=== PATIENT | female | born 1950 | race Caucasian/White ===

== ENCOUNTER 2017-02-20 22:14 | Inpatient (IN) | payer MEDICARE, BC ==
--- NOTE | 2017-02-21 00:02 | XR ---
EXAM: XR Right Knee, 3 views. CLINICAL HISTORY: Reason: Pain TECHNIQUE: Three views of the right knee. COMPARISON: No relevant prior studies available. FINDINGS: Bones/joints: Advanced osteoarthritis involves the knee joint with moderately severe involvement of the patellofemoral joint. Small bony density projecting along the superior-lateral aspect of patella may represent loose body. No evidence of acute fracture, dislocation or bony erosion. No significant knee joint effusion identified. Soft tissues: Mild soft tissue edematous changes anterior to the patellar tendon. IMPRESSION: Advanced osteoporotic about the knee and patellofemoral joint. Possible small loose body in the suprapatellar region. No evidence of acute fracture or dislocation.
[2017-02-21 00:26] LABS: Basophils # (A) 0.1 k/uL (0-0.2); Basophils % (A) 1 %; CH 28.5; CHCM 30.5; Eosinophils # (A) 1.3 k/uL (0-0.7); Eosinophils % (A) 14 %; HCT 28.9 % (34.0-46.0); HDW 2.83; HGB 9.2 gm/dL (11.4-16.0); Hypochromasia Moderate; Luc # (Auto) 0.25; Luc % (Auto) 3; Lymphocytes # (A) 3.5 k/uL (1.0-4.8); Lymphocytes % (A) 38 %; MCH 29.8 pg (25.0-35.0); MCHC 31.7 g/dL (31.0-37.0); MCV 93.9 fL (80.0-100.0); Mean Platelet Volume 8.1; Monocytes # (A) 0.4 k/uL (0-1.0); Monocytes % (A) 5 %; Neutrophils # (A) 3.7 k/uL (1.3-7.7); Neutrophils % (A) 41 %; RBC 3.07 m/uL (3.80-5.40); RDW 15.9 % (11.5-15.5); WBC 9.2 k/uL (3.8-10.6); WBC (Perox) 9.23
[2017-02-21 00:31] LABS: INR 1.2 (<1.1); Prothrombin Time 12.3 sec (9.0-12.0)
[2017-02-21 00:39] LABS: ALT 21 U/L (9-52); AST 17 U/L (14-36); Alkaline Phosphatase 123 U/L (38-126); Anion Gap 11 mmol/L; Blood Urea Nitrogen 13 mg/dL (7-17); Calcium 8.7 mg/dL (8.4-10.2); Carbon Dioxide 26 mmol/L (22-30); Chloride 105 mmol/L (98-107); Glucose 109 mg/dL (74-99); Non-African American GFR(MDRD) >60 (>60 ml/min/1.73 sqM); Potassium 3.8 mmol/L (3.5-5.1); Sodium 142 mmol/L (137-145); Total Bilirubin 0.3 mg/dL (0.2-1.3); Total Protein 6.8 g/dL (6.3-8.2)
[2017-02-21] MEDS ORDERED: NALOXONE 0.4 MG/ML 1 ML VIAL IV PRN (00:48)
--- NOTE | 2017-02-21 00:48 | ED ---
General Adult HPI - General Chief complaint: Extremity Injury, Lower Stated complaint: knee pain Time Seen by Provider: 02/20/17 23:02 Source: patient, family, RN notes reviewed, old records reviewed Mode of arrival: EMS Limitations: no limitations - History of Present Illness Initial comments: Chief complaint history of present illness a 26-year-old female who was in emergency room yesterday she fell on her knees. X-ray of the left knee was negative. She is on Xarelto since last night she developed significant amount of swelling with ecchymosis. Increased pain associated with increased effusion. Also some small hydrostatic blisters over the knee. Patient states her right knee became swollen and tender today. X-ray pending - Related Data Home Medications Medication Instructions Recorded Confirmed Dapsone 100 mg PO DAILY 06/20/14 02/26/16 Diazepam 4 mg PO QAM 06/20/14 02/26/16 Metoprolol Tartrate [Lopressor] 100 mg PO BID 06/20/14 02/26/16 sulfaSALAzine [Azulfidine] 500 mg PO Q6H 06/21/14 02/26/16 Acetaminophen Tab [Tylenol] 500 mg PO BID 02/26/16 02/26/16 Diazepam [Valium] 2 mg PO HS 02/26/16 02/26/16 Metaxalone [Skelaxin] 800 mg PO TID 02/26/16 02/26/16 Rivaroxaban [Xarelto] 20 mg PO DAILY 02/26/16 02/26/16 Previous Rx's Medication Instructions Recorded Aspirin EC [Ecotrin] 81 mg PO DAILY #30 tablet. 02/28/16 Atorvastatin [Lipitor] 20 mg PO HS #30 tab 02/28/16 Allergies Allergy/AdvReac Type Severity Reaction Status Date / Time codeine Allergy Nausea & Verified 02/20/17 22:28 Vomiting honey Allergy Swelling Verified 02/20/17 22:28 Iodinated Contrast Media - Allergy Swelling Verified 02/20/17 22:28 Oral and [Iodinated Contrast Media - IV Dye] iodine Allergy AVOIDS Verified 02/20/17 22:28 SHELL FISH ALLERGY morphine Allergy Nausea & Verified 02/20/17 22:28 Vomiting piroxicam [From Feldene] Allergy Swelling Verified 02/20/17 22:28 shellfish derived Allergy Swelling Verified 02/20/17 22:28 venom-honey bee Allergy Anaphylaxis Verified 02/20/17 22:28 [bee venom (honey bee)] Review of Systems ROS Statement: Those systems with pertinent positive or pertinent negative responses have been documented in the HPI. Review of systems no complaint of a headache or chest pain or shortness of breath no abdominal pain no nausea no vomiting. She has pain to both knees, left significantly swollen. All systems are reviewed. 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 Also hypertension, rheumatoid arthritis since a child. And fibromyalgia. The patient's past medical problems include A. fib which was treated with cardiac ablation. She is taking Xarelto for the previous stroke. She also had an appendectomy, cholecystectomy, bilateral knee arthroscopies. And bilateral tubal ligation. Family history not to drive. The patient has ALLERGIES to codeine, honey, iodine contrast material both oral and IV. Morphine, piroxicam, shellfish derived. ROS Other: All systems not noted in ROS Statement are negative. Past Medical History Past Medical History: CVA/TIA, Hypertension, Rheumatoid Arthritis (RA) Additional Past Medical History / Comment(s): fibromyalgia History of Any Multi-Drug Resistant Organisms: None Reported Past Surgical History: Appendectomy, Cardiac Ablation, Cholecystectomy, Orthopedic Surgery, Tubal Ligation Past Anesthesia/Blood Transfusion Reactions: No Reported Reaction Past Psychological History: Anxiety Smoking Status: Never smoker Past Alcohol Use History: None Reported Past Drug Use History: None Reported - Past Family History Mother Family Medical History: Congestive Heart Failure (CHF), CVA/TIA, Diabetes Mellitus, Hypertension Father Family Medical History: Myocardial Infarction ([place]) Sister(s) Family Medical History: Dementia Additional Family Medical History / Comment(s): schizophrenia Brother(s) Family Medical History: AFIB, Coronary Artery Disease (CAD), Dementia Additional Family Medical History / Comment(s): alcoholism, x3 stents General Exam - General Exam Comments Initial Comments: General: The patient is awake and alert, with swelling and pain to her left knee. Vital signs show temperature 97.9 pulse 80 history rate 18 pulse ox 97% room air blood pressure 177/85. Eye: Pupils are equal, round and reactive to light, extra-ocular movements are intact ; there is normal conjunctiva bilaterally. No signs of icterus. Ears, nose, mouth and throat: There are moist mucous membranes and no oral lesions. Poor dentition. Neck: The neck is supple, there is no tenderness . Cardiovascular: There is a regular rate and rhythm. Very faint murmur heard over the aortic valve. Respiratory: Lungs are clear to auscultation, respirations are non-labored, breath sounds are equal. No wheezes, stridor, rales, or rhonchi. Gastrointestinal: Soft, non-distended, non-tender abdomen without masses or organomegaly noted. There is no rebound or guarding present. No CVA tenderness. Bowel sounds are unremarkable. Back: There is no tenderness to palpation in the midline. There is no obvious deformity. No rashes noted. Musculoskeletal: Mild swelling tenderness to the right knee. X-ray is reviewed no acute fracture. Examination of left knee shows significant amount swelling with ecchymosis and small hydrostatic blisters from swelling. None are open. Sterile bandage be applied ice packs on top of that. Neurological: CN II-XII intact, There are no obvious motor or sensory deficits. Coordination appears grossly intact. Speech is normal. History of stroke that she states effect of the right side but no dysfunction appreciated this time. Skin: Skin is warm and dry and no rashes or lesions are noted. Limitations: no limitations Course Vital Signs 02/20/17 02/20/17 02/21/17 22:23 23:01 00:13 Temperature 97.9 F Pulse Rate 80 Respiratory 18 18 16 Rate Blood Pressure 177/85 O2 Sat by Pulse 97 97 Oximetry Medical Decision Making - Medical Decision Making Medical decision making; the patient's white count is 9.2 hemoglobin 9.2 hematocrit 28.9. X-ray of the right knee was done and reviewed by radiologist his final impression is advanced osteoporotic about the knee and patella femoral joint. Possible small loose body in the suprapatellar region. No evidence of acute fracture dislocation. As read by Dr. John The patient will be admitted with the leg elevated ice packs to help decrease swelling of the left knee. Still dressing to protect from infection from the small blisters associated with hydrostatic pressure secondary to swelling. The patient is on Xarelto which is increased the amount of knee effusion. The patient be admitted to Dr. Lara, on-call hospitalist. Case discussed with nurse practitioner to Zaheer Grigsby. - Lab Data Result diagrams: 02/21/17 00:05 Lab Results 02/21/17 Range/Units 00:05 WBC 9.2 (3.8-10.6) k/uL RBC 3.07 L (3.80-5.40) m/uL Hgb 9.2 L (11.4-16.0) gm/dL Hct 28.9 L (34.0-46.0) % MCV 93.9 (80.0-100.0) fL MCH 29.8 (25.0-35.0) pg MCHC 31.7 (31.0-37.0) g/dL RDW 15.9 H (11.5-15.5) % Plt Count 260 (150-450) k/uL Neutrophils % 41 % Lymphocytes % 38 % Monocytes % 5 % Eosinophils % 14 % Basophils % 1 % Neutrophils # 3.7 (1.3-7.7) k/uL Lymphocytes # 3.5 (1.0-4.8) k/uL Monocytes # 0.4 (0-1.0) k/uL Eosinophils # 1.3 H (0-0.7) k/uL Basophils # 0.1 (0-0.2) k/uL Hypochromasia Moderate Disposition Clinical Impression: Effusion of left knee Disposition: ADMITTED IP TO THIS HOSP
[2017-02-21 01:57] VITALS: BMI 42.5
[2017-02-21] MEDS: oxyCODONE-APAP 5-325MG 1 EACH TAB PO PRN ×3 (03:48→17:15)
[2017-02-21] MEDS: SODIUM CHLORIDE 0.9% 1,000 ML IV SCH ×2 (03:51→17:17)
[2017-02-21] MEDS: METOPROLOL TARTRATE 50 MG TAB PO SCH ×2 (08:11→20:50)
[2017-02-21] MEDS: DIAZEPAM 2 MG TAB PO SCH ×2 (08:11→20:14)
[2017-02-21] MEDS: CYCLOBENZAPRINE 10 MG TAB PO SCH ×3 (08:11→20:50)
--- NOTE | 2017-02-21 08:52 | P.CNOR ---
History of Present Illness - [facility] Consult date: 02/21/17 Consult reason: joint pain (Left knee) History of present illness: This is a 66-year-old female who fell in her home on 02/19/2017 sustaining injury to her left knee. She is on Xarelto for history of stroke and TIA. She came to the emergency department in the evening on 02/19/2017. X-rays were negative. She was discharged to home with pain medication. She returned to the emergency department last evening with increased swelling and bruising to the knee. She is also form some blisters to the area. She is admitted to internal medicine and we're consulted for orthopedic evaluation. Past Medical History Past Medical History: CVA/TIA, Hypertension, Rheumatoid Arthritis (RA) Additional Past Medical History / Comment(s): fibromyalgia History of Any Multi-Drug Resistant Organisms: None Reported Past Surgical History: Appendectomy, Cardiac Ablation, Cholecystectomy, Orthopedic Surgery, Tubal Ligation Past Anesthesia/Blood Transfusion Reactions: No Reported Reaction Past Psychological History: Anxiety Smoking Status: Never smoker Past Alcohol Use History: None Reported Past Drug Use History: None Reported - Past Family History Mother Family Medical History: Congestive Heart Failure (CHF), CVA/TIA, Diabetes Mellitus, Hypertension Father Family Medical History: Myocardial Infarction ([place]) Sister(s) Family Medical History: Dementia Additional Family Medical History / Comment(s): schizophrenia Brother(s) Family Medical History: AFIB, Coronary Artery Disease (CAD), Dementia Additional Family Medical History / Comment(s): alcoholism, x3 stents Medications and Allergies Home Medications Medication Instructions Recorded Confirmed Type Dapsone 100 mg PO DAILY 06/20/14 02/21/17 History Metoprolol Tartrate [Lopressor] 100 mg PO BID 06/20/14 02/21/17 History sulfaSALAzine [Azulfidine] 500 mg PO Q6H 06/21/14 02/21/17 History Acetaminophen Tab [Tylenol] 1,000 mg PO BID 02/26/16 02/21/17 History Diazepam [Valium] 10 mg PO DAILY PRN 02/26/16 02/21/17 History Rivaroxaban [Xarelto] 20 mg PO DAILY 02/26/16 02/21/17 History Albuterol Inhaler [Ventolin Hfa 1 - 2 puff INHALATION RT-Q6H PRN 02/21/17 History Inhaler] Amitriptyline HCl [Elavil] 10 mg PO DAILY 02/21/17 02/21/17 History Chlorzoxazone [Parafon Forte Dsc] 500 mg PO TID 02/21/17 02/21/17 History Allergies Allergy/AdvReac Type Severity Reaction Status Date / Time banana Allergy Itching Verified 02/21/17 08:24 codeine Allergy Nausea & Verified 02/21/17 07:58 Vomiting honey Allergy Swelling Verified 02/21/17 07:58 Iodinated Contrast Media - Allergy Swelling Verified 02/21/17 07:58 Oral and [Iodinated Contrast Media - IV Dye] iodine Allergy AVOIDS Verified 02/21/17 07:58 SHELL FISH ALLERGY morphine Allergy Nausea & Verified 02/21/17 07:58 Vomiting piroxicam [From Feldene] Allergy Swelling Verified 02/21/17 07:58 shellfish derived Allergy Swelling Verified 02/21/17 07:58 venom-honey bee Allergy Anaphylaxis Verified 02/21/17 07:58 [bee venom (honey bee)] Physical Examination This is a 66-year-old female in no acute distress. She is alert and oriented 3. Exam of the lower extremities reveals significant swelling and ecchymosis to the left knee. The skin is taut and tender with palpation. There are multiple blisters in various sizes about the anterior aspect of the knee. She is unable to actively flex the knee. She has full foot and ankle motion without difficulty or pain. Pedal pulses +2/4. Neurovascular status of lower extremity is intact. The remainder of her musculoskeletal l exam is unremarkable. Results X-rays of the left knee show moderate degenerative changes. No obvious fractures noted. - Labs Result Diagrams: 02/21/17 00:05 02/21/17 00:05 Assessment and Plan (1) Hematoma of left lower extremity Status: Acute (2) Hemarthrosis, left knee Status: Acute Plan: The clinical and x-ray findings are discussed with the patient. The blisters are dressed with Adaptic and gauze. A compressive Josef wrap is applied to the left lower extremity. I will review the case with Dr. Dumont she may potentially need a debridement in the operating room. She had breakfast today and is still on her Xarelto. The nurse is advised to hold the Xarelto. I will report back with further recommendations.
[2017-02-21] MEDS ORDERED: DIAZEPAM 5 MG TAB PO STA (11:04)
[2017-02-21] MEDS: ceFAZolin 2 GM in SODIUM CHLORIDE 0.9% 100 ML IVPB SCH ×2 (12:01→20:53)
--- NOTE | 2017-02-21 13:18 | P.GSCN ---
History of Present Illness History of present illness: 66-year-old white female, patient came to the emergency room dated 02/19/2017 with a history of fall at home on her left knee she developed swelling and hematoma formation noted of the left lower extremity involving the knee area patient had x-ray of the knee there was no broken bones noted Patient has been on Zaroxolyn for history of TIA and stroke in the past medical history history of hypertension, history of CVA in the past, history of rheumatoid arthritis, Personal history nonsmoker no known ALLERGIES On examination neck is supple no bruit appreciated Chest clear to auscultation first and second sound is normal Abdomen soft nontender Vascular examination femorals are 1+ dorsal pedis is palpable there is bruising noted on the anterior aspect of the left knee with some blister formation There is no evidence of vascular compromise most likely she has a hematoma and she she is also on his arousal patient scheduled to have a MRI of the knee we' ll follow with you thank very much Past Medical History Past Medical History: CVA/TIA, Hypertension, Rheumatoid Arthritis (RA) Additional Past Medical History / Comment(s): fibromyalgia History of Any Multi-Drug Resistant Organisms: None Reported Past Surgical History: Appendectomy, Cardiac Ablation, Cholecystectomy, Orthopedic Surgery, Tubal Ligation Past Anesthesia/Blood Transfusion Reactions: No Reported Reaction Past Psychological History: Anxiety Smoking Status: Never smoker Past Alcohol Use History: None Reported Past Drug Use History: None Reported - Past Family History Mother Family Medical History: Congestive Heart Failure (CHF), CVA/TIA, Diabetes Mellitus, Hypertension Father Family Medical History: Myocardial Infarction ([place]) Sister(s) Family Medical History: Dementia Additional Family Medical History / Comment(s): schizophrenia Brother(s) Family Medical History: AFIB, Coronary Artery Disease (CAD), Dementia Additional Family Medical History / Comment(s): alcoholism, x3 stents Medications and Allergies Home Medications Medication Instructions Recorded Confirmed Type Dapsone 100 mg PO DAILY 06/20/14 02/21/17 History Metoprolol Tartrate [Lopressor] 100 mg PO BID 06/20/14 02/21/17 History sulfaSALAzine [Azulfidine] 500 mg PO Q6H 06/21/14 02/21/17 History Acetaminophen Tab [Tylenol] 1,000 mg PO BID 02/26/16 02/21/17 History Diazepam [Valium] 10 mg PO DAILY PRN 02/26/16 02/21/17 History Rivaroxaban [Xarelto] 20 mg PO DAILY 02/26/16 02/21/17 History Albuterol Inhaler [Ventolin Hfa 1 - 2 puff INHALATION RT-Q6H PRN 02/21/17 History Inhaler] Amitriptyline HCl [Elavil] 10 mg PO DAILY 02/21/17 02/21/17 History Chlorzoxazone [Parafon Forte Dsc] 500 mg PO TID 02/21/17 02/21/17 History Allergies Allergy/AdvReac Type Severity Reaction Status Date / Time banana Allergy Itching Verified 02/21/17 08:24 codeine Allergy Nausea & Verified 02/21/17 07:58 Vomiting honey Allergy Swelling Verified 02/21/17 07:58 Iodinated Contrast Media - Allergy Swelling Verified 02/21/17 07:58 Oral and [Iodinated Contrast Media - IV Dye] iodine Allergy AVOIDS Verified 02/21/17 07:58 SHELL FISH ALLERGY morphine Allergy Nausea & Verified 02/21/17 07:58 Vomiting piroxicam [From Feldene] Allergy Swelling Verified 02/21/17 07:58 shellfish derived Allergy Swelling Verified 02/21/17 07:58 venom-honey bee Allergy Anaphylaxis Verified 02/21/17 07:58 [bee venom (honey bee)] Surgical - Exam Vital Signs Temp Pulse Resp BP Pulse Ox 97.9 F 80 18 177/85 97 02/20/17 22:23 02/20/17 22:23 02/20/17 22:23 02/20/17 22:23 02/20/17 22:23 Results - Labs 02/21/17 00:05 02/21/17 00:05
[2017-02-21] MEDS ORDERED: ALBUTEROL NEBULIZED 2.5 MG/3 ML INHALATION PRN ×2 (15:39→15:53)
[2017-02-21] MEDS ORDERED: CHLORZOXAZONE 500 MG PO SCH (16:00)
[2017-02-21] MEDS: sulfaSALAzine 500 MG TAB PO SCH ×2 (17:15→20:50)
[2017-02-21] MEDS: NYSTATIN 100,000 UNIT/GM POWD 15 GM TOPICAL SCH ×2 (17:16→20:51)
[2017-02-21] MEDS: ATORVASTATIN 20 MG TAB PO SCH (20:50)
--- NOTE | 2017-02-21 21:26 | MR ---
EXAMINATION TYPE: MR knee LT wo con DATE OF EXAM: 02/21/2017 8:05 PM COMPARISON: Left knee x-ray from 2 days earlier. HISTORY: Fall, Lt knee pain, swelling TECHNIQUE: Multiplanar, multisequence images of the knee is performed without IV contrast. FINDINGS: Exam is suboptimal secondary to patient's large body habitus. MEDIAL MENISCUS: Increased signal anterior posterior horn of medial meniscus is not distinctly extend to articular surface, findings are consistent with intrasubstance tear. LATERAL MENISCUS: Anterior and posterior horns are intact without tear. CRUCIATE LIGAMENTS: The anterior and posterior cruciate ligaments are intact and unremarkable. COLLATERAL LIGAMENTS: The medial collateral ligament and lateral collateral ligament complex are inta ct. Surrounding edema at level of medial collateral ligament is noted. EXTENSOR MECHANISM: Visualized quadriceps and patellar tendons are intact. EFFUSION: There is moderate to large suprapatellar joint effusion. POPLITEAL CYST: No popliteal/slaughter cyst. TRICOMPARTMENT SPACES: There is moderate to severe joint space loss with mild to moderate spurring pa tellofemoral compartment. There is mild to moderate spurring and joint space loss medial and lateral tibiofemoral compartments. CARTILAGE: Full-thickness chondromalacia patella along posterior patellar pole is present. There is m arked thinning of articular cartilage medial tibiofemoral compartment. BONE MARROW SIGNAL: Small bowel heterogeneity is seen. No occult fracture is noted. Some T2 hyperinte nse signal posterior patellar pole is noted at sites of full-thickness cartilaginous loss. OTHER: There is abundance of surrounding adipose tissue with mild to moderate diffuse subcutaneous ed charity is present. IMPRESSION: 1. No full-thickness meniscal or ligamentous tear is seen. Intrasubstance tear involving the medial m eniscus is present at anterior and posterior horns. 2. Mild to moderate MCL sprain injury. 3. Moderate to advanced tricompartment degenerative changes with significant chondromalacia patella a s detailed above. 4. Moderate to large suprapatellar joint effusion. 5. Mild to moderate diffuse subcutaneous edema.
--- NOTE | 2017-02-21 21:28 | HP ---
DATE OF ADMISSION: 02/21/2017 CHIEF COMPLAINT: Pain and swelling of the left knee. HISTORY OF PRESENT ILLNESS: This 66-year-old woman with a past medical history of multiple medical problems such as CVA, TIA, hypertension, history of rheumatoid arthritis, history of proximal cardiac arrhythmia, history of cardiac ablation, history of fibromyalgia, history of cholecystectomy, history of DJD, anxiety, being followed by Dr. Adames in the outpatient setting, was apparently taking Xarelto for some time. The patient came from the bathroom, fell on her knees. The left knee developed a significant amount of swelling and ecchymosis by nighttime, and the patient came to [facility] and was admitted for further evaluation and treatment. The patient was thought to have significant hematoma of the left knee. Patient also had some bruising, and some blisters to the area were also noted. Orthopedics is evaluating the patient and recommending possible debridement in the operating room. The patient is being closely monitored. There is no history of any fever, rigor, or chills. No history of any headache, loss of consciousness, seizures. PAST MEDICAL HISTORY: 1. History of CVA, TIA. 2. Hypertension. 3. Cardiac arrhythmia. 4. Rheumatoid arthritis. 5. Fibromyalgia. 6. Appendectomy. 7. Cardiac ablation. 8. Anxiety. HOME MEDICATIONS: 1. Albuterol 1 to 2 puffs q.6 p.r.n. 2. Azulfidine 500 mg q.6. 3. Xarelto 20 mg daily. 4. Lopressor 100 mg b.i.d. 5. Valium 10 mg p.o. daily p.r.n. 6. Dapsone 100 mg p.o. daily. 7. Parafon 500 mg p.o. t.i.d. 8. Ecotrin 81 mg p.o. daily. 9. Elavil 10 mg p.o. daily. 10. Tylenol 1000 mg p.o. b.i.d. ALLERGIES: 1. BANANA. 2. CODEINE. 3. HONEY. 4. IODINATED CONTRAST DYE. 5. MORPHINE. 6. PIROXICAM. 7. SHELLFISH. 8. HONEYBEE VENOM. FAMILY HISTORY: History of CHF, CVA, TIA, diabetes, hypertension, schizophrenia in the family. SOCIAL HISTORY: No history of smoking. No history of alcohol intake. REVIEW OF SYSTEMS: ENT: No diminishing hearing. No diminished vision. CARDIOVASCULAR SYSTEM: No angina, palpitations. RESPIRATORY SYSTEM: No cough, hemoptysis. GI: No nausea, vomiting. : No dysuria, retention. NERVOUS SYSTEM: As mentioned earlier. ALLERGY/IMMUNOLOGY: No asthma, hayfever. MUSCULOSKELETAL: As mentioned earlier. HEMATOLOGY/ONCOLOGY: As mentioned earlier. ENDOCRINE: No history of diabetes or hypothyroidism. CONSTITUTIONAL: As mentioned earlier. DERMATOLOGY: Negative. RHEUMATOLOGY: Negative. PSYCHIATRY: As mentioned earlier. PHYSICAL EXAMINATION: Patient is alert and oriented x3. Pulse 78, blood pressure 156/82, respiration 16, temperature 99.1, pulse ox 92% on room air. HEENT: Conjunctivae normal. Oral mucosa moist. NECK: No jugular venous distention. No carotid bruit. No lymph node enlargement. CARDIOVASCULAR SYSTEM: S1, S2 muffled. No S3. No S4. RESPIRATORY SYSTEM: Breath sounds diminished at the bases. A few scattered rhonchi. No crackles. ABDOMEN: Soft, nontender. No mass palpable. LEGS: Left knee swelling; painful. Pulses felt normally. NERVOUS SYSTEM: Higher functions as mentioned earlier. Moves all 4 limbs. No focal motor or sensory deficit. LYMPHATICS: No lymph node palpable in neck, axillae or groin. SKIN: No ulcer, rash, bleeding. LABS: WBC 9.2, hemoglobin 9.2. INR is 1.2. Glucose 109. ASSESSMENT: 1. Status post fall and left knee hematoma. 2. Anemia, normocytic; anemia of chronic disease possibly. 3. On Xarelto. 4. Possible hemarthrosis of the left knee. 5. History of transient ischemic attack of the left hemisphere previously. 6. Hyperlipidemia. 7. Hypertriglyceridemia. 8. Hypertension. 9. History of rheumatoid arthritis. 10. History of fibromyalgia. 11. History of appendectomy. 12. History of cardiac ablation. 13. History of cholecystectomy. 14. History of degenerative joint disease. 15. History of anxiety. RECOMMENDATIONS AND DISCUSSION: In this 66-year-old woman who presented with multiple complex medical issues, we will monitor the patient closely, continue the current medication, continue with symptomatic treatment. I recommend holding the Xarelto at this time. I would recommend an orthopedic evaluation. Repeat labs hemoglobin. Cardiology has also been consulted. Further recommendations to follow. A copy of this dictation is being forwarded to Dr. Adames, who is the primary physician. Vascular Surgery has also been consulted for evaluation of the lower leg. LARISSA
[2017-02-22] MEDS: oxyCODONE-APAP 5-325MG 1 EACH TAB PO PRN ×3 (02:28→16:51)
[2017-02-22] MEDS: sulfaSALAzine 500 MG TAB PO SCH ×4 (03:45→22:14)
[2017-02-22] MEDS ORDERED: diphenhydrAMINE 50 MG/ML 1 ML VIAL IVP ONE (07:38)
[2017-02-22] MEDS ORDERED: methylPREDNISolone SOD SUCCI 125 MG/2 ML VIAL IV ONE (07:38)
[2017-02-22] MEDS ORDERED: FAMOTIDINE 20 MG/2 ML VIAL IV ONE (07:38)
[2017-02-22] MEDS ORDERED: RX INFO: IV CONTRAST WAS GIVEN 1 EACH MISC MISCELLANE PRN (07:38)
[2017-02-22 08:17] LABS: Anisocytosis Slight; Basophils # (A) 0.1 k/uL (0-0.2); Basophils % (A) 1 %; CH 28.7; CHCM 30.3; Eosinophils # (A) 1.1 k/uL (0-0.7); Eosinophils % (A) 9 %; HCT 28.1 % (34.0-46.0); HDW 2.62; HGB 8.6 gm/dL (11.4-16.0); Hypochromasia Moderate; Luc # (Auto) 0.35; Luc % (Auto) 3; Lymphocytes # (A) 4.2 k/uL (1.0-4.8); Lymphocytes % (A) 35 %; MCH 29.2 pg (25.0-35.0); MCHC 30.6 g/dL (31.0-37.0); MCV 95.4 fL (80.0-100.0); Mean Platelet Volume 7.5; Monocytes # (A) 0.8 k/uL (0-1.0); Monocytes % (A) 7 %; Neutrophils # (A) 5.3 k/uL (1.3-7.7); Neutrophils % (A) 45 %; RBC 2.94 m/uL (3.80-5.40); RDW 16.3 % (11.5-15.5); WBC 11.9 k/uL (3.8-10.6); WBC (Perox) 11.69
[2017-02-22 08:22] LABS: Anion Gap 11 mmol/L; Blood Urea Nitrogen 13 mg/dL (7-17); Calcium 8.6 mg/dL (8.4-10.2); Carbon Dioxide 24 mmol/L (22-30); Chloride 103 mmol/L (98-107); Glucose 111 mg/dL (74-99); Non-African American GFR(MDRD) >60 (>60 ml/min/1.73 sqM); Potassium 4.4 mmol/L (3.5-5.1); Sodium 138 mmol/L (137-145)
[2017-02-22] MEDS: DAPSONE 25 MG TAB PO SCH (10:06)
[2017-02-22] MEDS: CYCLOBENZAPRINE 10 MG TAB PO SCH ×3 (10:06→22:14)
[2017-02-22] MEDS: METOPROLOL TARTRATE 50 MG TAB PO SCH ×2 (10:06→22:14)
[2017-02-22] MEDS: AMITRIPTYLINE HCL 10 MG TAB PO SCH (10:07)
[2017-02-22] MEDS: ceFAZolin 2 GM in SODIUM CHLORIDE 0.9% 100 ML IVPB SCH ×2 (10:12→22:13)
--- NOTE | 2017-02-22 10:36 | CT ---
EXAMINATION TYPE: CT angio lower extremity LT DATE OF EXAM: 02/22/2017 10:22 AM COMPARISON: NONE HISTORY: Lt lower extremity occlusion CT DLP: 1055.9 mGycm Automated exposure control for dose reduction was used. TECHNIQUE: Performed with IV Contrast, patient injected with 100 mL of Omnipaque 350. 3-D reconstruction imaging of the lower extremities was performed at a separate workstation.. FINDINGS: Imaged portions of the common iliac arteries are patent bilaterally. Mild plaque is seen at the right -sided bifurcation. The internal and external iliac arteries as well as the common femoral arteries, profundofemoral and superficial femoral arteries are all patent. Minimal scattered calcified plaque d isease is seen. Popliteal arteries are also patent bilaterally with mild calcific plaque at the right popliteal artery resulting in a 30% stenosis. Tibial peroneal trunks are patent bilaterally as are t he anterior and posterior tibial arteries and peroneal arteries. Runoff to both feet is limited. There is a soft tissue edema overlying the left knee. Moderate joint effusion. Suspect a small subcut aneous hematoma. No obvious displaced fracture at this time. IMPRESSION: 1. VERY MILD SCATTERED CALCIFIC PLAQUE DISEASE WITHOUT VASCULAR OCCLUSION. 2. POSTTRAUMATIC CHANGES TO THE LEFT KNEE WITH SUBCUTANEOUS HEMATOMA MEASURING 4.5 X 0.2 CM. JOINT EF FUSION ALSO NOTED.
--- NOTE | 2017-02-22 12:38 | P.PN ---
Subjective Principal diagnosis: Left knee edema/effusion Patient is seen at bedside this am. She continues to have pain at the left knee as expected. She has no new complaints. She denies new numbness or tingling. She denies calf pain, fever, chills, chest pain, or SOB. Objective - Vital Signs Vital signs: Vital Signs Temp 98.6 F 02/22/17 07:00 Pulse 110 H 02/22/17 07:00 Resp 16 02/22/17 07:00 BP 102/77 02/22/17 07:00 Pulse Ox 94 L 02/22/17 07:00 Intake & Output 02/21/17 02/22/17 02/22/17 18:59 06:59 18:59 Intake Total 740 100 Balance 740 100 Intake: IV 260 Sodium Chloride 0.9% 1, 160 000 ml @ 20 mls/hr IV . Q24H BING Rx#:[id number] ceFAZolin 2 gm In Sodium 100 Chloride 0.9% 100 ml @ 100 mls/hr IVPB Q12HR BING Rx#:[id number] Oral 480 100 Other: Voiding Method Diaper # Voids 2 1 - Exam Global echymosis and edema of the left knee. It is no put through range of motion. Blisters intact. There is no erythema and the joint is not hot to touch. Calf is soft. Motor intact at the ankle and foot. Sensation to light touch intact throughout left lower extremity. Good perfusion distally. The foot and toes are warm to touch. - Constitutional General appearance: Present: no acute distress, obese - Psychiatric Psychiatric: Present: A&O x's 3, appropriate affect, intact judgment & insight - Labs CBC & Chem 7: 02/22/17 07:25 02/22/17 07:25 Labs: Abnormal Lab Results - Last 24 Hours (Table) 02/22/17 02/22/17 Range/Units 07:25 07:25 WBC 11.9 H (3.8-10.6) k/uL RBC 2.94 L (3.80-5.40) m/uL Hgb 8.6 L (11.4-16.0) gm/dL Hct 28.1 L (34.0-46.0) % MCHC 30.6 L (31.0-37.0) g/dL RDW 16.3 H (11.5-15.5) % Eosinophils # 1.1 H (0-0.7) k/uL Glucose 111 H (74-99) mg/dL - Imaging and Cardiology MRI of the left knee showed effusion in the suprapatellar compartment. There is mild meniscus tear and MCL sprain. Assessment and Plan (1) Hematoma of left lower extremity Narrative/Plan: Will continue to monitor the knee. Continue pain management and elevation of left lower extremity. Surgical intervention not planned for now. Vascular and internal medicine are following as well. Further recommendations forthcoming Status: Acute Time with Patient: Less than 30
[2017-02-22] MEDS: DIAZEPAM 2 MG TAB PO SCH ×2 (13:13→22:14)
--- NOTE | 2017-02-22 16:16 | CONS ---
DATE OF CONSULTATION: 02/22/2017 REASON FOR CONSULTATION: Left knee pre-patellar hematoma. HISTORY OF PRESENT ILLNESS: Ciarra is a very pleasant 66-year-old female whom I visited at the bedside today. Her history is that she fell in her home on the evening of 02/19/2017, sustaining injury to her left knee. She is on Xarelto for history of stroke and TIA. She initially came to the emergency department in the evening of 02/19/2017. X-rays were negative. She was then discharged home with pain medication. She then returned to the emergency department the evening of 02/20/2017 with increased swelling and bruising to the knee. She also noted some form of clear blisters in the area. She was admitted to Internal Medicine and we were consulted for orthopedic evaluation. MEDICAL HISTORY: 1. CVA. 2. TIA. 3. Hypertension. 4. Rheumatoid arthritis. 5. Fibromyalgia. SURGICAL HISTORY: 1. Appendectomy. 2. Cardiac ablation. 3. Cholecystectomy. 4. Tubal ligation. She denies nicotine and alcohol use. She does live at home. Medications include: 1. Dapsone. 2. Metoprolol. 3. Sulfasalazine. 4. Acetaminophen. 5. Diazepam. 6. Rivaroxaban. 7. Albuterol inhaler. 8. Amitriptyline. 9. Chlorzoxazone. ALLERGIES: 1. BANANA. 2. CODEINE. 3. HONEY. 4. IODINE CONTRAST MEDIA. 5. IODINE. 6. MORPHINE. PHYSICAL EXAMINATION: On examination she is resting very comfortably. She is feeling a little bit better today. She is alert and oriented x3. She did have an Josef wrap around the knee. I did remove this. She does have multiple serous blistering around the knee. There is significant ecchymosis and bruising noted as well. The skin is taut and tender to palpation. She has very minimal to no swelling distally in the calf. She has intact flexion-extension, inversion-eversion of the ankle. She has intact flexion-extension of all of her toes. She has intact lateral, medial, plantar and first dorsal web space sensation. She has a 2+ posterior tibial pulse. X-rays of the knee show moderate degenerative arthritic changes. There are no obvious fractures noted. There is no evidence of osseous lesions. She did have an MRI noted about the knee. This is a ( ) report; I have not been able to review the images, but the report notes a mild medial collateral ligament sprain as well as a potential degenerative meniscus tear, but no other intra-articular process noted. There is a large subcutaneous hematoma noted about the knee. LABORATORY EVALUATION OF 02/21: Hemoglobin was 9.2, platelets 260, white count 9.2. ASSESSMENT: Subcutaneous hematoma of the left knee. RECOMMENDATIONS: She does have a fairly significant subcutaneous hematoma of the left knee. She was on Xarelto. Draining her hematoma right now would put her at increased bleeding risk. We did have Vascular Surgery see her as well. I do believe that they ordered a CT angiogram to evaluate the arterial system around the knee as well. I did talk to Dr. Monsalve, the vascular surgeon, about this earlier today. His recommendation was to hold off on any surgical evacuation of the hematoma at this time, waiting for the Xarelto effect to dissipate. My worry of decompressing her hematoma is skin breakdown. I do believe she would be at risk of wound dehiscence if an open decompression were done. After consulting with Dr. Monsalve, at this point in time we are going to recommend watching the hematoma, continue with wraps and elevation, and allow it to resolve on its own as much as possible. I did relay this to Hannah Mercer. She is in agreement with the plan going forward. All of her questions were answered to her satisfaction.
[2017-02-22] MEDS: NYSTATIN 100,000 UNIT/GM POWD 15 GM TOPICAL SCH ×2 (18:40→22:14)
[2017-02-22] MEDS: ATORVASTATIN 20 MG TAB PO SCH (22:14)
[2017-02-23] MEDS: SODIUM CHLORIDE 0.9% 1,000 ML IV SCH (02:49)
[2017-02-23] MEDS: sulfaSALAzine 500 MG TAB PO SCH ×4 (04:19→21:10)
--- NOTE | 2017-02-23 07:56 | PN ---
DATE OF SERVICE: 02/22/2017 This 66-year-old woman who was admitted after fall and left hematoma is being closely monitored at this time. Left lower extremity CTA was done today which showed very mild scattered calcific plaque without any vascular occlusion and posttraumatic changes of the left knee with subcutaneous hematoma, measuring 4.5 x 0.2 cm. Joint effusion also noted. The orthopedic service is following the patient closely with conservative line of management with pain management and elevation of the lower extremity. Surgery interventions is not planned. On exam, alert and oriented x3, pulse 110, blood pressure 102/77, respiratory rate 16, temperature 98.6, pulse ox 94% on room air. HEENT: Conjunctivae normal. NECK: No jugular venous distention. CARDIOVASCULAR: S1 and S2, muffled. RESPIRATORY: Breath sounds diminished at the bases. No rhonchi, no crackles. ABDOMEN: Soft, nontender. LEGS: Status post left knee hematoma, extensive hematoma of thigh area also present. NERVOUS SYSTEM: No focal deficits. LABS: WBC 11.9, hemoglobin 8.6. Otherwise, glucose 111. ASSESSMENT: 1. Status post fall and left knee hematoma. 2. Anemia, normocytic anemia of chronic disease possibly. 3. On Xarelto. 4. Possible hemarthrosis of the left knee. 5. History of transient ischemic attack of the left hemisphere previously. 6. Hyperlipidemia. 7. Hypertriglyceridemia. 8. Hypertension, essential. 9. History of rheumatoid arthritis. 10. History of fibromyalgia. 11. History of appendectomy. 12. History of cardiac ablation. 13. History of cholecystectomy. 14. History of degenerative joint disease. 15. History of anxiety. 16. FULL CODE. RECOMMENDATIONS AND DISCUSSION: In this 66-year-old woman who presented with multiple complex medical issues, we will monitor the patient closely. Continue the current medications. Continue symptomatic treatment. Otherwise, at this time, I would recommend to repeat labs. Monitor hemoglobin closely. Otherwise, closely follow with orthopedic surgery. Further recommendations to follow.
[2017-02-23 08:03] LABS: Anisocytosis Slight; Basophils # (A) 0.1 k/uL (0-0.2); Basophils % (A) 0 %; CH 27.9; CHCM 29.7; Eosinophils % (A) 0 %; HCT 25.8 % (34.0-46.0); HDW 2.81; Hypochromasia Marked; Luc # (Auto) 0.44; Luc % (Auto) 4; Lymphocytes # (A) 3.5 k/uL (1.0-4.8); Lymphocytes % (A) 31 %; MCH 29.3 pg (25.0-35.0); MCHC 30.9 g/dL (31.0-37.0); MCV 94.6 fL (80.0-100.0); Mean Platelet Volume 7.4; Monocytes % (A) 9 %; Neutrophils # (A) 6.4 k/uL (1.3-7.7); Neutrophils % (A) 56 %; RBC 2.73 m/uL (3.80-5.40); RDW 16.4 % (11.5-15.5); WBC 11.5 k/uL (3.8-10.6)
[2017-02-23 08:53] LABS: Anion Gap 10 mmol/L; Blood Urea Nitrogen 24 mg/dL (7-17); Calcium 8.6 mg/dL (8.4-10.2); Carbon Dioxide 23 mmol/L (22-30); Chloride 107 mmol/L (98-107); Glucose 106 mg/dL (74-99); Non-African American GFR(MDRD) >60 (>60 ml/min/1.73 sqM); Potassium 4.4 mmol/L (3.5-5.1); Sodium 140 mmol/L (137-145)
[2017-02-23] MEDS: CYCLOBENZAPRINE 10 MG TAB PO SCH ×3 (09:05→21:10)
[2017-02-23] MEDS: AMITRIPTYLINE HCL 10 MG TAB PO SCH (09:05)
[2017-02-23] MEDS: DAPSONE 25 MG TAB PO SCH (09:06)
[2017-02-23] MEDS: METOPROLOL TARTRATE 50 MG TAB PO SCH ×2 (09:06→20:54)
[2017-02-23] MEDS: ceFAZolin 2 GM in SODIUM CHLORIDE 0.9% 100 ML IVPB SCH ×2 (09:11→20:54)
[2017-02-23] MEDS: oxyCODONE-APAP 5-325MG 1 EACH TAB PO PRN ×3 (09:11→23:33)
[2017-02-23] MEDS: DIAZEPAM 2 MG TAB PO SCH ×2 (09:12→20:54)
--- NOTE | 2017-02-23 10:24 | P.PN ---
Subjective Principal diagnosis: Left knee hematoma/effusion Patient is seen at bedside this am. She continues to have pain at the left knee as expected. She doesn't feel it is worse. She has right knee pain as well which she states has bothered her since her fall. Xrays of the right knee taken on day of admission through ED shows advanced DJD/OA particularly of the patellofemoral compartment. No acute appearing fractures or dislocations. She has no new complaints. She denies new numbness or tingling. She denies calf pain , fever, chills, chest pain, or SOB. Objective - Vital Signs Vital signs: Vital Signs Temp 98.4 F 02/23/17 02:00 Pulse 107 H 02/23/17 02:00 Resp 16 02/23/17 02:00 BP 127/77 02/23/17 02:00 Pulse Ox 90 L 02/23/17 02:00 Intake & Output 02/22/17 02/23/17 02/23/17 18:59 06:59 18:59 Intake Total 240 Balance 240 Intake: IV 240 Sodium Chloride 0.9% 1, 140 000 ml @ 20 mls/hr IV . Q24H BING Rx#:[id number] ceFAZolin 2 gm In Sodium 100 Chloride 0.9% 100 ml @ 100 mls/hr IVPB Q12HR BING Rx#:[id number] Other: Voiding Method Diaper # Voids 1 2 - Exam Global echymosis and edema of the left knee. It is no put through range of motion as minimal movement ellicits knee pain. Blisters are benign and noninfectious appearing. There is no erythema and the joint is not hot to touch. Calf is soft. Motor intact at the ankle and foot. Sensation to light touch intact throughout left lower extremity. Good perfusion distally. The foot and toes are warm to touch. Right knee is benign with mild effusion present. No erythema or echymosis. Tender at the lateral joint line. Minimal flexion reproduces knee pain. Full extension present. Calf is soft and nontender. Dorsalis pedis pulses 2+ and less than 2 sec cap refill present. Motor intact at the ankle and foot. Sensation to light touch intact throughout left lower extremity. - Constitutional General appearance: Present: no acute distress - Psychiatric Psychiatric: Present: A&O x's 3, appropriate affect, intact judgment & insight - Labs CBC & Chem 7: 02/23/17 07:28 02/23/17 07:28 Labs: Abnormal Lab Results - Last 24 Hours (Table) 02/23/17 02/23/17 Range/Units 07:28 07:28 WBC 11.5 H (3.8-10.6) k/uL RBC 2.73 L (3.80-5.40) m/uL Hgb 8.0 L (11.4-16.0) gm/dL Hct 25.8 L (34.0-46.0) % MCHC 30.9 L (31.0-37.0) g/dL RDW 16.4 H (11.5-15.5) % BUN 24 H (7-17) mg/dL Glucose 106 H (74-99) mg/dL Assessment and Plan (1) Hematoma of left lower extremity Narrative/Plan: Will continue to monitor the knee. Continue pain management and elevation of left lower extremity. Surgical intervention not planned for now. Vascular and internal medicine are following as well. Will plan to order knee immobilizer for the left knee. Should the hematoma continue to improve she may be discharged from an orthopedic standpoint tomorrow. Will continue to follow. Status: Acute Time with Patient: Less than 30
--- NOTE | 2017-02-23 12:40 | CONS ---
DATE OF CONSULTATION: Mrs. Mercer is a 66-year-old female who is seen for cardiac evaluation. This patient's medical records reviewed. This patient had a history of fall and subsequently admitted with a hematoma of the left knee. There is no definite evidence of any fracture. This patient has a past history of stroke and TIA and she has been on Xarelto. She has a history of atrial fibrillation. Patient continues to have pain in the left knee but the hematoma is not getting worse and it is stable. Patient's home medications included Diazepam, Lopressor, Tylenol, Skelaxin, Xarelto, and baby aspirin. Past medical history includes a past history of stroke and a past history of a TIA, history of atrial fibrillation. The patient has a prior history of ablation, cholecystectomy, appendectomy, bilateral knee arthroscopy and tubal ligation. Physical examination at present reveals a 66-year-old obesely built female who does not appear to be in any acute distress. The patient's heart rate is 100 to 114, it appears irregular. Blood pressure is 127/77 mmHg. HEENT examination is negative. Neck is supple. There is no increase in jugular venous pressure. Both the carotid pulses are felt. There is no bruit. Chest is symmetrical. HEART: The PMI is not felt. First and second heart sounds are normal. Lungs are clinically clear to auscultation and percussion. Abdomen is soft. Liver and spleen are not enlarged. EXTREMITIES: Peripheral pulsations are not felt. Patient's electrolytes are normal. Creatinine is 0.72. GFR is 0.7. Patient's hemoglobin is stable between 8 and 8.6. FINAL IMPRESSION: This patient is admitted with fall and hematoma of the left knee. There is no effusion in the knee joint. This patient has a past history of stroke and transient ischemic attack and atrial fibrillation. Patient is a high risk for recurrent stroke. In view that, if the patient's hematoma remains stable, I will recommend to resume the patient's Xarelto 20 mg daily. We will recommend to discontinue the aspirin. EKG will be done and echo and Doppler study will be done.
[2017-02-23] MEDS: NYSTATIN 100,000 UNIT/GM POWD 15 GM TOPICAL SCH ×3 (13:24→21:03)
[2017-02-23] MEDS ORDERED: RIVAROXABAN 10 MG TAB PO SCH (17:30)
[2017-02-23] MEDS: ATORVASTATIN 20 MG TAB PO SCH (20:54)
[2017-02-24] MEDS: SODIUM CHLORIDE 0.9% 1,000 ML IV SCH (00:34)
[2017-02-24] MEDS: sulfaSALAzine 500 MG TAB PO SCH ×4 (05:04→21:44)
[2017-02-24] MEDS ORDERED: KETOROLAC 30 MG/ML 1 ML VIAL IM PRN (05:23)
[2017-02-24] MEDS ORDERED: diphenhydrAMINE 50 MG/ML 1 ML VIAL IVP PRN (05:24)
[2017-02-24] MEDS: METOPROLOL TARTRATE 50 MG TAB PO SCH ×2 (07:30→21:44)
[2017-02-24] MEDS: ceFAZolin 2 GM in SODIUM CHLORIDE 0.9% 100 ML IVPB SCH ×2 (07:30→17:16)
[2017-02-24] MEDS: oxyCODONE-APAP 5-325MG 1 EACH TAB PO PRN ×2 (07:34→21:44)
[2017-02-24 07:43] LABS: Anion Gap 10 mmol/L; Blood Urea Nitrogen 27 mg/dL (7-17); Calcium 8.4 mg/dL (8.4-10.2); Carbon Dioxide 26 mmol/L (22-30); Chloride 104 mmol/L (98-107); Glucose 89 mg/dL (74-99); Non-African American GFR(MDRD) >60 (>60 ml/min/1.73 sqM); Potassium 4.1 mmol/L (3.5-5.1); Sodium 140 mmol/L (137-145)
[2017-02-24 07:54] LABS: Anisocytosis Slight; Basophils # (A) 0.1 k/uL (0-0.2); Basophils % (A) 1 %; CH 28.7; CHCM 29.9; Eosinophils # (A) 0.4 k/uL (0-0.7); Eosinophils % (A) 4 %; HCT 27.5 % (34.0-46.0); HDW 2.77; HGB 8.3 gm/dL (11.4-16.0); Hypochromasia Moderate; Luc # (Auto) 0.25; Luc % (Auto) 2; Lymphocytes # (A) 3.9 k/uL (1.0-4.8); Lymphocytes % (A) 36 %; MCH 29.1 pg (25.0-35.0); MCHC 30.1 g/dL (31.0-37.0); MCV 96.6 fL (80.0-100.0); Macrocytosis Slight; Mean Platelet Volume 7.5; Monocytes # (A) 0.6 k/uL (0-1.0); Monocytes % (A) 6 %; Neutrophils # (A) 5.6 k/uL (1.3-7.7); Neutrophils % (A) 52 %; RBC 2.85 m/uL (3.80-5.40); RDW 16.8 % (11.5-15.5); WBC 10.8 k/uL (3.8-10.6); WBC (Perox) 11.26
[2017-02-24] MEDS ORDERED: METOPROLOL TARTRATE 25 MG TAB PO STA (09:46)
--- NOTE | 2017-02-24 10:22 | ECHOF ---
Referral Reason:ATRIAL FIBRILLATION MEASUREMENTS -------- HEIGHT: 160.0 cm WEIGHT: 108.9 kg BP: 122/77 RVIDd: 2.7 cm (< 3.3) IVSd: 1.3 cm (0.6 - 1.1) LVIDd: 3.4 cm (3.9 - 5.3) LVPWd: 1.3 cm (0.6 - 1.1) IVSs: 1.8 cm LVIDs: 2.6 cm LVPWs: 1.8 cm LA Diam: 2.8 cm (2.7 - 3.8) Ao Diam: 2.4 cm (2.0 - 3.7) AV Cusp: 1.7 cm (1.5 - 2.6) LA Diam: 2.9 cm (2.7 - 3.8) MV EXCURSION: 15.618 mm (> 18.000) MV EF SLOPE: 90 mm/s (70 - 150) EPSS: 0.3 cm RAP: 5.00 mmHg RVSP: 23.73 mmHg FINDINGS -------- Atrial fibrillation. This was a technically difficult study with suboptimal views. There is mild concentric left ventricular hypertrophy. Overall left ventricular systolic function is low-normal with, an EF between 50 - 55 %. The right ventricle is normal in size. The left atrial size is normal. The right atrium is normal in size. 1.5mg of Definity was utilized for enhancement of images Trace to mild aortic regurgitation. Mild mitral annular calcification present. There is trace mitral regurgitation. Mild tricuspid regurgitation present. The right ventricular systolic pressure, as measured by Doppler, is 23.73mmHg. The pulmonic valve was not well visualized. The aortic root size is normal. Normal inferior vena cava with normal inspiratory collapse consistent with estimated right atrial pressure of 5 mmHg. Echo free space may represent effusion or a pericardial fat pad. CONCLUSIONS -------- 1. Atrial fibrillation. 2. Mild mitral annular calcification present. 3. There is trace mitral regurgitation. 4. Mild tricuspid regurgitation present. 5. The right ventricular systolic pressure, as measured by Doppler, is 23.73mmHg. 6. The pulmonic valve was not well visualized. 7. The aortic root size is normal. 8. Normal inferior vena cava with normal inspiratory collapse consistent with estimated right atrial pressure of 5 mmHg. 9. Echo free space may represent effusion or a pericardial fat pad. 10. This was a technically difficult study with suboptimal views. 11. There is mild concentric left ventricular hypertrophy. 12. Overall left ventricular systolic function is low-normal with, an EF between 50 - 55 %. 13. The right ventricle is normal in size. 14. The left atrial size is normal. 15. The right atrium is normal in size. 16. 1.5mg of Definity was utilized for enhancement of images 17. Trace to mild aortic regurgitation. WET FINISHER: Dexter Guy RDCS
--- NOTE | 2017-02-24 12:37 | PN ---
This patient came with a hematoma over the left knee. The patient is undergoing incision and drainage. Patient's heart rate now is 100 to 120. She is asymptomatic otherwise. First and second heart sounds are normal. Lungs are clear to auscultation and percussion. Patient was taking Lopressor ( ) mg b.i.d. at home. We will increase the dose of Lopressor. Continue otherwise current medications.
[2017-02-24] MEDS: AMITRIPTYLINE HCL 10 MG TAB PO SCH (15:23)
[2017-02-24] MEDS: NYSTATIN 100,000 UNIT/GM POWD 15 GM TOPICAL SCH ×3 (15:23→21:46)
[2017-02-24] MEDS: CYCLOBENZAPRINE 10 MG TAB PO SCH ×3 (15:23→21:44)
[2017-02-24] MEDS: DIAZEPAM 2 MG TAB PO SCH (15:23)
[2017-02-24] MEDS: DAPSONE 25 MG TAB PO SCH (15:23)
--- NOTE | 2017-02-24 17:52 | P.PN ---
Subjective Principal diagnosis: Left knee hematoma/effusion Patient is seen at bedside this am. She continues to have pain at the left knee as expected. She doesn't feel it is worse. She has right knee pain as well which she states has bothered her since her fall. Xrays of the right knee taken on day of admission through ED shows advanced DJD/OA particularly of the patellofemoral compartment. No acute appearing fractures or dislocations. She has no new complaints. She denies new numbness or tingling. She denies calf pain , fever, chills, chest pain, or SOB. Objective - Vital Signs Vital signs: Vital Signs Temp 98.3 F 02/24/17 14:41 Pulse 99 02/24/17 16:00 Resp 17 02/24/17 14:41 BP 115/75 02/24/17 14:41 Pulse Ox 92 L 02/24/17 14:41 Intake & Output 02/23/17 02/24/17 02/24/17 18:59 06:59 18:59 Intake Total 1220 480 260 Balance 1220 480 260 Intake: IV 240 240 260 Sodium Chloride 0.9% 1, 140 240 160 000 ml @ 20 mls/hr IV . Q24H BING Rx#:[id number] ceFAZolin 2 gm In Sodium 100 100 Chloride 0.9% 100 ml @ 100 mls/hr IVPB Q12HR BING Rx#:[id number] Oral 980 240 Other: Voiding Method Diaper Incontinent # Voids 2 1 - Exam Global echymosis and edema of the left knee. It is not put through range of motion as minimal movement ellicits knee pain. Blisters are benign and noninfectious appearing. There is no erythema and the joint is not hot to touch. Calf is soft. Motor intact at the ankle and foot. Sensation to light touch intact throughout left lower extremity. Good perfusion distally. The foot and toes are warm to touch. Right knee is benign with mild effusion present. No erythema or echymosis. Tender at the lateral joint line. Minimal flexion reproduces knee pain. Full extension present. Calf is soft and nontender. Dorsalis pedis pulses 2+ and less than 2 sec cap refill present. Motor intact at the ankle and foot. Sensation to light touch intact throughout left lower extremity. - Constitutional General appearance: Present: no acute distress - Psychiatric Psychiatric: Present: A&O x's 3, appropriate affect, intact judgment & insight - Labs CBC & Chem 7: 02/24/17 06:52 02/24/17 06:52 Labs: Abnormal Lab Results - Last 24 Hours (Table) 02/24/17 02/24/17 Range/Units 06:52 06:52 WBC 10.8 H (3.8-10.6) k/uL RBC 2.85 L (3.80-5.40) m/uL Hgb 8.3 L (11.4-16.0) gm/dL Hct 27.5 L (34.0-46.0) % MCHC 30.1 L (31.0-37.0) g/dL RDW 16.8 H (11.5-15.5) % BUN 27 H (7-17) mg/dL Assessment and Plan (1) Hematoma of left lower extremity Narrative/Plan: After discussion with Dr. Dumont and Dr. Monsalve, it has been decided to take her to surgery today for an I and D/hematoma evacuation. She requires anticoagualtion therapy due to an arrythmia and needs to resume ESTHELA. Vascular and internal medicine are following. She will utilize a knee immobilizer and walker for ambulation post op. Status: Acute Time with Patient: Less than 30
--- NOTE | 2017-02-24 17:58 | P.PN ---
Subjective Date of service 02/23/2017. Progress note being dictated for Dr. Means. Interval history: This a 66-year-old female admitted status post fall with left knee hematoma, joint effusion and multiple other medical issues. Evaluated by pulmonary, with conservative management at this time. Complains of left knee pain. Echo suboptimal study, reporting atrial fibrillation, EF 50-55%. Denies chest pain, palpitations or increasing shortness of breath. Hemoglobin 8, afebrile. Objective - Vital Signs Vital signs: Vital Signs Temp 98.0 F 02/23/17 20:44 Pulse 93 02/23/17 20:44 Resp 20 02/23/17 20:44 BP 118/75 02/23/17 20:51 Pulse Ox 94 L 02/23/17 20:44 Intake & Output 02/23/17 02/23/17 02/24/17 06:59 18:59 06:59 Intake Total 1220 240 Balance 1220 240 Intake: IV 240 Sodium Chloride 0.9% 1, 140 000 ml @ 20 mls/hr IV . Q24H BING Rx#:[id number] ceFAZolin 2 gm In Sodium 100 Chloride 0.9% 100 ml @ 100 mls/hr IVPB Q12HR BING Rx#:[id number] Oral 980 240 Other: Voiding Method Diaper Diaper # Voids 2 2 - Exam PHYSICAL EXAM: VITAL SIGNS: As above GENERAL: [Sitting up in bed, no acute distress] HEENT: [Pupils equal conjunctiva normal.] NECK: [Supple, no JVD] RESPIRATORY EFFORT:[Normal] LUNGS: [Bases diminished, no wheezes rhonchi or crackles] CARDIOVASCULAR[irregular, mild tachycardia, no murmurs rubs or gallops, positive edema] GI: [Abdomen soft, nontender, positive bowel sounds.] PSYCH: [Alert and oriented -3, mood and affect normal.] SKIN: [Left lower extremity with Josef wrap been dry and intact, positive PT and DT pulses] NEURO: No focal deficits - Labs CBC & Chem 7: 02/24/17 06:52 02/24/17 06:52 Labs: Abnormal Lab Results - Last 24 Hours (Table) 02/23/17 02/23/17 Range/Units 07:28 07:28 WBC 11.5 H (3.8-10.6) k/uL RBC 2.73 L (3.80-5.40) m/uL Hgb 8.0 L (11.4-16.0) gm/dL Hct 25.8 L (34.0-46.0) % MCHC 30.9 L (31.0-37.0) g/dL RDW 16.4 H (11.5-15.5) % BUN 24 H (7-17) mg/dL Glucose 106 H (74-99) mg/dL Assessment and Plan Plan: 1. [Status post fall, left knee hematoma,Possible hemarthrosis of the left knee] .]. 2. [Anemia, normocytic of chronic disease possibly]. 3. Anticoagulated on Xarelto, in a patient with history of CVA, TIA, chronic A. fib, ablation]. 4. Proximal intermittent A. fib 5. [Hyperlipidemia]. 6. [Hypertriglyceridemia]. 7. [Essential hypertension]. 8. Rheumatoid arthritis 9. Fibromyalgia 10. Degenerative joint disease Plan continue on current medication regime ,monitoring and symptomatic treatment. Maintain elevation of the affected extremity. Xarelto to be resumed and aspirin discontinued as per cardiology.
[2017-02-24] MEDS ORDERED: IV FLUID CONTINUATION 800 ML IV ONE ×2 (18:08)
--- NOTE | 2017-02-24 18:13 | P.PN ---
Subjective Date of service 02/24/2017. Progress note being dictated for Dr. Means. Interval history: This a 66-year-old female admitted status post fall with left knee hematoma, joint effusion and multiple other medical issues. Persistent left knee pain. Orthopedics discussing I&D for today , Plavix was held last night . Tachycardic, asymptomatic beta blake dose increased as per cardiology. and Denies chest pain, palpitations or increasing shortness of breath. Hemoglobin 8, afebrile. Objective - Vital Signs Vital signs: Vital Signs Temp 98.3 F 02/24/17 14:41 Pulse 99 02/24/17 16:00 Resp 17 02/24/17 14:41 BP 115/75 02/24/17 14:41 Pulse Ox 92 L 02/24/17 14:41 Intake & Output 02/23/17 02/24/17 02/24/17 18:59 06:59 18:59 Intake Total 1220 480 260 Balance 1220 480 260 Intake: IV 240 240 260 Sodium Chloride 0.9% 1, 140 240 160 000 ml @ 20 mls/hr IV . Q24H BING Rx#:[id number] ceFAZolin 2 gm In Sodium 100 100 Chloride 0.9% 100 ml @ 100 mls/hr IVPB Q12HR BING Rx#:[id number] Oral 980 240 Other: Voiding Method Diaper Incontinent # Voids 2 1 - Exam PHYSICAL EXAM: VITAL SIGNS: As above GENERAL: [Sitting up in bed, no acute distress,] HEENT: [Pupils equal conjunctiva normal.] NECK: [Supple, no JVD] RESPIRATORY EFFORT:[Normal] LUNGS: [Bases diminished, no wheezes rhonchi or crackles] CARDIOVASCULAR[irregular, mild tachycardia, no murmurs rubs or gallops, positive edema] GI: [Abdomen soft, nontender, positive bowel sounds.] PSYCH: [Alert and oriented -3, mood and affect normal.] SKIN: [Left lower extremity elevated with Josef wrap dry and intact, positive PT and DT pulses] NEURO: No focal deficits - Labs CBC & Chem 7: 02/24/17 06:52 02/24/17 06:52 Labs: Abnormal Lab Results - Last 24 Hours (Table) 02/24/17 02/24/17 Range/Units 06:52 06:52 WBC 10.8 H (3.8-10.6) k/uL RBC 2.85 L (3.80-5.40) m/uL Hgb 8.3 L (11.4-16.0) gm/dL Hct 27.5 L (34.0-46.0) % MCHC 30.1 L (31.0-37.0) g/dL RDW 16.8 H (11.5-15.5) % BUN 27 H (7-17) mg/dL Assessment and Plan Plan: 1. [Status post fall, left knee hematoma,Possible hemarthrosis of the left knee] .]. 2. [Anemia, normocytic of chronic disease possibly]. 3. Anticoagulated on Xarelto, in a patient with history of CVA, TIA, chronic A. fib, ablation]. 4. Proximal intermittent A. fib 5. [Hyperlipidemia]. 6. [Hypertriglyceridemia]. 7. [Essential hypertension]. 8. Rheumatoid arthritis 9. Fibromyalgia 10. Degenerative joint disease Plan continue on current medication regime ,monitoring and symptomatic treatment. Maintain elevation of the affected extremity. Potential I&D pending as mentioned above per orthopedics. Close monitoring of CBC with repeat labs ordered for a.m. Further recommendations to follow. The impression and plan of care has been dictated as directed. : I performed a H&P examination of this patient and discussed the same with the dictator. I agree with the dictator's note. Any additional findings/opinions/ etc. will be noted.
[2017-02-24] MEDS: ATORVASTATIN 20 MG TAB PO SCH (21:44)
[2017-02-25] MEDS: DIAZEPAM 2 MG TAB PO SCH ×3 (05:12→20:08)
[2017-02-25] MEDS: SODIUM CHLORIDE 0.9% 1,000 ML IV SCH ×2 (05:12→21:12)
[2017-02-25] MEDS: sulfaSALAzine 500 MG TAB PO SCH ×4 (05:29→21:10)
[2017-02-25] MEDS: ceFAZolin 2 GM in SODIUM CHLORIDE 0.9% 100 ML IVPB SCH ×4 (05:50→21:11)
[2017-02-25 07:24] LABS: Anisocytosis Slight; Basophils # (A) 0.1 k/uL (0-0.2); Basophils % (A) 1 %; CH 28.9; CHCM 30.7; Eosinophils # (A) 0.2 k/uL (0-0.7); Eosinophils % (A) 2 %; HCT 26.5 % (34.0-46.0); HDW 2.83; HGB 8.3 gm/dL (11.4-16.0); Hypochromasia Slight; Luc % (Auto) 3; Lymphocytes # (A) 2.5 k/uL (1.0-4.8); Lymphocytes % (A) 27 %; MCH 29.6 pg (25.0-35.0); MCHC 31.1 g/dL (31.0-37.0); MCV 94.9 fL (80.0-100.0); Mean Platelet Volume 6.9; Monocytes # (A) 0.8 k/uL (0-1.0); Monocytes % (A) 8 %; Neutrophils # (A) 5.6 k/uL (1.3-7.7); Neutrophils % (A) 60 %; RBC 2.79 m/uL (3.80-5.40); RDW 16.4 % (11.5-15.5); WBC 9.4 k/uL (3.8-10.6); WBC (Perox) 10.26
[2017-02-25 07:36] LABS: Anion Gap 8 mmol/L; Blood Urea Nitrogen 17 mg/dL (7-17); Calcium 8.3 mg/dL (8.4-10.2); Carbon Dioxide 25 mmol/L (22-30); Chloride 105 mmol/L (98-107); Glucose 102 mg/dL (74-99); Non-African American GFR(MDRD) >60 (>60 ml/min/1.73 sqM); Potassium 4.4 mmol/L (3.5-5.1); Sodium 138 mmol/L (137-145)
[2017-02-25] MEDS: oxyCODONE-APAP 5-325MG 1 EACH TAB PO PRN (08:19)
[2017-02-25] MEDS: METOPROLOL TARTRATE 50 MG TAB PO SCH ×2 (08:20→20:08)
[2017-02-25] MEDS: DAPSONE 25 MG TAB PO SCH (08:20)
[2017-02-25] MEDS: NYSTATIN 100,000 UNIT/GM POWD 15 GM TOPICAL SCH ×3 (08:20→21:11)
[2017-02-25] MEDS: CYCLOBENZAPRINE 10 MG TAB PO SCH ×3 (08:21→21:10)
[2017-02-25] MEDS: AMITRIPTYLINE HCL 10 MG TAB PO SCH (08:21)
--- NOTE | 2017-02-25 11:21 | P.PN ---
Subjective Principal diagnosis: Left knee hematoma/effusion Patient is seen at bedside this am. She is postop day #1 from hematoma evacuation at the left knee. She feels the pain in her left leg and knee is improved versus preop. She has no new complaints. She continues to have right knee pain as previously discussed and addressed. She'll follow-up as an outpatient for further evaluation and treatment regarding her right knee. She denies new numbness or tingling. She denies calf pain, fever, chills, chest pain , or SOB. Objective - Vital Signs Vital signs: Vital Signs Temp 97.7 F 02/25/17 08:00 Pulse 75 02/25/17 08:00 Resp 16 02/25/17 08:00 BP 128/60 02/25/17 08:00 Pulse Ox 89 L 02/25/17 08:00 Intake & Output 02/24/17 02/25/17 02/25/17 18:59 06:59 18:59 Intake Total 310 340 Output Total 25 670 Balance 285 -330 Intake: IV 310 240 Sodium Chloride 0.9% 1, 160 240 000 ml @ 20 mls/hr IV . Q24H BING Rx#:[id number] ceFAZolin 2 gm In Sodium 100 Chloride 0.9% 100 ml @ 100 mls/hr IVPB Q12HR BING Rx#:[id number] Oral 100 Output: Drainage 20 Left Knee 20 Urine 650 Uretheral (Winn) 650 Estimated Blood Loss 25 Other: Voiding Method Incontinent Indwelling Catheter Indwelling Catheter - Exam Inspection reveals benign surgical wound with nylon sutures in place. There is a Hemovac drain in place as well. There has been minimal output. There is no active bleeding, drainage or dehiscence. There is resolving ecchymoses about the left knee. Calf is soft and nontender. Sensation light touch is intact throughout the left lower extremity. Active motor at the left ankle, foot and toes. 1+ dorsalis pedis pulse and less than 2 second cap refill present. - Constitutional General appearance: Present: no acute distress - Psychiatric Psychiatric: Present: A&O x's 3, appropriate affect, intact judgment & insight - Labs CBC & Chem 7: 02/25/17 06:52 02/25/17 06:47 Labs: Abnormal Lab Results - Last 24 Hours (Table) 02/25/17 02/25/17 Range/Units 06:47 06:52 RBC 2.79 L (3.80-5.40) m/uL Hgb 8.3 L (11.4-16.0) gm/dL Hct 26.5 L (34.0-46.0) % RDW 16.4 H (11.5-15.5) % Glucose 102 H (74-99) mg/dL Calcium 8.3 L (8.4-10.2) mg/dL Assessment and Plan (1) Hematoma of left lower extremity Narrative/Plan: She is postop day #1 from hematoma evacuation. She's doing well. Her pain is improved. She'll continue with wound care and pain management. Drain has been discontinued without complication. She is to maintain bandage and knee immobilizer while ambulating with walker for assistance. She'll resume her anticoagulation therapy per cardiology. She'll follow-up as an outpatient for further evaluation and management. She can be discharged to rehab from an orthopedic standpoint and when okay with her medical team. Status: Acute Time with Patient: Less than 30
--- NOTE | 2017-02-25 12:19 | PN ---
This patient underwent I&D of the hematoma over the left knee. She is doing well. Vital signs remain stable. Patient has evidence of paroxysmal atrial fibrillation and she has now converted to the normal sinus rhythm at the time of conversant about 2.8 to 3 seconds pause was noted without associated with any symptoms. Discuss with the PA of Dr. Dumont and we will start the patient on Xarelto 20 mg daily. Continue Lopressor 100 mg b.i.d. and the patient will follow up with Dr. Stokes as an outpatient.
--- NOTE | 2017-02-25 13:59 | OP ---
DATE OF SERVICE: 02/24/2017 SURGEON: BRITTANY SHELTON MD CARBIDER: ARISTIDES PRIEST PREOPERATIVE DIAGNOSIS: Left knee prepatellar hematoma. POSTOPERATIVE DIAGNOSIS: Left knee prepatellar hematoma. PROCEDURE: Left knee prepatellar hematoma evacuation. ANESTHESIA: General Endotracheal. ESTIMATED BLOOD LOSS: 25 mL. TOURNIQUET: None. DRAINS: One deep drain was placed. SPECIMENS REMOVED: COMPLICATIONS: None apparent. DISPOSITION: Post-anesthesia care unit. OPERATIVE FINDINGS: INDICATIONS: Ciarra is a very pleasant 66-year-old female who fell injuring her left knee last weekend. She has been on Xarelto for irregular heartbeat and as well as TIA. We have been monitoring her as she has come off the Xarelto. She did develop some serous clear blisters over the anterior aspect of the knee. She has been also worked up by Vascular Surgery as well. This is a subcutaneous hematoma in the prepatellar aspect of her knee. Everything has seemed to stabilize; however, she still has quite a large hematoma in this area. A decision was made after conferring with Vascular Surgery to go forward with an evacuation of the hematoma through a limited small incision as possible. The risks of the procedure were discussed with her in detail. These risks include, but are not limited to risk of infection, nerve damage, bleeding, pain, risk of reaccumulation of a hematoma and small risk of deep vein thrombosis, which could lead to fatal pulmonary embolism. Patient understood these risks. All of her questions were answered to her satisfaction. Appropriate informed consent was obtained. DESCRIPTION OF THE PROCEDURE: Patient was identified in the preoperative holding area. The surgical site was marked by both the patient and myself. She was given 2 gm of Ancef IV for prophylactic purposes. She was then transferred to the operative suite where she was placed supine on the operating room table. General anesthetic was then administered and dosed per the Anesthesia Department without apparent complication. Patient's left lower extremity was then prepped and draped in the usual sterile fashion. Standard surgical pause was then undertaken to ensure that were operating on correct site and that appropriate preoperative antibiotics had been given. All staff in the room were in agreement and we proceeded. She had a large hematoma. Planned to make a 2.5 to 3 cm incision extending from the proximal pole of the patella proximally in line with the quadriceps tendon. This was then made with a 10 blade scalpel, ( ) carried down sharply to the subcutaneous area. Hemostasis was achieved with electrocautery. I was then able to access the prepatellar bursal area through this incision. A large amount of hematoma was evacuated. It did utilize a small curette to loosen up the hematoma and continue with the evacuation. The area was also thoroughly irrigated with sterile saline solution with antibiotic added via pulse lavage. I utilized 3 L of antibiotic-impregnated solution. I then placed a deep drain and brought it out superolateral to the incision. The incision was then closed with 2-0 nylon interrupted suture. Sterile compressive dressing was then applied. All sponge and needle counts were deemed correct prior to closure. The patient tolerated the procedure well without apparent complication. She was transferred to the recovery room in stable condition.
--- NOTE | 2017-02-25 16:09 | DS ---
PROGRESS NOTE AND DISCHARGE SUMMARY DATE OF ADMISSION: 02/21/2017 DATE OF DISCHARGE: Patient is a 66-year-old admitted after a fall and patient was found to have left knee hematoma. Patient was surgically drained. Patient was on antibiotics for suspicion of infected hematoma. Patient will be continued on 5 more days of antibiotic. Patient will be discharged today to subacute rehabilitation. REVIEW OF SYSTEMS: CARDIOVASCULAR: No chest pain, no orthopnea, no PND, no palpitations. PULMONARY: Denied any shortness of breath. No cough or hemoptysis. GASTROINTESTINAL: No diarrhea, nausea or vomiting. No abdominal pain. Normoactive bowel sounds. NEUROLOGIC: No headaches, no weakness, no numbness. Medications were reviewed. There is no evidence of significant infection post surgery, but we cannot completely rule it out. Because of that reason, patient will be discharged on 5 more days of Keflex, with which leukocytosis did improve. Patient was seen and examined on the day of discharge. Vitals are stable. GENERAL: The patient is alert and oriented x3, not in any acute distress. Well developed, well nourished. HEENT: Pupils are round and equally reacting to light. EOMI. No scleral icterus. No conjunctival pallor. Normocephalic, atraumatic. No pharyngeal erythema. No thyromegaly. CARDIOVASCULAR: S1 and S2 present. No murmurs, rubs, or gallops. PULMONARY: Chest is clear to auscultation, no wheezing or crackles. ABDOMEN: Soft, nontender, nondistended, normoactive bowel sounds. No palpable organomegaly. MUSCULOSKELETAL: No joint swelling or deformity. LEFT KNEE: Defer to Orthopedic Surgery. NEUROLOGICAL: Gross neurological examination did not reveal any focal deficits. SKIN: No rashes. FINAL DIAGNOSES: 1. Status post fall, left knee hematoma and hemarthrosis. Patient was on Xarelto. Patient is started back on Xarelto today. 2. Normocytic anemia; anemia of chronic disease. 3. Atrial fibrillation, at present rate-controlled. She was treated for atrial fibrillation with RVR. Patient is anticoagulated on Xarelto and anticoagulation is being reinitiated today. 4. Hyperlipidemia. 5. Essential hypertension. 6. Rheumatoid arthritis. 7. Fibromyalgia. 8. Degenerative joint disease. Patient will be discharged today in stable medical condition to subacute rehab. Activity as tolerated. Cardiac diet. Please refer to my depart summary for the list of discharge medications. Patient will follow with Dr. Kaia Adames once she is discharged from subacute rehab. Until then, patient will follow with Dr. Schreiber in [facility]. Spent greater than 35 minutes in total discharge process. This dictation is both progress note and discharge summary.
[2017-02-25] MEDS ORDERED: RIVAROXABAN 10 MG TAB PO SCH (17:30)
[2017-02-25 20:06] VITALS: RESP 16
[2017-02-25] MEDS: ATORVASTATIN 20 MG TAB PO SCH (20:08)
[2017-02-26 03:25] VITALS: TEMP 98.5
[2017-02-26] MEDS: sulfaSALAzine 500 MG TAB PO SCH ×2 (05:08→10:57)
[2017-02-26] MEDS: oxyCODONE-APAP 5-325MG 1 EACH TAB PO PRN (05:09)
[2017-02-26 07:05] LABS: Anisocytosis Slight; Basophils # (A) 0.1 k/uL (0-0.2); Basophils % (A) 1 %; CH 28.4; CHCM 30.3; Eosinophils # (A) 0.3 k/uL (0-0.7); Eosinophils % (A) 3 %; HCT 24.7 % (34.0-46.0); HDW 2.89; HGB 7.7 gm/dL (11.4-16.0); Hypochromasia Moderate; Luc # (Auto) 0.23; Luc % (Auto) 2; Lymphocytes # (A) 2.4 k/uL (1.0-4.8); Lymphocytes % (A) 22 %; MCH 29.4 pg (25.0-35.0); MCHC 31.1 g/dL (31.0-37.0); MCV 94.6 fL (80.0-100.0); Mean Platelet Volume 7.1; Monocytes # (A) 0.8 k/uL (0-1.0); Monocytes % (A) 7 %; Neutrophils # (A) 6.9 k/uL (1.3-7.7); Neutrophils % (A) 65 %; RBC 2.61 m/uL (3.80-5.40); RDW 16.2 % (11.5-15.5); WBC 10.6 k/uL (3.8-10.6); WBC (Perox) 11.04
[2017-02-26 07:23] LABS: Anion Gap 7 mmol/L; Blood Urea Nitrogen 15 mg/dL (7-17); Calcium 8.5 mg/dL (8.4-10.2); Carbon Dioxide 28 mmol/L (22-30); Chloride 103 mmol/L (98-107); Glucose 109 mg/dL (74-99); Non-African American GFR(MDRD) >60 (>60 ml/min/1.73 sqM); Potassium 4.2 mmol/L (3.5-5.1); Sodium 138 mmol/L (137-145)
[2017-02-26] MEDS: CYCLOBENZAPRINE 10 MG TAB PO SCH (08:49)
[2017-02-26] MEDS: ceFAZolin 2 GM in SODIUM CHLORIDE 0.9% 100 ML IVPB SCH (08:49)
[2017-02-26] MEDS: AMITRIPTYLINE HCL 10 MG TAB PO SCH (08:50)
[2017-02-26] MEDS: DAPSONE 25 MG TAB PO SCH (08:51)
[2017-02-26] MEDS: NYSTATIN 100,000 UNIT/GM POWD 15 GM TOPICAL SCH (08:51)
[2017-02-26] MEDS: METOPROLOL TARTRATE 50 MG TAB PO SCH (08:51)
[2017-02-26] MEDS: DIAZEPAM 2 MG TAB PO SCH (08:53)
[2017-02-26 09:48] VITALS: BP 110/56; PULSE 77
--- NOTE | 2017-02-26 10:24 | P.PN ---
Progress Note - Text Patient is a pleasant 66-year-old female who is seen and examined at the bedside for follow-up evaluation after undergoing incision and drainage of the left knee for left knee effusion/hematoma. Patient states she has been feeling well following the procedure. She continues to be a 2 person lift but would prefer to be discharged home that she is able to do so. Admittedly, she is not very mobile and has difficulty with mobility and ambulation. She continues to keep her knee immobilizer intact over the left knee. She is eating and voiding without significant difficulty. Pain is been well-controlled. He is no new complaints this morning. Physical Exam: Patient is awake, alert, and oriented 3 Vital signs stable Good chest excursion with deep inspiration and expiration Abdomen soft nontender No signs or symptoms of DVT; no calf pain Extensor hallucis longus, plantarflexion, and dorsiflexion positive sustained bilateral lower extremities Knee immobilizer intact left lower extremity Dressing about the left knee is clean, dry, and intact Winn catheter remains intact Assessment: Left knee hematoma/effusion status post incision and drainage Plan: 1. Patient may continue to weight-bear as tolerated on the left knee with her knee immobilizer intact; she is encouraged to ambulate with assistance of a wheeled walker; she is encouraged to continue maintaining her left knee immobilizer and keep the dressing clean, dry, and intact; may elevate the left lower extremity and apply ice for comfort as needed 2. From an orthopedic standpoint, patient is clear for discharge; patient is currently planned for discharge to [facility] rehabilitation [facility] today, 02/26/2017 3. Medicine to continue following the patient; discharge order has already been placed by medicine 4. Patient may restart into anticoagulation therapy per cardiology 5. We will also plan to discontinue her Winn catheter prior to discharge to rehabilitation facility 6. Continue pain control; prescription has been written for Percocet 5 mg/325 mg 1 tab every 4 hours as needed for pain dispense 30 7. Fine discharge, patient may follow-up with Dr. Kishore Dumont at [facility] in 1 week for further evaluation
--- NOTE | 2017-02-27 12:07 | DS ---
DATE OF ADMISSION: 02/21/2017 DATE OF DISCHARGE: 02/26/2017 Patient was discharged from my service yesterday, but patient ended up staying here, not sure why but patient will be discharged to subacute rehabilitation today. Please refer to my depart summary for further details from yesterday noted. No significant change in physical exam. Patient was seen and examined today. Vital signs are stable. Physical exam, no change compared to yesterday. Please consider my yesterday's discharge summary as progress note.
== END 2017-02-26 13:45 | DRG 502 ==
LOC: EC 22:14 → OBSVTOIN 02-21 00:48 → 3SUR 02-21 00:48
PROVIDERS: ADMIT Internal Medicine; ATTEND Internal Medicine
PROC: 0MCP0ZZ Extirpation of Matter from Left Knee Bursa and Ligament, Open Approach (ICD-10-PCS; principal; 2017-02-25)
DX: M25.062 Hemarthrosis, left knee (principal); I48.0 Paroxysmal atrial fibrillation; S80.02XA Contusion of left knee, initial encounter; I10 Essential (primary) hypertension; D63.8 Anemia in other chronic diseases classified elsewhere; E78.1 Pure hyperglyceridemia; E78.5 Hyperlipidemia, unspecified; M06.9 Rheumatoid arthritis, unspecified; M19.90 Unspecified osteoarthritis, unspecified site; M79.7 Fibromyalgia; M81.0 Age-related osteoporosis without current pathological fracture; W19.XXXA Unspecified fall, initial encounter; Z79.01 Long term (current) use of anticoagulants; Z79.899 Other long term (current) drug therapy; Z81.8 Family history of other mental and behavioral disorders; Z82.49 Family history of ischemic heart disease and other diseases of the circulatory system; Z86.73 Personal history of transient ischemic attack (TIA), and cerebral infarction without residual deficits; Z79.82 Long term (current) use of aspirin; Z91.041 Radiographic dye allergy status; Z88.5 Allergy status to narcotic agent; Z91.013 Allergy to seafood
CPT/HCPCS: 36415; 80048; 80053; 85025; 85610; 93005; 93306; 99283; 99285

== ENCOUNTER 2017-07-27 12:25 | Inpatient (IN) | payer MEDICARE, BC ==
[2017-07-27] MEDS ORDERED: SODIUM CHLORIDE 0.9% 500 ML IV STA (12:40)
[2017-07-27] MEDS ORDERED: SODIUM CHLORIDE 0.9% 1,000 ML IV STA (12:40)
--- NOTE | 2017-07-27 13:02 | ED ---
General Adult HPI - General Chief complaint: Upper Respiratory Infection Stated complaint: Difficulty Breathing Time Seen by Provider: 07/27/17 12:39 Source: patient, family, RN notes reviewed, old records reviewed Mode of arrival: wheelchair Limitations: no limitations - History of Present Illness Initial comments: This is a 66-year-old female here for evaluation. Patient requested for evaluation regarding cough congestion shortness of breath. Patient states her heart racing history of atrial fibrillation. Denies fever but states currently but that she had a fever last night which she took Tylenol for and that helps. Cough has been persistent with increased exertional shortness of breath. Patient denies chest pain. No travel history no sick contacts. No recent hospitalizations - Related Data Home Medications Medication Instructions Recorded Confirmed Dapsone 100 mg PO DAILY 06/20/14 07/27/17 Metoprolol Tartrate [Lopressor] 100 mg PO BID 06/20/14 07/27/17 sulfaSALAzine [Azulfidine] 500 mg PO Q6H 06/21/14 07/27/17 Rivaroxaban [Xarelto] 20 mg PO DAILY 02/26/16 07/27/17 Amitriptyline HCl [Elavil] 10 mg PO HS 02/21/17 07/27/17 Chlorzoxazone [Parafon Forte Dsc] 500 mg PO TID 02/21/17 07/27/17 Albuterol Nebulized [Ventolin 2.5 mg INHALATION RT-Q8H PRN 07/27/17 07/27/17 Nebulized] Diazepam [Valium] 10 mg PO DAILY 07/27/17 07/27/17 Previous Rx's Medication Instructions Recorded Aspirin EC [Ecotrin Low Dose] 81 mg PO DAILY #30 tablet. 02/28/16 Allergies Allergy/AdvReac Type Severity Reaction Status Date / Time banana Allergy Itching Verified 07/27/17 13:16 codeine Allergy Nausea & Verified 07/27/17 13:16 Vomiting honey Allergy Swelling Verified 07/27/17 13:16 Iodinated Contrast- Oral and Allergy Swelling Verified 07/27/17 13:16 IV Dye [Iodinated Contrast Media - IV Dye] iodine Allergy AVOIDS Verified 07/27/17 13:16 SHELL FISH ALLERGY morphine Allergy Nausea & Verified 07/27/17 13:16 Vomiting piroxicam [From Feldene] Allergy Swelling Verified 07/27/17 13:16 shellfish derived Allergy Swelling Verified 07/27/17 13:16 venom-honey bee Allergy Anaphylaxis Verified 07/27/17 13:16 [bee venom (honey bee)] Review of Systems ROS Statement: Those systems with pertinent positive or pertinent negative responses have been documented in the HPI. ROS Other: All systems not noted in ROS Statement are negative. Past Medical History Past Medical History: Atrial Fibrillation, CVA/TIA, Hypertension, Rheumatoid Arthritis (RA) Additional Past Medical History / Comment(s): fibromyalgia History of Any Multi-Drug Resistant Organisms: None Reported Past Surgical History: Appendectomy, Cardiac Ablation, Cholecystectomy, Orthopedic Surgery, Tubal Ligation Past Anesthesia/Blood Transfusion Reactions: No Reported Reaction Past Psychological History: Anxiety Smoking Status: Never smoker Past Alcohol Use History: None Reported Past Drug Use History: None Reported - Past Family History Mother Family Medical History: Congestive Heart Failure (CHF), CVA/TIA, Diabetes Mellitus, Hypertension Father Family Medical History: Myocardial Infarction (SD) Sister(s) Family Medical History: Dementia Additional Family Medical History / Comment(s): schizophrenia Brother(s) Family Medical History: AFIB, Coronary Artery Disease (CAD), Dementia Additional Family Medical History / Comment(s): alcoholism, x3 stents General Exam Limitations: no limitations General appearance: alert, in no apparent distress, anxious Head exam: Present: atraumatic, normocephalic, normal inspection Eye exam: Present: normal appearance, PERRL, EOMI. Absent: scleral icterus, conjunctival injection, periorbital swelling ENT exam: Present: normal exam, mucous membranes moist Neck exam: Present: normal inspection. Absent: tenderness, meningismus, lymphadenopathy Respiratory exam: Present: normal lung sounds bilaterally. Absent: respiratory distress, wheezes, rales, rhonchi, stridor Cardiovascular Exam: Present: tachycardia, irregular rhythm, normal heart sounds. Absent: systolic murmur, diastolic murmur, rubs, gallop, clicks GI/Abdominal exam: Present: soft, normal bowel sounds. Absent: distended, tenderness, guarding, rebound, rigid Extremities exam: Present: normal inspection, full ROM, normal capillary refill. Absent: tenderness, pedal edema, joint swelling, calf tenderness Back exam: Present: normal inspection Neurological exam: Present: alert, oriented X3, CN II-XII intact Psychiatric exam: Present: normal affect, normal mood Skin exam: Present: warm, dry, intact, normal color. Absent: rash Course Vital Signs 07/27/17 07/27/17 07/27/17 12:33 12:57 13:48 Temperature 98.9 F 99.3 F Pulse Rate 20 L 101 H 106 H Respiratory 125 H 18 Rate Blood Pressure 134/73 148/101 138/74 O2 Sat by Pulse 94 L 92 L 95 Oximetry 07/27/17 07/27/17 13:58 14:09 Temperature Pulse Rate 99 104 H Respiratory Rate Blood Pressure O2 Sat by Pulse Oximetry - Reevaluation(s) Reevaluation #1: 07/27/17 14:44 Patient feels much better with breathing treatment, cough suppression EKG Findings - EKG Comments: EKG Findings:: EKG shows A. fib with RVR rate 1:30, QRS 86, QTC 484 Medical Decision Making - Medical Decision Making 66. ER for evaluation, elevated heart rate A. fib with RVR, now controlled the patient is persistent or significant cough and shortness of breath. Patient be admitted for treatment of bronchitis, COPD, possible underlying pneumonia - Lab Data Result diagrams: 07/27/17 13:15 07/27/17 13:15 Lab Results 07/27/17 07/27/17 07/27/17 Range/Units 13:15 13:15 13:15 WBC 13.0 H (3.8-10.6) k/uL RBC 4.17 (3.80-5.40) m/uL Hgb 12.2 (11.4-16.0) gm/dL Hct 37.8 (34.0-46.0) % MCV 90.7 (80.0-100.0) fL MCH 29.3 (25.0-35.0) pg MCHC 32.3 (31.0-37.0) g/dL RDW 15.3 (11.5-15.5) % Plt Count 227 (150-450) k/uL Neutrophils % 71 % Lymphocytes % 18 % Monocytes % 6 % Eosinophils % 3 % Basophils % 0 % Neutrophils # 9.2 H (1.3-7.7) k/uL Lymphocytes # 2.4 (1.0-4.8) k/uL Monocytes # 0.8 (0-1.0) k/uL Eosinophils # 0.3 (0-0.7) k/uL Basophils # 0.0 (0-0.2) k/uL PT (9.0-12.0) sec INR (<1.2) APTT (22.0-30.0) sec Sodium 140 (137-145) mmol/L Potassium 4.5 (3.5-5.1) mmol/L Chloride 105 (98-107) mmol/L Carbon Dioxide 22 (22-30) mmol/L Anion Gap 13 mmol/L BUN 14 (7-17) mg/dL Creatinine 0.75 (0.52-1.04) mg/dL Est GFR (MDRD) Af Amer >60 (>60 ml/min/1.73 sqM) Est GFR (MDRD) Non-Af >60 (>60 ml/min/1.73 sqM) Glucose 111 H (74-99) mg/dL Calcium 8.9 (8.4-10.2) mg/dL Magnesium 1.9 (1.6-2.3) mg/dL Total Bilirubin 0.6 (0.2-1.3) mg/dL AST 20 (14-36) U/L ALT 25 (9-52) U/L Alkaline Phosphatase 99 (38-126) U/L Total Creatine Kinase 71 (30-135) U/L CK-MB (CK-2) 0.3 (0.0-2.4) ng/mL CK-MB (CK-2) Rel Index 0.4 Troponin I <0.012 (0.000-0.034) ng/mL NT-Pro-B Natriuret Pep pg/mL Total Protein 8.4 H (6.3-8.2) g/dL Albumin 4.3 (3.5-5.0) g/dL 07/27/17 07/27/17 Range/Units 13:15 13:15 WBC (3.8-10.6) k/uL RBC (3.80-5.40) m/uL Hgb (11.4-16.0) gm/dL Hct (34.0-46.0) % MCV (80.0-100.0) fL MCH (25.0-35.0) pg MCHC (31.0-37.0) g/dL RDW (11.5-15.5) % Plt Count (150-450) k/uL Neutrophils % % Lymphocytes % % Monocytes % % Eosinophils % % Basophils % % Neutrophils # (1.3-7.7) k/uL Lymphocytes # (1.0-4.8) k/uL Monocytes # (0-1.0) k/uL Eosinophils # (0-0.7) k/uL Basophils # (0-0.2) k/uL PT 13.5 H (9.0-12.0) sec INR 1.4 H (<1.2) APTT 35.6 H (22.0-30.0) sec Sodium (137-145) mmol/L Potassium (3.5-5.1) mmol/L Chloride (98-107) mmol/L Carbon Dioxide (22-30) mmol/L Anion Gap mmol/L BUN (7-17) mg/dL Creatinine (0.52-1.04) mg/dL Est GFR (MDRD) Af Amer (>60 ml/min/1.73 sqM) Est GFR (MDRD) Non-Af (>60 ml/min/1.73 sqM) Glucose (74-99) mg/dL Calcium (8.4-10.2) mg/dL Magnesium (1.6-2.3) mg/dL Total Bilirubin (0.2-1.3) mg/dL AST (14-36) U/L ALT (9-52) U/L Alkaline Phosphatase (38-126) U/L Total Creatine Kinase (30-135) U/L CK-MB (CK-2) (0.0-2.4) ng/mL CK-MB (CK-2) Rel Index Troponin I (0.000-0.034) ng/mL NT-Pro-B Natriuret Pep 2320 pg/mL Total Protein (6.3-8.2) g/dL Albumin (3.5-5.0) g/dL - Radiology Data Radiology results: report reviewed (Chest x-ray is negative), image reviewed Disposition Clinical Impression: Bronchitis, Upper respiratory infection, Atrial fibrillation with RVR Disposition: ADMITTED IP TO THIS [facility] Condition: Fair Referrals: Tri Adames III, MD [Primary Care Provider] - 1-2 days
[2017-07-27] MEDS ORDERED: DILTIAZEM 5 MG/ML 5 ML VIAL IVP STA (13:17)
[2017-07-27 13:25] LABS: Basophils % (A) 0 %; CH 29.3; CHCM 32.5; Eosinophils # (A) 0.3 k/uL (0-0.7); Eosinophils % (A) 3 %; HCT 37.8 % (34.0-46.0); HDW 2.73; HGB 12.2 gm/dL (11.4-16.0); Luc # (Auto) 0.25; Luc % (Auto) 2; Lymphocytes # (A) 2.4 k/uL (1.0-4.8); Lymphocytes % (A) 18 %; MCH 29.3 pg (25.0-35.0); MCHC 32.3 g/dL (31.0-37.0); MCV 90.7 fL (80.0-100.0); Mean Platelet Volume 8.1; Monocytes # (A) 0.8 k/uL (0-1.0); Monocytes % (A) 6 %; Neutrophils # (A) 9.2 k/uL (1.3-7.7); Neutrophils % (A) 71 %; RBC 4.17 m/uL (3.80-5.40); RDW 15.3 % (11.5-15.5)
[2017-07-27 13:41] LABS: INR 1.4 (<1.2); Partial Thromboplastin Time 35.6 sec (22.0-30.0); Prothrombin Time 13.5 sec (9.0-12.0)
[2017-07-27] MEDS ORDERED: IPRATROPIUM-ALBUTEROL 3 ML NEB INHALATION STA (13:46)
[2017-07-27] MEDS ORDERED: HYDROmorphone 1 MG/ML 1 ML SYRINGE IVP STA (13:46)
[2017-07-27] MEDS ORDERED: ACETAMINOPHEN IV (For NPO) 1,000 MG in EMPTY BAG 1 BAG IVPB STA (13:46)
[2017-07-27 13:51] LABS: ALT 25 U/L (9-52); AST 20 U/L (14-36); Alkaline Phosphatase 99 U/L (38-126); Anion Gap 13 mmol/L; Blood Urea Nitrogen 14 mg/dL (7-17); Calcium 8.9 mg/dL (8.4-10.2); Carbon Dioxide 22 mmol/L (22-30); Chloride 105 mmol/L (98-107); Glucose 111 mg/dL (74-99); Magnesium 1.9 mg/dL (1.6-2.3); Non-African American GFR(MDRD) >60 (>60 ml/min/1.73 sqM); Potassium 4.5 mmol/L (3.5-5.1); Sodium 140 mmol/L (137-145); Total Bilirubin 0.6 mg/dL (0.2-1.3); Total Protein 8.4 g/dL (6.3-8.2)
[2017-07-27 13:52] LABS: Creatine Kinase 71 U/L (30-135)
--- NOTE | 2017-07-27 13:58 | XR ---
EXAMINATION TYPE: XR chest 2V DATE OF EXAM: 07/27/2017 COMPARISON: Prior chest x-ray 02/26/2016 HISTORY: Weakness, cough and difficulty breathing TECHNIQUE: Frontal and lateral views of the chest are obtained. FINDINGS: Heart size may be accentuated by rotation. No airspace disease, pneumothorax, or pleural e ffusion. There are overlying cardiac leads. Pulmonary vascularity and vincent not significantly changed. IMPRESSION: No acute cardiopulmonary process.
[2017-07-27 14:05] LABS: Creatine Kinase MB 0.3 ng/mL (0.0-2.4); Troponin I <0.012 ng/mL (0.000-0.034)
[2017-07-27] MEDS ORDERED: AZITHROMYCIN 500 MG in SODIUM CHLORIDE 0.9% 250 ML IVPB STA (14:41)
[2017-07-27] MEDS ORDERED: ASPIRIN 81 MG PO STA (14:41)
[2017-07-27] MEDS ORDERED: NITROGLYCERIN SL TABS 0.4 MG TAB SUBLINGUAL PRN (14:41)
[2017-07-27] MEDS ORDERED: methylPREDNISolone SOD SUCCI 125 MG/2 ML VIAL IV STA (14:41)
--- NOTE | 2017-07-27 16:26 | P.HPIM ---
History of Present Illness 66-year-old female with a known history of asthma came in with compensative shortness of breath wheezing has been going on for last couple days. Patient never smoked patient denied any fever chills. Patient is comparing of cough unable to bring up anything patient is also found to be in atrial fibrillation patient has known atrial fibrillation history takes metoprolol 100 twice a day has normal ejection fraction the past and is on 0 alto at home which will be started back and patient will be resumed back on metoprolol patient was started on IV Solu-Medrol along with breathing treatments which will be continued and the patient does have leukocytosis with chest x-ray did show some infiltrate in the right lower lobe but no significant change from his thumb from her previous x-rays because of which ceftriaxone will be discontinued and patient will be started on oral azithromycin instead. Patient is presently on IV Cardizem as well. Patient denied any chest pain at this time Review of Systems REVIEW OF SYSTEMS: CONSTITUTIONAL: No fever, no malaise, no fatigue. HEENT: No recent visual problems or hearing problems. Denied any sore throat. CARDIOVASCULAR: No chest pain, orthopnea, PND, no palpitations, no syncope. PULMONARY: As mentioned in HPI GASTROINTESTINAL: No diarrhea, no nausea, no vomiting, no abdominal pain. Normoactive bowel sounds. NEUROLOGICAL: No headaches, no weakness, no numbness. HEMATOLOGICAL: Denies any bleeding or petechiae. GENITOURINARY: Denies any burning micturition, frequency, or urgency. MUSCULOSKELETAL/RHEUMATOLOGICAL: Denies any joint pain, swelling, or any muscle pain. ENDOCRINE: Denies any polyuria or polydipsia. The rest of the 14-point review of systems is negative. Past Medical History Past Medical History: Atrial Fibrillation, CVA/TIA, Hypertension, Rheumatoid Arthritis (RA) Additional Past Medical History / Comment(s): fibromyalgia History of Any Multi-Drug Resistant Organisms: None Reported Past Surgical History: Appendectomy, Cardiac Ablation, Cholecystectomy, Orthopedic Surgery, Tubal Ligation Past Anesthesia/Blood Transfusion Reactions: No Reported Reaction Past Psychological History: Anxiety Smoking Status: Never smoker Past Alcohol Use History: None Reported Past Drug Use History: None Reported - Past Family History Mother Family Medical History: Congestive Heart Failure (CHF), CVA/TIA, Diabetes Mellitus, Hypertension Father Family Medical History: Myocardial Infarction (NM) Sister(s) Family Medical History: Dementia Additional Family Medical History / Comment(s): schizophrenia Brother(s) Family Medical History: AFIB, Coronary Artery Disease (CAD), Dementia Additional Family Medical History / Comment(s): alcoholism, x3 stents Medications and Allergies Home Medications Medication Instructions Recorded Confirmed Type Dapsone 100 mg PO DAILY 06/20/14 07/27/17 History Metoprolol Tartrate [Lopressor] 100 mg PO BID 06/20/14 07/27/17 History sulfaSALAzine [Azulfidine] 500 mg PO Q6H 06/21/14 07/27/17 History Rivaroxaban [Xarelto] 20 mg PO DAILY 02/26/16 07/27/17 History Aspirin EC [Ecotrin Low Dose] 81 mg PO DAILY #30 tablet. 02/28/16 07/27/17 Rx Amitriptyline HCl [Elavil] 10 mg PO HS 02/21/17 07/27/17 History Chlorzoxazone [Parafon Forte Dsc] 500 mg PO TID 02/21/17 07/27/17 History Albuterol Nebulized [Ventolin 2.5 mg INHALATION RT-Q8H PRN 07/27/17 07/27/17 History Nebulized] Diazepam [Valium] 10 mg PO DAILY 07/27/17 07/27/17 History Allergies Allergy/AdvReac Type Severity Reaction Status Date / Time banana Allergy Itching Verified 07/27/17 13:16 codeine Allergy Nausea & Verified 07/27/17 13:16 Vomiting honey Allergy Swelling Verified 07/27/17 13:16 Iodinated Contrast- Oral and Allergy Swelling Verified 07/27/17 13:16 IV Dye [Iodinated Contrast Media - IV Dye] iodine Allergy AVOIDS Verified 07/27/17 13:16 SHELL FISH ALLERGY morphine Allergy Nausea & Verified 07/27/17 13:16 Vomiting piroxicam [From Feldene] Allergy Swelling Verified 07/27/17 13:16 shellfish derived Allergy Swelling Verified 07/27/17 13:16 venom-honey bee Allergy Anaphylaxis Verified 07/27/17 13:16 [bee venom (honey bee)] Physical Exam Vitals: Vital Signs Temp Pulse Resp BP Pulse Ox 07/27/17 14:09 104 H 07/27/17 13:58 99 07/27/17 13:48 99.3 F 106 H 18 138/74 95 07/27/17 12:57 101 H 148/101 92 L 07/27/17 12:33 98.9 F 20 L 125 H 134/73 94 L Intake and Output 07/27/17 07/27/17 07/27/17 06:59 14:59 22:59 Other: Weight 108.409 kg Patient Weight 07/28/17 06:59 Weight 108.409 kg PHYSICAL EXAMINATION: GENERAL: The patient is alert and oriented x3, patient isn't in respiratory distress. Well developed, well nourished. HEENT: Pupils are round and equally reacting to light. EOMI. No scleral icterus. No conjunctival pallor. Normocephalic, atraumatic. No pharyngeal erythema. No thyromegaly. CARDIOVASCULAR: S1 and S2 present. No murmurs, rubs, or gallops. PULMONARY: Limited air entry into bilateral lung vega, significant expiratory wheezing no crackles were appreciated. ABDOMEN: Soft, nontender, nondistended, normoactive bowel sounds. No palpable organomegaly. MUSCULOSKELETAL: No joint swelling or deformity. EXTREMITIES: No cyanosis, clubbing, or pedal edema. NEUROLOGICAL: Gross neurological examination did not reveal any focal deficits. SKIN: No rashes. Results CBC & Chem 7: 07/27/17 13:15 07/27/17 13:15 Labs: Abnormal Lab Results - Last 24 Hours (Table) 07/27/17 07/27/17 07/27/17 Range/Units 13:15 13:15 13:15 WBC 13.0 H (3.8-10.6) k/uL Neutrophils # 9.2 H (1.3-7.7) k/uL PT 13.5 H (9.0-12.0) sec INR 1.4 H (<1.2) APTT 35.6 H (22.0-30.0) sec Glucose 111 H (74-99) mg/dL Total Protein 8.4 H (6.3-8.2) g/dL Assessment and Plan Plan: #1 acute hypoxic respiratory failure: Most probably secondary to asthma exacerbation patient appears to have chronic intermittent asthma presently in status asthmaticus continue with Solu-Medrol and inhalational treatments. #2 probable bronchitis Bactrim bronchitis for which patient will be on azithromycin no evidence of pneumonia at this point of time. #3 leukocytosis: Reactive in nature. #4 atrial fibrillation with rapid regular rate: Patient will be continued on Cardizem we'll taper it down and the patient will be resumed on her beta blake. Her home anticoagulation with newer anticoagulants will be continued #5 hypertension #6 from her arthritis for which patient is on dapsone which will be continued. #7 CVA or TIA in the past
[2017-07-27] MEDS: SODIUM CHLORIDE 0.9% 1,000 ML IV SCH (16:49)
[2017-07-27] MEDS: sulfaSALAzine 500 MG TAB PO SCH ×2 (17:00→23:19)
[2017-07-27] MEDS: methylPREDNISolone SOD SUCCI 125 MG/2 ML VIAL IV SCH ×2 (17:00→23:19)
[2017-07-27 20:40] LABS: Glucose,Whole Blood 178 mg/dL (75-99)
[2017-07-27] MEDS: CYCLOBENZAPRINE 5 MG TAB PO SCH (20:45)
[2017-07-27] MEDS: METOPROLOL TARTRATE 50 MG TAB PO SCH (20:45)
[2017-07-27] MEDS: AMITRIPTYLINE HCL 10 MG TAB PO SCH (20:45)
[2017-07-27] MEDS: INSULIN LISPRO (humaLOG) 300 UNIT/3 ML VIAL SQ SCH ×2 (20:46→20:47)
[2017-07-27 21:08] LABS: Creatine Kinase 83 U/L (30-135)
[2017-07-27 21:13] LABS: Hemoglobin A1C 4.1 % (4.2-6.1)
[2017-07-27 21:21] LABS: Creatine Kinase MB 0.4 ng/mL (0.0-2.4); Troponin I <0.012 ng/mL (0.000-0.034)
[2017-07-28] MEDS: SODIUM CHLORIDE 0.9% 1,000 ML IV SCH ×3 (01:53→21:29)
[2017-07-28 02:09] LABS: Creatine Kinase 90 U/L (30-135)
[2017-07-28 02:20] LABS: Creatine Kinase MB 0.4 ng/mL (0.0-2.4); Troponin I <0.012 ng/mL (0.000-0.034)
[2017-07-28 05:58] LABS: CH 28.8; CHCM 31.3; HCT 36.6 % (34.0-46.0); HDW 2.82; HGB 11.4 gm/dL (11.4-16.0); MCH 28.8 pg (25.0-35.0); MCHC 31.1 g/dL (31.0-37.0); MCV 92.6 fL (80.0-100.0); Mean Platelet Volume 7.9; RBC 3.96 m/uL (3.80-5.40); WBC 12.6 k/uL (3.8-10.6)
[2017-07-28] MEDS: methylPREDNISolone SOD SUCCI 125 MG/2 ML VIAL IV SCH ×2 (06:06→11:59)
[2017-07-28] MEDS: sulfaSALAzine 500 MG TAB PO SCH ×4 (06:06→23:11)
[2017-07-28 06:14] LABS: Anion Gap 14 mmol/L; Blood Urea Nitrogen 18 mg/dL (7-17); Calcium 8.8 mg/dL (8.4-10.2); Carbon Dioxide 23 mmol/L (22-30); Chloride 106 mmol/L (98-107); Cholesterol 182 mg/dL (<200); Glucose 160 mg/dL (74-99); HDL Cholesterol 59 mg/dL (40-60); Non-African American GFR(MDRD) >60 (>60 ml/min/1.73 sqM); Potassium 4.4 mmol/L (3.5-5.1); Sodium 143 mmol/L (137-145)
[2017-07-28] MEDS: INSULIN LISPRO (humaLOG) 300 UNIT/3 ML VIAL SQ SCH ×4 (06:18→21:26)
[2017-07-28] MEDS: RIVAROXABAN 10 MG TAB PO SCH (06:52)
[2017-07-28] MEDS: IPRATROPIUM-ALBUTEROL 3 ML NEB INHALATION PRN ×2 (07:45→20:22)
[2017-07-28 07:50] LABS: Glucose,Whole Blood 155 mg/dL (75-99)
[2017-07-28] MEDS: DAPSONE 25 MG TAB PO SCH (08:29)
[2017-07-28] MEDS: CYCLOBENZAPRINE 5 MG TAB PO SCH ×3 (08:30→21:25)
[2017-07-28] MEDS: METOPROLOL TARTRATE 50 MG TAB PO SCH ×2 (08:31→21:25)
[2017-07-28] MEDS: ASPIRIN 81 MG PO SCH (08:31)
[2017-07-28] MEDS: DIAZEPAM 5 MG TAB PO SCH (08:40)
[2017-07-28] MEDS ORDERED: AZITHROMYCIN 500 MG in SODIUM CHLORIDE 0.9% 250 ML IVPB SCH (09:00)
[2017-07-28] MEDS ORDERED: ASPIRIN 325 MG TAB PO SCH (09:00)
[2017-07-28 11:53] LABS: Glucose,Whole Blood 145 mg/dL (75-99)
--- NOTE | 2017-07-28 14:49 | P.PN ---
Subjective 66-year-old female admitted for asthma exacerbation and A. fib with RVR. Patient's heart rate continues to be high but had is pretty status single failure improved patient still has expiratory wheezing with significant improvement competitors today. Patient is comparing of cough, denied any fever , chills, nausea, vomiting, abdominal pain, chest pain. Objective - Vital Signs Vital signs: Vital Signs Temp 98.4 F 07/28/17 11:41 Pulse 100 07/28/17 11:43 Resp 16 07/28/17 11:43 BP 142/88 07/28/17 11:41 Pulse Ox 95 07/28/17 11:41 Intake & Output 07/27/17 07/28/17 07/28/17 18:59 06:59 18:59 Intake Total 1100 120 Balance 1100 120 Weight 108.409 kg 108.7 kg Intake: Intake, IV Titration 1100 Amount Sodium Chloride 0.9% 1, 1100 000 ml @ 100 mls/hr IV . Q10H [facility] Rx#:[id number] Oral 120 Other: # Voids 1 - Exam PHYSICAL EXAMINATION: GENERAL: The patient is alert and oriented x3, not in any acute distress. Well developed, well nourished. HEENT: Pupils are round and equally reacting to light. EOMI. No scleral icterus. No conjunctival pallor. Normocephalic, atraumatic. No pharyngeal erythema. No thyromegaly. CARDIOVASCULAR: S1 and S2 present. No murmurs, rubs, or gallops. Patient has irregular heartbeat tachycardic PULMONARY: Chest is clear to auscultation, no crackles. Expiratory wheezing significant improved compared to yesterday with fairly good air entry into bilateral lung vega ABDOMEN: Soft, nontender, nondistended, normoactive bowel sounds. No palpable organomegaly. MUSCULOSKELETAL: No joint swelling or deformity. EXTREMITIES: No cyanosis, clubbing, or pedal edema. NEUROLOGICAL: Gross neurological examination did not reveal any focal deficits. SKIN: No rashes. - Labs CBC & Chem 7: 07/28/17 05:36 07/28/17 05:36 Labs: Abnormal Lab Results - Last 24 Hours (Table) 07/27/17 07/27/17 07/28/17 Range/Units 13:15 20:37 05:36 WBC (3.8-10.6) k/uL BUN 18 H (7-17) mg/dL Glucose 160 H (74-99) mg/dL POC Glucose (mg/dL) 178 H (75-99) mg/dL Hemoglobin A1c 4.1 L (4.2-6.1) % LDL Cholesterol, Calc 105 H (0-99) mg/dL 07/28/17 07/28/17 07/28/17 Range/Units 05:36 06:11 11:25 WBC 12.6 H (3.8-10.6) k/uL BUN (7-17) mg/dL Glucose (74-99) mg/dL POC Glucose (mg/dL) 155 H 145 H (75-99) mg/dL Hemoglobin A1c (4.2-6.1) % LDL Cholesterol, Calc (0-99) mg/dL Assessment and Plan Plan: #1 acute hypoxic respiratory failure: Most probably secondary to asthma exacerbation patient appears to have chronic intermittent asthma presently in status asthmaticus continue with Solu-Medrol and inhalational treatments. Significant improvement competitors today we'll cut down the systemic strides #2 probable bronchitis bronchitis for which patient will be on azithromycin no evidence of pneumonia at this point of time. #3 leukocytosis: Reactive in nature. #4 atrial fibrillation with rapid regular rate: We'll continue with anticoagulation consul cardiology continue with beta blake atrial fibrillation is frustrated by hypoxemia #5 hypertension #6 for her arthritis for which patient is on dapsone which will be continued. #7 CVA or TIA in the past
[2017-07-28] MEDS: HYDROmorphone 1 MG/ML 1 ML SYRINGE IVP PRN (15:56)
[2017-07-28] MEDS: AZITHROMYCIN 500 MG TAB PO SCH (16:02)
[2017-07-28 17:12] LABS: Glucose,Whole Blood 159 mg/dL (75-99)
[2017-07-28] MEDS: methylPREDNISolone SOD SUCCI 40 MG/ML 1 ML VIAL IV SCH ×2 (17:34→23:11)
[2017-07-28 20:56] LABS: Glucose,Whole Blood 143 mg/dL (75-99)
[2017-07-28] MEDS: AMITRIPTYLINE HCL 10 MG TAB PO SCH (21:25)
[2017-07-29 05:51] LABS: Glucose,Whole Blood 131 mg/dL (75-99)
[2017-07-29 06:17] LABS: ALT 27 U/L (9-52); AST 19 U/L (14-36); Alkaline Phosphatase 82 U/L (38-126); Anion Gap 9 mmol/L; Blood Urea Nitrogen 20 mg/dL (7-17); Calcium 8.6 mg/dL (8.4-10.2); Carbon Dioxide 24 mmol/L (22-30); Chloride 108 mmol/L (98-107); Glucose 142 mg/dL (74-99); Non-African American GFR(MDRD) >60 (>60 ml/min/1.73 sqM); Potassium 4.6 mmol/L (3.5-5.1); Sodium 141 mmol/L (137-145); Total Bilirubin 0.3 mg/dL (0.2-1.3); Total Protein 7.3 g/dL (6.3-8.2)
[2017-07-29] MEDS: INSULIN LISPRO (humaLOG) 300 UNIT/3 ML VIAL SQ SCH ×4 (06:48→21:11)
[2017-07-29] MEDS: sulfaSALAzine 500 MG TAB PO SCH ×3 (06:50→18:23)
[2017-07-29] MEDS: RIVAROXABAN 10 MG TAB PO SCH (06:50)
[2017-07-29] MEDS: SODIUM CHLORIDE 0.9% 1,000 ML IV SCH ×2 (06:53→15:23)
[2017-07-29] MEDS: DAPSONE 25 MG TAB PO SCH (09:15)
[2017-07-29] MEDS: methylPREDNISolone SOD SUCCI 40 MG/ML 1 ML VIAL IV SCH ×2 (09:15→15:21)
[2017-07-29] MEDS: ASPIRIN 81 MG PO SCH (09:16)
[2017-07-29] MEDS: DIAZEPAM 5 MG TAB PO SCH (09:16)
[2017-07-29] MEDS: CYCLOBENZAPRINE 5 MG TAB PO SCH ×3 (09:16→20:57)
[2017-07-29] MEDS: METOPROLOL TARTRATE 50 MG TAB PO SCH ×2 (09:16→20:57)
[2017-07-29] MEDS: DILTIAZEM ORAL 30 MG TAB PO SCH ×3 (09:53→20:57)
[2017-07-29] MEDS: HYDROmorphone 1 MG/ML 1 ML SYRINGE IVP PRN ×2 (10:01→20:57)
--- NOTE | 2017-07-29 11:23 | ECHOF ---
Referral Reason:afib MEASUREMENTS -------- HEIGHT: 160.0 cm WEIGHT: 110.7 kg BP: 138/84 RVIDd: 2.9 cm (< 3.3) IVSd: 1.4 cm (0.6 - 1.1) LVIDd: 4.4 cm (3.9 - 5.3) LVPWd: 1.3 cm (0.6 - 1.1) IVSs: 1.7 cm LVIDs: 3.2 cm LVPWs: 1.7 cm LA Diam: 4.2 cm (2.7 - 3.8) Ao Diam: 3.1 cm (2.0 - 3.7) AV Cusp: 1.9 cm (1.5 - 2.6) LA Diam: 4.6 cm (2.7 - 3.8) MV E Dannie: 0.80 m/s MV DecT: 195 ms MV A Dannie: 0.03 m/s MV E/A Ratio: 27.38 RAP: 5.00 mmHg RVSP: 34.70 mmHg FINDINGS -------- Atrial fibrillation. This was a techncally difficult study with suboptimal views, , Definity utilized for enhancement of images. The left ventricular size is normal. There is mild concentric left ventricular hypertrophy. Overall left ventricular systolic function is low-normal with, an EF between 50 - 55 %. The right ventricle is normal in size. The left atrium is mildly dilated , and the LA measures 4.2cm. The right atrial size is normal. 1.5MG OF DEFINITY UTLIZED: 2 OR MORE WALL SEGMENTS NOT VISUALIZED. The aortic valve was not well visualized. Mild mitral regurgitation is present. Mild tricuspid regurgitation present. There is mild pulmonary hypertension. The right ventricular systolic pressure, as measured by Doppler, is 34.70mmHg. The pulmonic valve was not well visualized. The aortic root size is normal. There is no pericardial effusion. CONCLUSIONS -------- 1. This was a techncally difficult study with suboptimal views, , Definity utilized for enhancement of images. 2. Mild tricuspid regurgitation present. 3. There is mild pulmonary hypertension. 4. The right ventricular systolic pressure, as measured by Doppler, is 34.70mmHg. 5. The pulmonic valve was not well visualized. 6. The aortic root size is normal. 7. There is no pericardial effusion. 8. The left ventricular size is normal. 9. There is mild concentric left ventricular hypertrophy. 10. Overall left ventricular systolic function is low-normal with, an EF between 50 - 55 %. 11. The left atrium is mildly dilated. 12. The right atrial size is normal. 13. 1.5MG OF DEFINITY UTLIZED: 2 OR MORE WALL SEGMENTS NOT VISUALIZED. 14. The aortic valve was not well visualized. 15. Mild mitral regurgitation is present. OIL PIPELINE OPERATOR: Lisa Hurtado RDCS
[2017-07-29 11:40] LABS: Glucose,Whole Blood 119 mg/dL (75-99)
[2017-07-29] MEDS: IPRATROPIUM-ALBUTEROL 3 ML NEB INHALATION PRN ×3 (11:44→19:44)
--- NOTE | 2017-07-29 12:17 | CDI ---
In responding to this query, please exercise your independent professional judgment. The [facility] Coding Staff and Clinical Documentation Specialists appreciate your assistance in clarifying documentation, maintaining compliance with coding guidelines, accurately documenting patients condition and capturing severity of illness. The fact that a question is asked does not imply that any particular answer is desired or expected. Communication forms are a method of clarifying documentation and are not made part of the Legal Health Record. Thank you in advance for your clarification. Last Revision, September 2015 Alcon Suh [address] [facility] [place] [address] Documentation Clarification Form Date: 07/29/2017 11:49:00 AM From: Gissel Melvi Admit Date: 07/27/2017 2:41:00 PM Patient Name: Ciarra Mercer Visit Number: [id number] Discharge Date: Dr. Jose Manuel Means Probable bronchitis is in your H/P and progress notes. Patient history/risk factors: CVA/TIA, A. fib, Hypertension, Clinical Indicators: Complaints with shortness of breath, wheezing. Vital Signs: 134/73 125 20 98.9 Other Clinical Indicators: Cough has been persistent with increased exertional shortness of breath. Treatment: Azithromycin PO Duoneb's : In your professional opinion, can you please clarify the acuity of bronchitis Acute Acute on Chronic Other Unable to determine Please clarify the type of bronchitis if known? Allergic, Asthmatic Chronic obstructive bronchitis Other (please specify) Unknown Unable to determine Please document in your progress notes and discharge summary in order to capture severity of illness and risk of mortality. Include clinical findings that support your diagnosis. FYI: Press F11 to launch patient chart. LARISSA
--- NOTE | 2017-07-29 14:30 | CONS ---
CONSULTATION CHIEF COMPLAINT: Atrial fibrillation with rapid ventricular rate. REASON FOR CONSULTATION: Atrial fibrillation with rapid ventriculare rate. Ciarra is a 66-year-old lady with history of chronic atrial fibrillation, asthma, hypertension and insulin-requiring diabetes who was admitted to the hospital with symptoms of shortness of breath and wheezing for the last few days. She comes to the hospital for the same because of not responding to therapy in the outpatient setting. She was found to be in atrial fibrillation with rapid ventricular rate and had been admitted to hospital for the same. At the time of my evaluation this morning. she is still somewhat short of breath. Heart rate is better controlled. Denies any chest pain. EKG shows atrial fibrillation with nonspecific ST-T wave changes. PAST MEDICAL HISTORY: Significant for asthma, hypertension, diabetes and chronic atrial fibrillation. MEDICATIONS: Medications at home include sulfasalazine 500 q.6, Xarelto 20 q. daily, Lopressor 100 b.i.d., Valium 10 q. daily, dapsone, aspirin, Elavil and Ventolin. ALLERGIC: Patient is allergic to CODEINE, IV DYE, SHELL FISH. FAMILY HISTORY: Negative for premature coronary artery disease. SOCIAL HISTORY: Negative for current smoking, EtOH abuse or drug abuse. REVIEW OF SYSTEMS: HEENT is unremarkable. CARDIAC: As described above. RESPIRATORY: As described above. GI: Negative. GENITOURINARY: Negative. ALLERGY/IMMUNOLOGY: Negative. MUSCULOSKELETAL: Significant for arthritis. PSYCHOSOCIAL: Negative. ENDOCRINE: Negative. DERM: Negative. CONSTITUTIONAL: Negative. ONCOLOGICAL: Negative. Rest of the systems review not relevant. PHYSICAL EXAMINATION: On exam, heart rate is 110 beats per minute. Blood pressure is 150/90. Respiration is 18. Chest exam reveals bilateral diffuse rhonchi. Heart exam reveals first and second heart sounds. No gallop. Abdomen is soft. Exam of the extremities did not reveal any edema. Peripheral pulses are felt. LABS: Labs show potassium of 4.6, creatinine is 0.7. Hemoglobin is 11.4, platelet count is 240. EKG shows atrial fibrillation with nonspecific ST-T wave changes. ASSESSMENT: 1. Chronic atrial fibrillation with poorly controlled ventricular rate. 2. Chronic obstructive pulmonary disease exacerbation. 3. History of hypertension. PLAN: I am going to add Cardizem 30 mg q.8h hours. Review the echocardiogram once it is available. Continue the Xarelto that shed is currently on. Thank you for letting us participate in the care of this pleasant lady. SVEN / MARLEN: [id number] /
--- NOTE | 2017-07-29 14:54 | P.PN ---
Subjective 66-year-old female admitted for asthma exacerbation and A. fib with RVR. Patient is pretty status did improve did improve compared to yesterday and she can use to be tachycardic and continues to have wheezing at this time.. Patient is comparing of cough, denied any fever, chills, nausea, vomiting, abdominal pain, chest pain. Objective - Vital Signs Vital signs: Vital Signs Temp 98.3 F 07/29/17 11:52 Pulse 112 H 07/29/17 11:56 Resp 20 07/29/17 11:52 BP 131/85 07/29/17 11:52 Pulse Ox 95 07/29/17 11:52 Intake & Output 07/28/17 07/29/17 07/29/17 18:59 06:59 18:59 Intake Total 1080 1000 480 Balance 1080 1000 480 Weight 110.8 kg Intake: Intake, IV Titration 600 1000 Amount Sodium Chloride 0.9% 1, 1000 000 ml @ 100 mls/hr IV . Q10H [facility] Rx#:[id number] Sodium Chloride 0.9% 1, 600 000 ml @ 100 mls/hr IV . Q10H [facility] Rx#:[id number] Oral 480 480 Other: # Voids 2 1 3 - Exam PHYSICAL EXAMINATION: GENERAL: The patient is alert and oriented x3, not in any acute distress. Well developed, well nourished. HEENT: Pupils are round and equally reacting to light. EOMI. No scleral icterus. No conjunctival pallor. Normocephalic, atraumatic. No pharyngeal erythema. No thyromegaly. CARDIOVASCULAR: S1 and S2 present. No murmurs, rubs, or gallops. Patient has irregular heartbeat tachycardic PULMONARY: Chest is clear to auscultation, no crackles. Expiratory wheezing significant improved compared to yesterday with fairly good air entry into bilateral lung vega ABDOMEN: Soft, nontender, nondistended, normoactive bowel sounds. No palpable organomegaly. MUSCULOSKELETAL: No joint swelling or deformity. EXTREMITIES: No cyanosis, clubbing, or pedal edema. NEUROLOGICAL: Gross neurological examination did not reveal any focal deficits. SKIN: No rashes. - Labs CBC & Chem 7: 07/28/17 05:36 07/29/17 05:46 Labs: Abnormal Lab Results - Last 24 Hours (Table) 07/28/17 07/28/17 07/29/17 Range/Units 16:59 20:53 05:46 Chloride 108 H (98-107) mmol/L BUN 20 H (7-17) mg/dL Glucose 142 H (74-99) mg/dL POC Glucose (mg/dL) 159 H 143 H (75-99) mg/dL 07/29/17 07/29/17 Range/Units 05:49 11:36 Chloride (98-107) mmol/L BUN (7-17) mg/dL Glucose (74-99) mg/dL POC Glucose (mg/dL) 131 H 119 H (75-99) mg/dL Assessment and Plan Plan: #1 acute hypoxic respiratory failure: Most probably secondary to asthma exacerbation patient appears to have chronic intermittent asthma presently in status asthmaticus continue with Solu-Medrol and inhalational treatments. Significant improvement competitors today we'll cut down the systemic strides #2 probable acute bronchitis for which patient will be on azithromycin no evidence of pneumonia at this point of time. #3 leukocytosis: Reactive in nature. #4 atrial fibrillation with rapid regular rate: We'll continue with anticoagulation consul cardiology continue with beta blake atrial fibrillation is frustrated by hypoxemia #5 hypertension #6 for her arthritis for which patient is on dapsone which will be continued. #7 CVA or TIA in the past
[2017-07-29] MEDS: AZITHROMYCIN 500 MG TAB PO SCH (15:21)
[2017-07-29 16:39] LABS: Glucose,Whole Blood 131 mg/dL (75-99)
[2017-07-29] MEDS: AMITRIPTYLINE HCL 10 MG TAB PO SCH (20:57)
[2017-07-29 21:12] LABS: Glucose,Whole Blood 117 mg/dL (75-99)
[2017-07-30] MEDS: methylPREDNISolone SOD SUCCI 40 MG/ML 1 ML VIAL IV SCH ×3 (00:42→16:03)
[2017-07-30] MEDS: sulfaSALAzine 500 MG TAB PO SCH ×4 (00:42→17:18)
[2017-07-30] MEDS: HYDROmorphone 1 MG/ML 1 ML SYRINGE IVP PRN ×4 (05:16→20:07)
[2017-07-30] MEDS: INSULIN LISPRO (humaLOG) 300 UNIT/3 ML VIAL SQ SCH ×4 (06:28→21:10)
[2017-07-30] MEDS: SODIUM CHLORIDE 0.9% 1,000 ML IV SCH ×3 (06:38→21:10)
[2017-07-30] MEDS: RIVAROXABAN 10 MG TAB PO SCH (06:39)
[2017-07-30 06:45] LABS: Glucose,Whole Blood 125 mg/dL (75-99)
[2017-07-30] MEDS: IPRATROPIUM-ALBUTEROL 3 ML NEB INHALATION PRN ×4 (08:08→20:21)
[2017-07-30] MEDS: METOPROLOL TARTRATE 50 MG TAB PO SCH ×2 (08:22→20:06)
[2017-07-30] MEDS: DAPSONE 25 MG TAB PO SCH (08:22)
[2017-07-30] MEDS: CYCLOBENZAPRINE 5 MG TAB PO SCH ×3 (08:22→21:10)
[2017-07-30] MEDS: DIAZEPAM 5 MG TAB PO SCH (08:23)
[2017-07-30] MEDS: ASPIRIN 81 MG PO SCH (08:23)
[2017-07-30] MEDS: DILTIAZEM ORAL 30 MG TAB PO SCH (08:23)
--- NOTE | 2017-07-30 11:07 | P.PN ---
Subjective Principal diagnosis: Nestor ramirez This is a pleasant 66-year-old female admitted to the hospital with exacerbation of asthma. Cardiology consultation was requested because of atrial fibrillation with rapid ventricular response. Patient was started on Cardizem yesterday by Dr. Lin. Her heart rate this morning is in the 90s to low 100s. We will increase the Cardizem to 60 mg 3 times a day. She is on Xarelto for anticoagulation. Upon examination this morning, patient continues to feel short of breath, she states she is coughing significantly, green to brown sputum. Afebrile. Blood pressure 127/80. White blood cell count 13,000 on admission. Repeat a chest x-ray this morning. Objective - Vital Signs Vital signs: Vital Signs Temp 97.2 F L 07/30/17 07:44 Pulse 104 H 07/30/17 08:19 Resp 18 07/30/17 07:44 BP 142/90 07/30/17 07:44 Pulse Ox 93 L 07/30/17 07:44 Intake & Output 07/29/17 07/30/17 07/30/17 18:59 06:59 18:59 Intake Total 480 800 240 Balance 480 800 240 Weight 113.9 kg Intake: Intake, IV Titration 800 Amount Sodium Chloride 0.9% 1, 800 000 ml @ 100 mls/hr IV . Q10H [facility] Rx#:[id number] Oral 480 240 Other: Voiding Method Toilet # Voids 1 - Exam PHYSICAL EXAMINATION: HEENT: Head is atraumatic, normocephalic. Pupils equal, round. Neck is supple. There is no elevated jugular venous pressure. HEART EXAMINATION: S1 and S2 irregularly irregular CHEST EXAMINATION:lungs reveal decreased air exchange throughout with wheezing and rhonchi bilaterally. ABDOMEN: Soft, nontender. Bowel sounds are heard. No organomegaly noted. EXTREMITIES: 2+ peripheral pulses with evidence of peripheral edema and no calf tenderness noted. NEUROLOGIC patient is awake, alert and oriented -3. . - Labs CBC & Chem 7: 07/28/17 05:36 07/29/17 05:46 Labs: Abnormal Lab Results - Last 24 Hours (Table) 07/29/17 07/29/17 07/29/17 Range/Units 11:36 16:38 21:11 POC Glucose (mg/dL) 119 H 131 H 117 H (75-99) mg/dL 07/30/17 Range/Units 06:21 POC Glucose (mg/dL) 125 H (75-99) mg/dL Assessment and Plan (1) Chronic a-fib Status: Acute (2) COPD exacerbation Status: Acute (3) Asthma exacerbation Status: Acute (4) HTN (hypertension) Status: Acute Plan: From cardiology's perspective, we'll increase the patient's Cardizem to 60 mg by mouth 3 times a day. Continue Xarelto. DNP note has been reviewed, I agree with a documented findings and plan of care. Patient was seen and examined.
[2017-07-30 12:00] LABS: Glucose,Whole Blood 131 mg/dL (75-99)
--- NOTE | 2017-07-30 15:03 | P.PN ---
Subjective 66-year-old female admitted for asthma exacerbation and A. fib with RVR. Patient is pretty status did improve did improve compared to yesterday and she can use to be tachycardic and continues to have wheezing at this time.. 07/30/2017 Patient can use to have significant wheezing on exam and was switched to oral Cardizem heart rate is still high. Patient is comparing of cough, denied any fever, chills, nausea, vomiting, abdominal pain, chest pain. Objective - Vital Signs Vital signs: Vital Signs Temp 96.2 F L 07/30/17 11:31 Pulse 104 H 07/30/17 11:44 Resp 20 07/30/17 11:31 BP 149/93 07/30/17 11:31 Pulse Ox 94 L 07/30/17 11:31 Intake & Output 07/29/17 07/30/17 07/30/17 18:59 06:59 18:59 Intake Total 480 800 240 Balance 480 800 240 Weight 113.9 kg Intake: Intake, IV Titration 800 Amount Sodium Chloride 0.9% 1, 800 000 ml @ 100 mls/hr IV . Q10H [facility] Rx#:[id number] Oral 480 240 Other: Voiding Method Toilet # Voids 1 - Exam PHYSICAL EXAMINATION: GENERAL: The patient is alert and oriented x3, not in any acute distress. Well developed, well nourished. HEENT: Pupils are round and equally reacting to light. EOMI. No scleral icterus. No conjunctival pallor. Normocephalic, atraumatic. No pharyngeal erythema. No thyromegaly. CARDIOVASCULAR: S1 and S2 present. No murmurs, rubs, or gallops. Patient has irregular heartbeat tachycardic PULMONARY: Chest is clear to auscultation, no crackles. Expiratory wheezing significant improved compared to yesterday with fairly good air entry into bilateral lung vega ABDOMEN: Soft, nontender, nondistended, normoactive bowel sounds. No palpable organomegaly. MUSCULOSKELETAL: No joint swelling or deformity. EXTREMITIES: No cyanosis, clubbing, or pedal edema. NEUROLOGICAL: Gross neurological examination did not reveal any focal deficits. SKIN: No rashes. - Labs CBC & Chem 7: 07/28/17 05:36 07/29/17 05:46 Labs: Abnormal Lab Results - Last 24 Hours (Table) 07/29/17 07/29/17 07/30/17 Range/Units 16:38 21:11 06:21 POC Glucose (mg/dL) 131 H 117 H 125 H (75-99) mg/dL 07/30/17 Range/Units 11:52 POC Glucose (mg/dL) 131 H (75-99) mg/dL Assessment and Plan Plan: #1 acute hypoxic respiratory failure: Most probably secondary to asthma exacerbation patient appears to have chronic intermittent asthma presently in status asthmaticus continue with Solu-Medrol and inhalational treatments. Significant improvement competitors today we'll cut down the systemic strides #2 probable acute bronchitis for which patient will be on azithromycin no evidence of pneumonia at this point of time. #3 leukocytosis: Reactive in nature. #4 atrial fibrillation with rapid regular rate: We'll continue with anticoagulation consul cardiology continue with beta blake atrial fibrillation is frustrated by hypoxemia #5 hypertension #6 for her arthritis for which patient is on dapsone which will be continued. #7 CVA or TIA in the past
[2017-07-30] MEDS: AZITHROMYCIN 500 MG TAB PO SCH (16:02)
[2017-07-30] MEDS: DILTIAZEM ORAL 60 MG TAB PO SCH ×2 (16:05→21:10)
[2017-07-30 17:01] LABS: Glucose,Whole Blood 143 mg/dL (75-99)
[2017-07-30] MEDS: AMITRIPTYLINE HCL 10 MG TAB PO SCH (20:06)
[2017-07-30 21:21] LABS: Glucose,Whole Blood 164 mg/dL (75-99)
[2017-07-31] MEDS: sulfaSALAzine 500 MG TAB PO SCH ×4 (00:10→17:34)
[2017-07-31] MEDS: methylPREDNISolone SOD SUCCI 40 MG/ML 1 ML VIAL IV SCH ×3 (00:10→15:43)
[2017-07-31 06:16] LABS: CH 28.5; CHCM 30.5; HCT 33.1 % (34.0-46.0); HDW 2.69; Hypochromasia Slight; MCH 28.5 pg (25.0-35.0); MCHC 30.4 g/dL (31.0-37.0); Mean Platelet Volume 8.3; RBC 3.52 m/uL (3.80-5.40); RDW 14.5 % (11.5-15.5); WBC 12.1 k/uL (3.8-10.6)
[2017-07-31 06:26] LABS: Anion Gap 7 mmol/L; Blood Urea Nitrogen 20 mg/dL (7-17); Carbon Dioxide 27 mmol/L (22-30); Chloride 104 mmol/L (98-107); Glucose 147 mg/dL (74-99); Non-African American GFR(MDRD) >60 (>60 ml/min/1.73 sqM); Potassium 5.6 mmol/L (3.5-5.1); Sodium 138 mmol/L (137-145)
[2017-07-31] MEDS: RIVAROXABAN 10 MG TAB PO SCH (06:36)
[2017-07-31] MEDS: INSULIN LISPRO (humaLOG) 300 UNIT/3 ML VIAL SQ SCH ×4 (06:36→20:57)
[2017-07-31 06:38] LABS: Glucose,Whole Blood 150 mg/dL (75-99)
[2017-07-31] MEDS: IPRATROPIUM-ALBUTEROL 3 ML NEB INHALATION PRN ×3 (07:39→21:12)
[2017-07-31] MEDS: DAPSONE 25 MG TAB PO SCH (08:46)
[2017-07-31] MEDS: DIAZEPAM 5 MG TAB PO SCH (08:46)
[2017-07-31] MEDS: METOPROLOL TARTRATE 50 MG TAB PO SCH ×2 (08:46→20:58)
[2017-07-31] MEDS: DILTIAZEM ORAL 60 MG TAB PO SCH ×3 (08:46→20:58)
[2017-07-31] MEDS: CYCLOBENZAPRINE 5 MG TAB PO SCH ×3 (08:46→20:58)
[2017-07-31] MEDS: ASPIRIN 81 MG PO SCH (08:47)
[2017-07-31] MEDS: HYDROmorphone 1 MG/ML 1 ML SYRINGE IVP PRN (08:47)
[2017-07-31 11:27] LABS: Glucose,Whole Blood 119 mg/dL (75-99)
--- NOTE | 2017-07-31 12:29 | P.PN ---
Subjective Principal diagnosis: A. fib This is a pleasant 66-year-old female admitted to the hospital with exacerbation of asthma. Cardiology consultation was requested because of atrial fibrillation with rapid ventricular response. The patient continues to be in A. fib with relatively controlled heart rate. She is on calcium channel blake as well as oral anticoagulation. Clinically she is feeling better. She still having mild shortness of breath. Objective - Vital Signs Vital signs: Vital Signs Temp 97.1 F L 07/31/17 12:16 Pulse 121 H 07/31/17 12:16 Resp 20 07/31/17 12:16 BP 110/83 07/31/17 12:16 Pulse Ox 90 L 07/31/17 12:16 Intake & Output 07/30/17 07/31/17 07/31/17 18:59 06:59 18:59 Intake Total 1280 800 120 Balance 1280 800 120 Intake: Intake, IV Titration 800 800 Amount Sodium Chloride 0.9% 1, 800 800 000 ml @ 100 mls/hr IV . Q10H [facility] Rx#:[id number] Oral 480 120 Other: Voiding Method Toilet # Voids 3 - Constitutional General appearance: Present: no acute distress - Respiratory Respiratory: bilateral: diminished - Cardiovascular Rhythm: irregularly irregular Heart sounds: normal: S1, S2 - Labs CBC & Chem 7: 07/31/17 05:36 07/31/17 05:36 Labs: Abnormal Lab Results - Last 24 Hours (Table) 07/30/17 07/30/17 07/31/17 Range/Units 16:53 21:08 05:36 WBC 12.1 H (3.8-10.6) k/uL RBC 3.52 L (3.80-5.40) m/uL Hgb 10.0 L (11.4-16.0) gm/dL Hct 33.1 L (34.0-46.0) % MCHC 30.4 L (31.0-37.0) g/dL Potassium (3.5-5.1) mmol/L BUN (7-17) mg/dL Glucose (74-99) mg/dL POC Glucose (mg/dL) 143 H 164 H (75-99) mg/dL 07/31/17 07/31/17 07/31/17 Range/Units 05:36 06:32 11:23 WBC (3.8-10.6) k/uL RBC (3.80-5.40) m/uL Hgb (11.4-16.0) gm/dL Hct (34.0-46.0) % MCHC (31.0-37.0) g/dL Potassium 5.6 H (3.5-5.1) mmol/L BUN 20 H (7-17) mg/dL Glucose 147 H (74-99) mg/dL POC Glucose (mg/dL) 150 H 119 H (75-99) mg/dL Assessment and Plan Plan: This is a pleasant 66-year-old female patient was admitted to the hospital was asthma exacerbation. We get involved in the care of the patient for A. fib. The patient continues to be in A. fib with relatively controlled heart rate. We'll continue the current above dose of calcium channel balke as well as oral anticoagulation and follow-up with her.
[2017-07-31] MEDS ORDERED: SODIUM POLYSTYRENE SULFONATE 15 GM/60 ML BOTTLE PO STA (13:58)
--- NOTE | 2017-07-31 14:36 | P.PN ---
Subjective 66-year-old female admitted for asthma exacerbation and A. fib with RVR. Patient is pretty status did improve did improve compared to yesterday and she can use to be tachycardic and continues to have wheezing at this time.. 07/30/2017 Patient can use to have significant wheezing on exam and was switched to oral Cardizem heart rate is still high. 7 12/31/2016 Patient is still wheezing but says she has significant improvement competitors today counseling her continued symptoms and rhonchus breath sounds all consult pulmonary for possibility of bronchoscopy. Patient is comparing of cough, denied any fever, chills, nausea, vomiting, abdominal pain, chest pain. Objective - Vital Signs Vital signs: Vital Signs Temp 97.1 F L 07/31/17 12:16 Pulse 121 H 07/31/17 12:16 Resp 20 07/31/17 12:16 BP 110/83 07/31/17 12:16 Pulse Ox 90 L 07/31/17 12:16 Intake & Output 07/30/17 07/31/17 07/31/17 18:59 06:59 18:59 Intake Total 1280 800 360 Balance 1280 800 360 Intake: Intake, IV Titration 800 800 Amount Sodium Chloride 0.9% 1, 800 800 000 ml @ 100 mls/hr IV . Q10H [facility] Rx#:[id number] Oral 480 360 Other: Voiding Method Toilet # Voids 3 - Exam PHYSICAL EXAMINATION: GENERAL: The patient is alert and oriented x3, not in any acute distress. Well developed, well nourished. HEENT: Pupils are round and equally reacting to light. EOMI. No scleral icterus. No conjunctival pallor. Normocephalic, atraumatic. No pharyngeal erythema. No thyromegaly. CARDIOVASCULAR: S1 and S2 present. No murmurs, rubs, or gallops. Patient has irregular heartbeat tachycardic PULMONARY: Chest is clear to auscultation, no crackles. Expiratory wheezing significant improved compared to yesterday with fairly good air entry into bilateral lung vega ABDOMEN: Soft, nontender, nondistended, normoactive bowel sounds. No palpable organomegaly. MUSCULOSKELETAL: No joint swelling or deformity. EXTREMITIES: No cyanosis, clubbing, or pedal edema. NEUROLOGICAL: Gross neurological examination did not reveal any focal deficits. SKIN: No rashes. - Labs CBC & Chem 7: 07/31/17 05:36 07/31/17 05:36 Labs: Abnormal Lab Results - Last 24 Hours (Table) 07/30/17 07/30/17 07/31/17 Range/Units 16:53 21:08 05:36 WBC 12.1 H (3.8-10.6) k/uL RBC 3.52 L (3.80-5.40) m/uL Hgb 10.0 L (11.4-16.0) gm/dL Hct 33.1 L (34.0-46.0) % MCHC 30.4 L (31.0-37.0) g/dL Potassium (3.5-5.1) mmol/L BUN (7-17) mg/dL Glucose (74-99) mg/dL POC Glucose (mg/dL) 143 H 164 H (75-99) mg/dL 07/31/17 07/31/17 07/31/17 Range/Units 05:36 06:32 11:23 WBC (3.8-10.6) k/uL RBC (3.80-5.40) m/uL Hgb (11.4-16.0) gm/dL Hct (34.0-46.0) % MCHC (31.0-37.0) g/dL Potassium 5.6 H (3.5-5.1) mmol/L BUN 20 H (7-17) mg/dL Glucose 147 H (74-99) mg/dL POC Glucose (mg/dL) 150 H 119 H (75-99) mg/dL Assessment and Plan Plan: #1 acute hypoxic respiratory failure: Most probably secondary to asthma exacerbation patient appears to have chronic intermittent asthma presently in status asthmaticus continue with Solu-Medrol and inhalational treatments. Significant improvement competitors today we'll cut down the systemic strides #2 probable acute bronchitis for which patient will be on azithromycin no evidence of pneumonia at this point of time. #3 leukocytosis: Reactive in nature. #4 atrial fibrillation with rapid regular rate: We'll continue with anticoagulation consul cardiology continue with beta blake atrial fibrillation is frustrated by hypoxemia #5 hypertension #6 for her arthritis for which patient is on dapsone which will be continued. #7 CVA or TIA in the past
[2017-07-31] MEDS: AZITHROMYCIN 500 MG TAB PO SCH (15:42)
[2017-07-31 16:50] LABS: Glucose,Whole Blood 159 mg/dL (75-99)
[2017-07-31] MEDS: SODIUM CHLORIDE 0.9% 1,000 ML IV SCH ×2 (18:21→20:57)
[2017-07-31 20:53] LABS: Glucose,Whole Blood 131 mg/dL (75-99)
[2017-07-31] MEDS: AMITRIPTYLINE HCL 10 MG TAB PO SCH (20:57)
[2017-08-01] MEDS: sulfaSALAzine 500 MG TAB PO SCH ×5 (00:38→23:23)
[2017-08-01] MEDS: methylPREDNISolone SOD SUCCI 40 MG/ML 1 ML VIAL IV SCH ×4 (00:38→23:22)
[2017-08-01 05:50] LABS: Glucose,Whole Blood 125 mg/dL (75-99)
[2017-08-01] MEDS: SODIUM CHLORIDE 0.9% 1,000 ML IV SCH ×2 (06:44→14:16)
[2017-08-01] MEDS: RIVAROXABAN 10 MG TAB PO SCH (06:45)
[2017-08-01] MEDS: INSULIN LISPRO (humaLOG) 300 UNIT/3 ML VIAL SQ SCH ×4 (06:45→21:50)
[2017-08-01] MEDS: IPRATROPIUM-ALBUTEROL 3 ML NEB INHALATION PRN ×3 (07:13→19:05)
[2017-08-01] MEDS: DIAZEPAM 5 MG TAB PO SCH (08:37)
[2017-08-01] MEDS: DILTIAZEM ORAL 60 MG TAB PO SCH ×3 (08:37→20:58)
[2017-08-01] MEDS: METOPROLOL TARTRATE 50 MG TAB PO SCH ×2 (08:37→20:58)
[2017-08-01] MEDS: ASPIRIN 81 MG PO SCH (08:37)
[2017-08-01] MEDS: CYCLOBENZAPRINE 5 MG TAB PO SCH ×3 (08:37→20:58)
[2017-08-01] MEDS: DAPSONE 25 MG TAB PO SCH (08:49)
[2017-08-01] MEDS: HYDROmorphone 1 MG/ML 1 ML SYRINGE IVP PRN ×3 (08:50→21:50)
--- NOTE | 2017-08-01 10:27 | P.PN ---
Subjective Principal diagnosis: A. fib This is a pleasant 66-year-old female admitted to the hospital with exacerbation of asthma. Cardiology consultation was requested because of atrial fibrillation with rapid ventricular response. Patient was started on Cardizem yesterday by Dr. Lin. Her heart rate this morning is in the 90s to low 100s. We will increase the Cardizem to 60 mg 3 times a day. She is on Xarelto for anticoagulation. Upon examination this morning, patient continues to feel short of breath, she states she is coughing significantly, green to brown sputum. Afebrile. Blood pressure 127/80. White blood cell count 13,000 on admission. Repeat a chest x-ray this morning. Patient seen and examined this morning, she needs to cough up significant amounts of green sputum. Afebrile. Heart rate up into the 120s this morning, Titus. fib, blood pressure 140/70, potassium 5.6 yesterday. Objective - Vital Signs Vital signs: Vital Signs Temp 98 F 08/01/17 08:00 Pulse 120 H 08/01/17 08:00 Resp 20 08/01/17 08:00 BP 142/76 08/01/17 08:00 Pulse Ox 92 L 08/01/17 08:00 Intake & Output 07/31/17 08/01/17 08/01/17 18:59 06:59 18:59 Intake Total 360 120 Balance 360 120 Weight 116 kg Intake: Oral 360 120 Other: Voiding Method Toilet # Voids 1 1 - Exam PHYSICAL EXAMINATION: HEENT: Head is atraumatic, normocephalic. Pupils equal, round. Neck is supple. There is no elevated jugular venous pressure. HEART EXAMINATION: S1 and S2 irregularly irregular CHEST EXAMINATION:lungs reveal decreased air exchange throughout with wheezing and rhonchi bilaterally. ABDOMEN: Soft, nontender. Bowel sounds are heard. No organomegaly noted. EXTREMITIES: 2+ peripheral pulses with evidence of peripheral edema and no calf tenderness noted. NEUROLOGIC patient is awake, alert and oriented -3. . - Labs CBC & Chem 7: 07/31/17 05:36 07/31/17 05:36 Labs: Abnormal Lab Results - Last 24 Hours (Table) 07/31/17 07/31/17 07/31/17 Range/Units 11:23 16:36 20:51 POC Glucose (mg/dL) 119 H 159 H 131 H (75-99) mg/dL 08/01/17 Range/Units 05:48 POC Glucose (mg/dL) 125 H (75-99) mg/dL Assessment and Plan (1) Chronic a-fib Status: Acute (2) COPD exacerbation Status: Acute (3) Asthma exacerbation Status: Acute (4) HTN (hypertension) Status: Acute Plan: From cardiology's perspective, we'll increase the patient's Cardizem to 90 mg by mouth 3 times a day. Continue Xarelto. DNP note has been reviewed, I agree with a documented findings and plan of care. Patient was seen and examined.
[2017-08-01 11:25] LABS: Glucose,Whole Blood 117 mg/dL (75-99)
[2017-08-01 11:36] LABS: Anion Gap 8 mmol/L; Blood Urea Nitrogen 26 mg/dL (7-17); Carbon Dioxide 30 mmol/L (22-30); Chloride 103 mmol/L (98-107); Glucose 124 mg/dL (74-99); Non-African American GFR(MDRD) >60 (>60 ml/min/1.73 sqM); Potassium 5.2 mmol/L (3.5-5.1); Sodium 141 mmol/L (137-145)
[2017-08-01 11:58] LABS: Basophils # (A) 0.1 k/uL (0-0.2); Basophils % (A) 0 %; CH 28.5; CHCM 30.9; Eosinophils % (A) 0 %; HCT 34.1 % (34.0-46.0); HDW 2.75; HGB 10.3 gm/dL (11.4-16.0); Hypochromasia Slight; Luc # (Auto) 0.14; Luc % (Auto) 1; Lymphocytes # (A) 1.5 k/uL (1.0-4.8); Lymphocytes % (A) 14 %; MCHC 30.1 g/dL (31.0-37.0); MCV 92.8 fL (80.0-100.0); Mean Platelet Volume 7.8; Monocytes # (A) 0.7 k/uL (0-1.0); Monocytes % (A) 6 %; Neutrophils % (A) 79 %; RBC 3.68 m/uL (3.80-5.40); RDW 14.9 % (11.5-15.5); WBC 11.4 k/uL (3.8-10.6); WBC (Perox) 12.25
--- NOTE | 2017-08-01 15:19 | P.CNPUL ---
History of Present Illness Consult date: 08/01/17 Reason for consult: dyspnea History of present illness: A 66-year-old morbidly obese female patient with known history of bronchial asthma who was hospitalized for increased shortness of breath. The patient was getting progressively more dyspneic over the past few days prior to her admission dates. The patient was initially hospitalized on 07/27/2017 and she was in acute asthma exacerbation. She was having respiratory difficulties, she was actively bronchospastic and wheezy and having a harsh cough unable to bring up much of sputum. She felt that her chest was congested however she did not bring up much of sputum. The chest x-ray did not show any significant pulmonary infiltration and there was some limited atelectatic changes in lung bases bilaterally. Since admission, the patient was placed on DuoNeb nebulized treatments around the clock, IV Solu-Medrol and she was also placed on Zithromax. No sputum culture was obtained. Over the past 3-4 days, the patient had been receiving systemic steroids without much of an improvement and based on that a pulmonary consultation was requested. A repeat chest x-ray was done today and it showed some increased pulmonary vascular marking. No clear- cut airspace disease or consolidation. The echocardiogram showed an ejection fraction of 50-55%. No segmental wall motion abnormalities. No significant pulmonary hypertension and affect the PA pressure was mildly elevated at 34 mmHg. No pericardial effusion. No reported aspiration. She has poor dentition. No other complaints otherwise. Note that the patient is morbidly obese. Review of Systems Constitutional: Reports fatigue, Reports weakness, Reports weight gain Eyes: denies blurred vision, denies bulging eye, denies decreased vision Ears: deny: decreased hearing, ear discharge, earache Ears, nose, mouth and throat: Denies headache, Denies sore throat Cardiovascular: Reports dyspnea on exertion, Reports shortness of breath Respiratory: Reports cough, Reports dyspnea, Reports wheezing Gastrointestinal: Denies abdominal pain, Denies diarrhea, Denies nausea, Denies vomiting Genitourinary: Denies dysuria, Denies hematuria Musculoskeletal: Reports low back pain, Reports muscle weakness Musculoskeletal: absent: ankle pain, ankle stiffness, ankle swelling Integumentary: Denies pruritus, Denies rash Neurological: Denies numbness, Denies weakness Psychiatric: Denies anxiety, Denies depression Endocrine: Denies fatigue, Denies weight change Past Medical History Past Medical History: Atrial Fibrillation, CVA/TIA, Fibromyalgia, Hypertension, Rheumatoid Arthritis (RA) Additional Past Medical History / Comment(s): Morbid obesity, bronchial asthma, chronic atrial fibrillation, CVA, fibromyalgia, rheumatoid arthritis, difficulties with falls and gait, Tonia episodes of urine checked infection, chronic urinary incontinence, questionable autoimmune disease exact type has not been accurately specified History of Any Multi-Drug Resistant Organisms: None Reported Past Surgical History: Appendectomy, Cardiac Ablation, Section, Cholecystectomy, Orthopedic Surgery, Tubal Ligation Additional Past Surgical History / Comment(s): X3 C-SECTIONS, LT KNEE-EVACUTION OF HEMATOMA 2015, Past Anesthesia/Blood Transfusion Reactions: No Reported Reaction Smoking Status: Never smoker - Past Family History Mother Family Medical History: Congestive Heart Failure (CHF), CVA/TIA, Diabetes Mellitus, Hypertension Father Family Medical History: Myocardial Infarction ([place]) Sister(s) Family Medical History: Dementia Additional Family Medical History / Comment(s): schizophrenia Brother(s) Family Medical History: AFIB, Coronary Artery Disease (CAD), Dementia Additional Family Medical History / Comment(s): alcoholism, x3 stents Medications and Allergies Home Medications Medication Instructions Recorded Confirmed Type Dapsone 100 mg PO DAILY 06/20/14 07/27/17 History Metoprolol Tartrate [Lopressor] 100 mg PO BID 06/20/14 07/27/17 History sulfaSALAzine [Azulfidine] 500 mg PO Q6H 06/21/14 07/27/17 History Rivaroxaban [Xarelto] 20 mg PO DAILY 02/26/16 07/27/17 History Aspirin EC [Ecotrin Low Dose] 81 mg PO DAILY #30 tablet. 02/28/16 07/27/17 Rx Amitriptyline HCl [Elavil] 10 mg PO HS 02/21/17 07/27/17 History Chlorzoxazone [Parafon Forte Dsc] 500 mg PO TID 02/21/17 07/27/17 History Albuterol Nebulized [Ventolin 2.5 mg INHALATION RT-Q8H PRN 07/27/17 07/27/17 History Nebulized] Diazepam [Valium] 10 mg PO DAILY 07/27/17 07/27/17 History Allergies Allergy/AdvReac Type Severity Reaction Status Date / Time banana Allergy Itching Verified 07/27/17 13:16 codeine Allergy Nausea & Verified 07/27/17 13:16 Vomiting honey Allergy Swelling Verified 07/27/17 13:16 Iodinated Contrast- Oral and Allergy Swelling Verified 07/27/17 13:16 IV Dye [Iodinated Contrast Media - IV Dye] iodine Allergy AVOIDS Verified 07/27/17 13:16 SHELL FISH ALLERGY morphine Allergy Nausea & Verified 07/27/17 13:16 Vomiting piroxicam [From Feldene] Allergy Swelling Verified 07/27/17 13:16 shellfish derived Allergy Swelling Verified 07/27/17 13:16 venom-honey bee Allergy Anaphylaxis Verified 07/27/17 13:16 [bee venom (honey bee)] Physical Exam Vitals: Vital Signs Temp Pulse Pulse Resp BP BP Pulse Ox 08/01/17 12:00 96 08/01/17 11:47 92 08/01/17 08:00 98 F 120 H 20 142/76 92 L 08/01/17 07:35 104 H 08/01/17 07:14 104 H 08/01/17 04:00 97.7 F 124 H 18 159/91 94 L 08/01/17 00:00 97.3 F L 116 H 18 126/83 92 L 07/31/17 21:23 130 H 07/31/17 21:15 129 H 07/31/17 20:00 97.3 F L 131 H 20 139/91 92 L 07/31/17 16:00 97.3 F L 120 H 20 139/97 93 L Intake and Output 08/01/17 08/01/17 08/01/17 06:59 14:59 22:59 Intake Total 120 Balance 120 Intake: Oral 120 Other: Voiding Method Toilet # Voids 1 Weight 116 kg The patient is morbidly obese and she is calm and comfortable. Nonacute distress. She is not using excessive muscle breathing. Resting comfortably in bed.Head exam was generally normal. There was no scleral icterus or corneal arcus. Mucous membranes were moist. Neck is supple and is short and the patient has poor dentition. No oropharyngeal thrush. No with or neck masses. Lungs sounds are diminished bilaterally along with diffuse expiratory wheezes throughout the lung vega bilaterally and there is prolongation of expiratory phase of breathing.Cardiac exam revealed the PMI to be normally situated and sized. The rhythm was regular and no extrasystoles were noted during several minutes of auscultation. The first and second heart sounds were normal and physiologic splitting of the second heart sound was noted. There were no murmurs , rubs, clicks, or gallops. Abdomen is obese soft and organs cannot be accurately palpated. No direct tenderness rebound tenderness or guarding.Examination of the extremities revealed easily palpable radial, femoral and pedal pulses. There was no cyanosis, clubbing or edema. Neurologic exam is within normal and the patient is awake and alert and there is no focal neurological deficit. Skin exam is within normal without any ulcers or wounds. Psychiatric exam is within normal limits. Skeletal exam, the patient has chronic arthritic changes in her knees bilaterally. Scars of previous hematoma evacuation over the left knee area. Range of motion is limited and the patient has weakness in both lower extremities. Results - Laboratory Findings CBC and BMP: 08/01/17 10:56 08/01/17 10:56 PT/INR, D-dimer PT 13.5 sec (9.0-12.0) H 07/27/17 13:15 INR 1.4 (<1.2) H 07/27/17 13:15 Abnormal lab findings: Abnormal Labs 07/27/17 07/27/17 07/27/17 13:15 13:15 13:15 WBC 13.0 H RBC Hgb Hct MCHC Neutrophils # 9.2 H PT 13.5 H INR 1.4 H APTT 35.6 H Potassium Chloride BUN Glucose 111 H POC Glucose (mg/dL) Hemoglobin A1c Total Protein 8.4 H LDL Cholesterol, Calc TSH 07/27/17 07/27/17 07/28/17 13:15 20:37 05:36 WBC RBC Hgb Hct MCHC Neutrophils # PT INR APTT Potassium Chloride BUN 18 H Glucose 160 H POC Glucose (mg/dL) 178 H Hemoglobin A1c 4.1 L Total Protein LDL Cholesterol, Calc 105 H TSH 07/28/17 07/28/17 07/28/17 05:36 06:11 11:25 WBC 12.6 H RBC Hgb Hct MCHC Neutrophils # PT INR APTT Potassium Chloride BUN Glucose POC Glucose (mg/dL) 155 H 145 H Hemoglobin A1c Total Protein LDL Cholesterol, Calc TSH 07/28/17 07/28/17 07/29/17 16:59 20:53 05:46 WBC RBC Hgb Hct MCHC Neutrophils # PT INR APTT Potassium Chloride 108 H BUN 20 H Glucose 142 H POC Glucose (mg/dL) 159 H 143 H Hemoglobin A1c Total Protein LDL Cholesterol, Calc TSH 07/29/17 07/29/17 07/29/17 05:49 11:36 16:38 WBC RBC Hgb Hct MCHC Neutrophils # PT INR APTT Potassium Chloride BUN Glucose POC Glucose (mg/dL) 131 H 119 H 131 H Hemoglobin A1c Total Protein LDL Cholesterol, Calc TSH 07/29/17 07/30/17 07/30/17 21:11 06:21 11:52 WBC RBC Hgb Hct MCHC Neutrophils # PT INR APTT Potassium Chloride BUN Glucose POC Glucose (mg/dL) 117 H 125 H 131 H Hemoglobin A1c Total Protein LDL Cholesterol, Calc TSH 07/30/17 07/30/17 07/31/17 16:53 21:08 05:36 WBC 12.1 H RBC 3.52 L Hgb 10.0 L Hct 33.1 L MCHC 30.4 L Neutrophils # PT INR APTT Potassium Chloride BUN Glucose POC Glucose (mg/dL) 143 H 164 H Hemoglobin A1c Total Protein LDL Cholesterol, Calc TSH 07/31/17 07/31/17 07/31/17 05:36 06:32 11:23 WBC RBC Hgb Hct MCHC Neutrophils # PT INR APTT Potassium 5.6 H Chloride BUN 20 H Glucose 147 H POC Glucose (mg/dL) 150 H 119 H Hemoglobin A1c Total Protein LDL Cholesterol, Calc TSH 07/31/17 07/31/17 08/01/17 16:36 20:51 05:48 WBC RBC Hgb Hct MCHC Neutrophils # PT INR APTT Potassium Chloride BUN Glucose POC Glucose (mg/dL) 159 H 131 H 125 H Hemoglobin A1c Total Protein LDL Cholesterol, Calc TSH 08/01/17 08/01/17 08/01/17 10:56 10:56 11:23 WBC 11.4 H RBC 3.68 L Hgb 10.3 L Hct MCHC 30.1 L Neutrophils # 9.0 H PT INR APTT Potassium 5.2 H Chloride BUN 26 H Glucose 124 H POC Glucose (mg/dL) 117 H Hemoglobin A1c Total Protein LDL Cholesterol, Calc TSH 0.123 L - Diagnostic Findings Chest x-ray: image reviewed Assessment and Plan Plan: Assessment 1 acute bronchial asthma exacerbation with difficulties in breathing, chest tightness, wheezing and ongoing bronchospasm despite being on bronchodilators and systemic dose for the past 3-4 days. Chest x-ray shows some increased pulmonary vascular markings without evidence of any airspace disease or pneumonia. 2 shortness of breath secondary to above 3 obesity 4 chronic atrial fibrillation 5 rheumatoid arthritis 6 degenerative arthritis 7 TIA/CVA, history of 8 hypertension 9 fibromyalgia Plan The patient will be kept on DuoNeb neb last treatments every 4 hours around-the- clock. The patient will be kept on IV Solu-Medrol 40 mg every 8 hours. The patient will be started on a combination of budesonide 0.5 neb last treatment twice a day and Perforomist neb last 2 minutes twice a day. Chest x-ray was reviewed. Continue the Zithromax for now. Continue the current treatment and consider bronchoscopy if there is no improvement in the shortness of breath. Meanwhile, the patient's atrial fibrillation is controlled in terms of her 8 and the patient is on long-term articulation with Xarelto. Rest of the comorbidities of currently inactive and stable. We'll continue to follow.
--- NOTE | 2017-08-01 15:25 | P.PN ---
Subjective Progress note being dictated for Dr. Means Interval history:66-year-old female admitted for asthma exacerbation and A. fib with RVR. Patient is pretty status did improve did improve compared to yesterday and she can use to be tachycardic and continues to have wheezing at this time.. 07/30/2017 Patient can use to have significant wheezing on exam and was switched to oral Cardizem heart rate is still high. 7 12/31/2016 Patient is still wheezing but says she has significant improvement competitors today counseling her continued symptoms and rhonchus breath sounds all consult pulmonary for possibility of bronchoscopy. Patient is comparing of cough, denied any fever, chills, nausea, vomiting, abdominal pain, chest pain. 08/01/2017 received Kayexalate yesterday, potassium improving, down to 5.2. remains in atrial fibrillation, controlled in the low 100s for the most part except with exertion heart rate increases into the 140s for short duration, wheezing is improving. Cardizem increased per cardiology. Chest x-ray pending. Objective - Vital Signs Vital signs: Vital Signs Temp 97.5 F L 08/01/17 12:00 Pulse 110 H 08/01/17 12:00 Resp 20 08/01/17 12:00 BP 126/79 08/01/17 12:00 Pulse Ox 90 L 08/01/17 12:00 Intake & Output 07/31/17 08/01/17 08/01/17 18:59 06:59 18:59 Intake Total 360 120 Balance 360 120 Weight 116 kg Intake: Oral 360 120 Other: Voiding Method Toilet # Voids 1 1 - Exam GENERAL: The patient is alert and oriented x3, not in any acute distress. Well developed, well nourished. HEENT: Pupils are round and equally reacting to light. EOMI. No scleral icterus. No conjunctival pallor. Normocephalic, atraumatic. No pharyngeal erythema. No thyromegaly. CARDIOVASCULAR: S1 and S2 present. No murmurs, rubs, or gallops. Patient has irregular heartbeat tachycardic PULMONARY: Chest is clear to auscultation, no crackles. Expiratory wheezing improved compared to yesterday with fairly good air entry into bilateral lung vega ABDOMEN: Soft, nontender, nondistended, normoactive bowel sounds. No palpable organomegaly. MUSCULOSKELETAL: No joint swelling or deformity. EXTREMITIES: No cyanosis, clubbing, or pedal edema. NEUROLOGICAL: Gross neurological examination did not reveal any focal deficits. SKIN: No rashes. - Labs CBC & Chem 7: 08/01/17 10:56 08/01/17 10:56 Labs: Abnormal Lab Results - Last 24 Hours (Table) 07/31/17 07/31/17 08/01/17 Range/Units 16:36 20:51 05:48 WBC (3.8-10.6) k/uL RBC (3.80-5.40) m/uL Hgb (11.4-16.0) gm/dL MCHC (31.0-37.0) g/dL Neutrophils # (1.3-7.7) k/uL Potassium (3.5-5.1) mmol/L BUN (7-17) mg/dL Glucose (74-99) mg/dL POC Glucose (mg/dL) 159 H 131 H 125 H (75-99) mg/dL TSH (0.465-4.680) mIU/L 08/01/17 08/01/17 08/01/17 Range/Units 10:56 10:56 11:23 WBC 11.4 H (3.8-10.6) k/uL RBC 3.68 L (3.80-5.40) m/uL Hgb 10.3 L (11.4-16.0) gm/dL MCHC 30.1 L (31.0-37.0) g/dL Neutrophils # 9.0 H (1.3-7.7) k/uL Potassium 5.2 H (3.5-5.1) mmol/L BUN 26 H (7-17) mg/dL Glucose 124 H (74-99) mg/dL POC Glucose (mg/dL) 117 H (75-99) mg/dL TSH 0.123 L (0.465-4.680) mIU/L Assessment and Plan Plan: #1 acute hypoxic respiratory failure: Most probably secondary to asthma exacerbation patient appears to have chronic intermittent asthma presently in status asthmaticus continue with Solu-Medrol and inhalational treatments. Significant improvement competitors today we'll cut down the systemic strides #2 probable acute bronchitis for which patient will be on azithromycin no evidence of pneumonia at this point of time. #3 leukocytosis: Reactive in nature. #4 atrial fibrillation with rapid regular rate: We'll continue with anticoagulation consul cardiology continue with beta blake atrial fibrillation is frustrated by hypoxemia #5 hypertension #6 for her arthritis for which patient is on dapsone which will be continued. #7 CVA or TIA in the past Plan: Continue on current medication regime ,monitoring and symptomatic treatment. Low potassium diet. Close monitoring of electrolytes with repeat labs ordered for a.m. Maintain anticoagulation with Xarelto. Discharge planning in progress for tomorrow, pending cardiology clearance. The impression and plan of care has been dictated as directed. : I performed a H&P examination of this patient and discussed the same with the dictator. I agree with the dictator's note. Any additional findings/opinions/ etc. will be noted.
--- NOTE | 2017-08-01 15:26 | XR ---
EXAMINATION TYPE: XR chest 2V DATE OF EXAM: 08/01/2017 COMPARISON: Prior chest x-ray 07/27/2017 HISTORY: Shortness of breath TECHNIQUE: Frontal and lateral views of the chest are obtained. FINDINGS: There is no pleural effusion or pneumothorax seen. Retrocardiac density is present. The c ardiac silhouette size is enlarged. There are overlying cardiac leads and the patient is rotated. T he osseous structures are intact. IMPRESSION: Possible left lower lobe atelectasis, accentuation of heart size could be at least in pa rt due to rotation. Follow-up suggested.
[2017-08-01 16:37] LABS: Glucose,Whole Blood 129 mg/dL (75-99)
[2017-08-01] MEDS: AZITHROMYCIN 500 MG TAB PO SCH (17:16)
[2017-08-01] MEDS: BUDESONIDE 0.5 MG/2 ML NEBU INHALATION SCH (19:05)
[2017-08-01] MEDS: FORMOTEROL FUMARATE 20 MCG/2 ML NEBU INHALATION SCH (19:05)
[2017-08-01] MEDS: AMITRIPTYLINE HCL 10 MG TAB PO SCH (20:58)
[2017-08-01 21:28] LABS: Glucose,Whole Blood 178 mg/dL (75-99)
[2017-08-02] MEDS: SODIUM CHLORIDE 0.9% 1,000 ML IV SCH ×3 (04:50→22:44)
[2017-08-02 06:15] LABS: Glucose,Whole Blood 113 mg/dL (75-99)
[2017-08-02] MEDS: INSULIN LISPRO (humaLOG) 300 UNIT/3 ML VIAL SQ SCH ×4 (06:43→22:44)
[2017-08-02] MEDS: RIVAROXABAN 10 MG TAB PO SCH (06:44)
[2017-08-02] MEDS: sulfaSALAzine 500 MG TAB PO SCH ×4 (06:44→23:28)
[2017-08-02] MEDS: FORMOTEROL FUMARATE 20 MCG/2 ML NEBU INHALATION SCH ×2 (08:05→20:04)
[2017-08-02] MEDS: BUDESONIDE 0.5 MG/2 ML NEBU INHALATION SCH ×2 (08:05→20:04)
[2017-08-02] MEDS: IPRATROPIUM-ALBUTEROL 3 ML NEB INHALATION PRN ×4 (08:06→20:04)
[2017-08-02] MEDS: ASPIRIN 81 MG PO SCH (09:13)
[2017-08-02] MEDS: methylPREDNISolone SOD SUCCI 40 MG/ML 1 ML VIAL IV SCH ×3 (09:13→23:28)
[2017-08-02] MEDS: DIAZEPAM 5 MG TAB PO SCH (09:13)
[2017-08-02] MEDS: DILTIAZEM ORAL 60 MG TAB PO SCH (09:14)
[2017-08-02] MEDS: CYCLOBENZAPRINE 5 MG TAB PO SCH ×3 (09:14→20:39)
[2017-08-02] MEDS: DAPSONE 25 MG TAB PO SCH (09:14)
[2017-08-02] MEDS: METOPROLOL TARTRATE 50 MG TAB PO SCH ×2 (09:15→20:39)
[2017-08-02 09:44] LABS: Basophils % (A) 0 %; CH 28.5; CHCM 31.2; Eosinophils % (A) 0 %; HCT 33.2 % (34.0-46.0); HDW 2.76; HGB 10.2 gm/dL (11.4-16.0); Hypochromasia Slight; Immature Gran Flag Marked; Luc # (Auto) 0.12; Luc % (Auto) 1; Lymphocytes # (A) 0.5 k/uL (1.0-4.8); Lymphocytes % (A) 6 %; MCH 28.3 pg (25.0-35.0); MCHC 30.7 g/dL (31.0-37.0); Mean Platelet Volume 7.8; Monocytes # (A) 0.8 k/uL (0-1.0); Monocytes % (A) 8 %; Neutrophils % (A) 84 %; RBC 3.61 m/uL (3.80-5.40); RDW 15.3 % (11.5-15.5); WBC 9.5 k/uL (3.8-10.6); WBC (Perox) 10.48
[2017-08-02 09:48] LABS: Anion Gap 10 mmol/L; Blood Urea Nitrogen 30 mg/dL (7-17); Calcium 8.6 mg/dL (8.4-10.2); Carbon Dioxide 27 mmol/L (22-30); Chloride 103 mmol/L (98-107); Glucose 141 mg/dL (74-99); Non-African American GFR(MDRD) >60 (>60 ml/min/1.73 sqM); Potassium 4.4 mmol/L (3.5-5.1); Sodium 140 mmol/L (137-145)
--- NOTE | 2017-08-02 10:16 | P.PN ---
Subjective Principal diagnosis: A. fib This is a pleasant 66-year-old female admitted to the hospital with exacerbation of asthma. Cardiology consultation was requested because of atrial fibrillation with rapid ventricular response. Patient was started on Cardizem yesterday by Dr. Lin. Her heart rate this morning is in the 90s to low 100s. We will increase the Cardizem to 60 mg 3 times a day. She is on Xarelto for anticoagulation. Upon examination this morning, patient continues to feel short of breath, she states she is coughing significantly, green to brown sputum. Afebrile. Blood pressure 127/80. White blood cell count 13,000 on admission. Repeat a chest x-ray this morning. 07/22/2017 Patient seen and examined this morning, she needs to cough up significant amounts of green sputum. Afebrile. Heart rate up into the 120s this morning, A. fib, blood pressure 140/70, potassium 5.6 yesterday. 07/23/2017 Patient seen and examined this morning, continues to have persistent cough, much less productive today however. Didn't sleep well through the night last night because of her cough. Repeat chest x-ray revealed left lower lobe atelectasis. Patient seen in consultation by Dr. Mendez yesterday, who felt that the patient has an acute bronchial asthma exacerbation and is treating accordingly. She does continue to be in A. fib, rate under adequate control today. Objective - Vital Signs Vital signs: Vital Signs Temp 97.2 F L 08/02/17 04:00 Pulse 84 08/02/17 08:33 Resp 20 08/02/17 04:00 BP 155/85 08/02/17 04:00 Pulse Ox 95 08/02/17 04:00 Intake & Output 08/01/17 08/02/17 08/02/17 18:59 06:59 18:59 Intake Total 520 100 Balance 520 100 Weight 116.1 kg Intake: IV 100 Sodium Chloride 0.9% 1, 100 000 ml @ 100 mls/hr IV . Q10H [facility] Rx#:[id number] Oral 520 Other: Voiding Method Toilet # Voids 1 1 - Exam PHYSICAL EXAMINATION: HEENT: Head is atraumatic, normocephalic. Pupils equal, round. Neck is supple. There is no elevated jugular venous pressure. HEART EXAMINATION: S1 and S2 irregularly irregular CHEST EXAMINATION:lungs reveal decreased air exchange throughout ABDOMEN: Soft, nontender. Bowel sounds are heard. No organomegaly noted. EXTREMITIES: 2+ peripheral pulses with evidence of peripheral edema and no calf tenderness noted. NEUROLOGIC patient is awake, alert and oriented -3. . - Labs CBC & Chem 7: 08/02/17 09:23 08/02/17 09:23 Labs: Abnormal Lab Results - Last 24 Hours (Table) 08/01/17 08/01/17 08/01/17 Range/Units 10:56 10:56 11:23 WBC 11.4 H (3.8-10.6) k/uL RBC 3.68 L (3.80-5.40) m/uL Hgb 10.3 L (11.4-16.0) gm/dL Hct (34.0-46.0) % MCHC 30.1 L (31.0-37.0) g/dL Neutrophils # 9.0 H (1.3-7.7) k/uL Lymphocytes # (1.0-4.8) k/uL Potassium 5.2 H (3.5-5.1) mmol/L BUN 26 H (7-17) mg/dL Glucose 124 H (74-99) mg/dL POC Glucose (mg/dL) 117 H (75-99) mg/dL TSH 0.123 L (0.465-4.680) mIU/L 08/01/17 08/01/17 08/02/17 Range/Units 16:33 21:25 06:08 WBC (3.8-10.6) k/uL RBC (3.80-5.40) m/uL Hgb (11.4-16.0) gm/dL Hct (34.0-46.0) % MCHC (31.0-37.0) g/dL Neutrophils # (1.3-7.7) k/uL Lymphocytes # (1.0-4.8) k/uL Potassium (3.5-5.1) mmol/L BUN (7-17) mg/dL Glucose (74-99) mg/dL POC Glucose (mg/dL) 129 H 178 H 113 H (75-99) mg/dL TSH (0.465-4.680) mIU/L 08/02/17 08/02/17 Range/Units 09:23 09:23 WBC (3.8-10.6) k/uL RBC 3.61 L (3.80-5.40) m/uL Hgb 10.2 L (11.4-16.0) gm/dL Hct 33.2 L (34.0-46.0) % MCHC 30.7 L (31.0-37.0) g/dL Neutrophils # 8.0 H (1.3-7.7) k/uL Lymphocytes # 0.5 L (1.0-4.8) k/uL Potassium (3.5-5.1) mmol/L BUN 30 H (7-17) mg/dL Glucose 141 H (74-99) mg/dL POC Glucose (mg/dL) (75-99) mg/dL TSH (0.465-4.680) mIU/L Assessment and Plan (1) Chronic a-fib Status: Acute (2) COPD exacerbation Status: Acute (3) Asthma exacerbation Status: Acute (4) HTN (hypertension) Status: Acute (5) Bronchial asthma Status: Acute Plan: From cardiology's perspective, we will continue current dose of calcium channel blake, beta blake, and xarelto. DNP note has been reviewed, I agree with a documented findings and plan of care. Patient was seen and examined.
[2017-08-02] MEDS: HYDROmorphone 1 MG/ML 1 ML SYRINGE IVP PRN ×2 (11:50→17:56)
[2017-08-02 11:58] LABS: Glucose,Whole Blood 124 mg/dL (75-99)
[2017-08-02] MEDS: DOCUSATE 100 MG CAP PO SCH ×2 (12:42→20:39)
--- NOTE | 2017-08-02 13:18 | P.PN ---
Subjective A 66-year-old morbidly obese female patient with known history of bronchial asthma who was hospitalized for increased shortness of breath. The patient was getting progressively more dyspneic over the past few days prior to her admission dates. The patient was initially hospitalized on 07/27/2017 and she was in acute asthma exacerbation. She was having respiratory difficulties, she was actively bronchospastic and wheezy and having a harsh cough unable to bring up much of sputum. She felt that her chest was congested however she did not bring up much of sputum. The chest x-ray did not show any significant pulmonary infiltration and there was some limited atelectatic changes in lung bases bilaterally. Since admission, the patient was placed on DuoNeb nebulized treatments around the clock, IV Solu-Medrol and she was also placed on Zithromax. No sputum culture was obtained. Over the past 3-4 days, the patient had been receiving systemic steroids without much of an improvement and based on that a pulmonary consultation was requested. A repeat chest x-ray was done today and it showed some increased pulmonary vascular marking. No clear- cut airspace disease or consolidation. The echocardiogram showed an ejection fraction of 50-55%. No segmental wall motion abnormalities. No significant pulmonary hypertension and affect the PA pressure was mildly elevated at 34 mmHg. No pericardial effusion. No reported aspiration. She has poor dentition. No other complaints otherwise. Note that the patient is morbidly obese. On 08/02/2017 the patient is feeling slightly better compared to yesterday. Based on my evaluation yesterday the patient declined having a bronchoscopy. I added budesonide and Perforomist neb last treatment twice a day. She is also receiving IV Solu Medrol. She is also on DuoNeb the breast units around-the- clock. She is on empiric antibiotic coverage with Zithromax. She has a congested cough although improved compared to yesterday. No hemoptysis no pleurisy. Chest x-ray showed some mild pulmonary vascular congestion. No aspiration has been noted Objective - Vital Signs Vital signs: Vital Signs Temp 98 F 08/02/17 12:00 Pulse 88 08/02/17 12:03 Resp 20 08/02/17 12:00 BP 140/96 08/02/17 12:00 Pulse Ox 94 L 08/02/17 12:00 Intake & Output 08/01/17 08/02/1717 18:59 06:59 18:59 Intake Total 520 100 240 Balance 520 100 240 Weight 116.1 kg Intake: IV 100 Sodium Chloride 0.9% 1, 100 000 ml @ 100 mls/hr IV . Q[facility]H [facility] Rx#:[id number] Oral 520 240 Other: Voiding Method Toilet Toilet Diaper # Voids 1 1 - Exam The patient is morbidly obese and she is calm and comfortable. Nonacute distress. She is not using excessive muscle breathing. Resting comfortably in bed.Head exam was generally normal. There was no scleral icterus or corneal arcus. Mucous membranes were moist. Neck is supple and is short and the patient has poor dentition. No oropharyngeal thrush. No with or neck masses. Lungs sounds are diminished bilaterally along with diffuse expiratory wheezes throughout the lung vega bilaterally and there is prolongation of expiratory phase of breathing.Cardiac exam revealed the PMI to be normally situated and sized. The rhythm was regular and no extrasystoles were noted during several minutes of auscultation. The first and second heart sounds were normal and physiologic splitting of the second heart sound was noted. There were no murmurs , rubs, clicks, or gallops. Abdomen is obese soft and organs cannot be accurately palpated. No direct tenderness rebound tenderness or guarding.Examination of the extremities revealed easily palpable radial, femoral and pedal pulses. There was no cyanosis, clubbing or edema. Neurologic exam is within normal and the patient is awake and alert and there is no focal neurological deficit. Skin exam is within normal without any ulcers or wounds. Psychiatric exam is within normal limits. Skeletal exam, the patient has chronic arthritic changes in her knees bilaterally. Scars of previous hematoma evacuation over the left knee area. Range of motion is limited and the patient has weakness in both lower extremities. - Labs CBC & Chem 7: 08/02/17 09:23 08/02/17 09:23 Labs: Abnormal Lab Results - Last 24 Hours (Table) 08/01/17 08/01/17 08/02/17 Range/Units 16:33 21:25 06:08 RBC (3.80-5.40) m/uL Hgb (11.4-16.0) gm/dL Hct (34.0-46.0) % MCHC (31.0-37.0) g/dL Neutrophils # (1.3-7.7) k/uL Lymphocytes # (1.0-4.8) k/uL BUN (7-17) mg/dL Glucose (74-99) mg/dL POC Glucose (mg/dL) 129 H 178 H 113 H (75-99) mg/dL 08/02/17 08/02/17 08/02/17 Range/Units 09:23 09:23 11:45 RBC 3.61 L (3.80-5.40) m/uL Hgb 10.2 L (11.4-16.0) gm/dL Hct 33.2 L (34.0-46.0) % MCHC 30.7 L (31.0-37.0) g/dL Neutrophils # 8.0 H (1.3-7.7) k/uL Lymphocytes # 0.5 L (1.0-4.8) k/uL BUN 30 H (7-17) mg/dL Glucose 141 H (74-99) mg/dL POC Glucose (mg/dL) 124 H (75-99) mg/dL Assessment and Plan Plan: Assessment 1 acute bronchial asthma exacerbation with difficulties in breathing, chest tightness, wheezing and ongoing bronchospasm despite being on bronchodilators and systemic dose for the past 3-4 days. Chest x-ray shows some increased pulmonary vascular markings without evidence of any airspace disease or pneumonia. On 08/02/2017 the patient has no evidence of pneumonia. She has some mild four- vessel congestion. The patient is on IV Solu-Medrol. The patient is on a combination of DuoNeb nebulized treatments around the clock in addition to Perforomist and Pulmicort neb last 2 minutes twice a day. She reports some modest clinical improvement compared to yesterday. 2 shortness of breath secondary to above 3 obesity 4 chronic atrial fibrillation 5 rheumatoid arthritis 6 degenerative arthritis 7 TIA/CVA, history of 8 hypertension 9 fibromyalgia Plan The patient will be kept on DuoNeb neb last treatments every 4 hours around-the- clock. The patient will be kept on IV Solu-Medrol 40 mg every 8 hours. The patient will be started on a combination of budesonide 0.5 neb last treatment twice a day and Perforomist neb last 2 minutes twice a day. Chest x-ray was reviewed. The patient is improving. No plans for bronchoscopy. We'll give the patient another 24 hours with the current treatment and reevaluate in a.m.
--- NOTE | 2017-08-02 16:25 | P.PN ---
Subjective Progress note being dictated for Dr. Means Interval history:66-year-old female admitted for asthma exacerbation and A. fib with RVR. Patient is pretty status did improve did improve compared to yesterday and she can use to be tachycardic and continues to have wheezing at this time.. 07/30/2017 Patient can use to have significant wheezing on exam and was switched to oral Cardizem heart rate is still high. 7 12/31/2016 Patient is still wheezing but says she has significant improvement competitors today counseling her continued symptoms and rhonchus breath sounds all consult pulmonary for possibility of bronchoscopy. Patient is comparing of cough, denied any fever, chills, nausea, vomiting, abdominal pain, chest pain. 08/01/2017 received Kayexalate yesterday, potassium improving, down to 5.2. remains in atrial fibrillation, controlled in the low 100s for the most part except with exertion heart rate increases into the 140s for short duration, wheezing is improving. Cardizem increased per cardiology. Chest x-ray pending. 08/02/2017 maintained on IV steroids,ATC nebulized bronchodilators and antibiotics. breathing and cough improved, oxygen weaned down to 2 L, maintaining O2 sats of 95%. Chest x-ray reporting left lower lobe atelectasis. Potassium normalized. Objective - Vital Signs Vital signs: Vital Signs Temp 98 F 08/02/17 12:00 Pulse 84 08/02/17 15:15 Resp 20 08/02/17 12:00 BP 140/96 08/02/17 12:00 Pulse Ox 94 L 08/02/17 12:00 Intake & Output 08/01/17 08/02/17 08/02/17 18:59 06:59 18:59 Intake Total 751 110 3231 Balance 050 599 8563 Weight 116.1 kg Intake: IV 100 100 Sodium Chloride 0.9% 1, 100 100 000 ml @ 100 mls/hr IV . Q10H [facility] Rx#:[id number] Oral 520 1320 Other: Voiding Method Toilet Toilet Diaper # Voids 1 1 2 - Exam GENERAL: The patient is alert and oriented x3, not in any acute distress. Well developed, well nourished. HEENT: Pupils are round and equally reacting to light. EOMI. No scleral icterus. No conjunctival pallor. Normocephalic, atraumatic. No pharyngeal erythema. No thyromegaly. CARDIOVASCULAR: S1 and S2 present. No murmurs, rubs, or gallops. Patient has irregular heartbeat tachycardic PULMONARY: Chest is clear to auscultation, no crackles. Fine Expiratory wheezing with fairly good air entry into bilateral lung vega ABDOMEN: Soft, nontender, nondistended, normoactive bowel sounds. No palpable organomegaly. MUSCULOSKELETAL: No joint swelling or deformity. EXTREMITIES: No cyanosis, clubbing, or pedal edema. NEUROLOGICAL: Gross neurological examination did not reveal any focal deficits. SKIN: No rashes. - Labs CBC & Chem 7: 08/02/17 09:23 08/02/17 09:23 Labs: Abnormal Lab Results - Last 24 Hours (Table) 08/01/17 08/01/17 08/02/17 Range/Units 16:33 21:25 06:08 RBC (3.80-5.40) m/uL Hgb (11.4-16.0) gm/dL Hct (34.0-46.0) % MCHC (31.0-37.0) g/dL Neutrophils # (1.3-7.7) k/uL Lymphocytes # (1.0-4.8) k/uL BUN (7-17) mg/dL Glucose (74-99) mg/dL POC Glucose (mg/dL) 129 H 178 H 113 H (75-99) mg/dL 08/02/17 08/02/17 08/02/17 Range/Units 09:23 09:23 11:45 RBC 3.61 L (3.80-5.40) m/uL Hgb 10.2 L (11.4-16.0) gm/dL Hct 33.2 L (34.0-46.0) % MCHC 30.7 L (31.0-37.0) g/dL Neutrophils # 8.0 H (1.3-7.7) k/uL Lymphocytes # 0.5 L (1.0-4.8) k/uL BUN 30 H (7-17) mg/dL Glucose 141 H (74-99) mg/dL POC Glucose (mg/dL) 124 H (75-99) mg/dL Assessment and Plan Plan: #1 acute hypoxic respiratory failure secondary to asthma exacerbation #2 probable acute bronchitis #3 atrial fibrillation with rapid regular rate #4 hypertension Plan: Continue on current medication regime , calcium channel blake, beta blake, Xarelto monitoring and symptomatic treatment. Maintain nebulized broncho-dilators, IV steroids and antibiotics No bronchoscopy at this time as per pulmonary. Close monitoring of electrolytes with repeat labs ordered for a.m. discharge planning in for tomorrow pending pulmonary clearance. The impression and plan of care has been dictated as directed. : I performed a H&P examination of this patient and discussed the same with the dictator. I agree with the dictator's note. Any additional findings/opinions/ etc. will be noted.
[2017-08-02 16:36] LABS: Glucose,Whole Blood 160 mg/dL (75-99)
[2017-08-02] MEDS: DILTIAZEM ORAL 30 MG TAB PO SCH ×2 (17:19→20:38)
[2017-08-02] MEDS: AZITHROMYCIN 500 MG TAB PO SCH (17:20)
[2017-08-02] MEDS: AMITRIPTYLINE HCL 10 MG TAB PO SCH (20:39)
[2017-08-02 20:47] LABS: Glucose,Whole Blood 151 mg/dL (75-99)
[2017-08-03] MEDS: HYDROmorphone 1 MG/ML 1 ML SYRINGE IVP PRN ×3 (05:40→21:32)
[2017-08-03 06:09] LABS: Glucose,Whole Blood 131 mg/dL (75-99)
[2017-08-03] MEDS: RIVAROXABAN 10 MG TAB PO SCH (06:52)
[2017-08-03] MEDS: sulfaSALAzine 500 MG TAB PO SCH ×4 (06:53→23:38)
[2017-08-03] MEDS: SODIUM CHLORIDE 0.9% 1,000 ML IV SCH ×2 (06:53→18:06)
[2017-08-03] MEDS: INSULIN LISPRO (humaLOG) 300 UNIT/3 ML VIAL SQ SCH ×4 (06:53→21:30)
[2017-08-03] MEDS: ASPIRIN 81 MG PO SCH (08:03)
[2017-08-03] MEDS: DOCUSATE 100 MG CAP PO SCH ×2 (08:03→21:32)
[2017-08-03] MEDS: CYCLOBENZAPRINE 5 MG TAB PO SCH ×3 (08:03→21:32)
[2017-08-03] MEDS: DAPSONE 25 MG TAB PO SCH (08:03)
[2017-08-03] MEDS: METOPROLOL TARTRATE 50 MG TAB PO SCH ×2 (08:03→21:31)
[2017-08-03] MEDS: methylPREDNISolone SOD SUCCI 40 MG/ML 1 ML VIAL IV SCH ×3 (08:03→23:40)
[2017-08-03] MEDS: DILTIAZEM ORAL 30 MG TAB PO SCH ×3 (08:04→21:31)
[2017-08-03] MEDS: DIAZEPAM 5 MG TAB PO SCH (08:08)
[2017-08-03] MEDS: FORMOTEROL FUMARATE 20 MCG/2 ML NEBU INHALATION SCH ×2 (08:47→19:48)
[2017-08-03] MEDS: IPRATROPIUM-ALBUTEROL 3 ML NEB INHALATION PRN ×4 (08:47→19:48)
[2017-08-03] MEDS: BUDESONIDE 0.5 MG/2 ML NEBU INHALATION SCH ×2 (08:47→19:48)
[2017-08-03 11:41] LABS: Glucose,Whole Blood 127 mg/dL (75-99)
[2017-08-03 13:37] VITALS: BMI 44.9
--- NOTE | 2017-08-03 13:38 | P.PN ---
Subjective A 66-year-old morbidly obese female patient with known history of bronchial asthma who was hospitalized for increased shortness of breath. The patient was getting progressively more dyspneic over the past few days prior to her admission dates. The patient was initially hospitalized on 07/27/2017 and she was in acute asthma exacerbation. She was having respiratory difficulties, she was actively bronchospastic and wheezy and having a harsh cough unable to bring up much of sputum. She felt that her chest was congested however she did not bring up much of sputum. The chest x-ray did not show any significant pulmonary infiltration and there was some limited atelectatic changes in lung bases bilaterally. Since admission, the patient was placed on DuoNeb nebulized treatments around the clock, IV Solu-Medrol and she was also placed on Zithromax. No sputum culture was obtained. Over the past 3-4 days, the patient had been receiving systemic steroids without much of an improvement and based on that a pulmonary consultation was requested. A repeat chest x-ray was done today and it showed some increased pulmonary vascular marking. No clear- cut airspace disease or consolidation. The echocardiogram showed an ejection fraction of 50-55%. No segmental wall motion abnormalities. No significant pulmonary hypertension and affect the PA pressure was mildly elevated at 34 mmHg. No pericardial effusion. No reported aspiration. She has poor dentition. No other complaints otherwise. Note that the patient is morbidly obese. On 08/02/2017 the patient is feeling slightly better compared to yesterday. Based on my evaluation yesterday the patient declined having a bronchoscopy. I added budesonide and Perforomist neb last treatment twice a day. She is also receiving IV Solu Medrol. She is also on DuoNeb the breast units around-the- clock. She is on empiric antibiotic coverage with Zithromax. She has a congested cough although improved compared to yesterday. No hemoptysis no pleurisy. Chest x-ray showed some mild pulmonary vascular congestion. No aspiration has been noted On 08/03/2017 I'm seeing this patient for a follow-up. The patient is doing better. She is less short of breath compared to yesterday. I think she is gradually improving as the patient is found to be less bronchospastic and wheezy. She remains on systemic steroids. She is also on a combination of budesonide and Perforomist neb last treatment twice a day and albuterol and Atrovent about treatments 4 times a day. No angina. No chest pain. No aspiration noted. She is tolerating her diet. Objective - Vital Signs Vital signs: Vital Signs Temp 98.8 F 08/03/17 12:00 Pulse 98 08/03/17 12:33 Resp 18 08/03/17 12:00 BP 125/78 08/03/17 12:00 Pulse Ox 92 L 08/03/17 12:00 Intake & Output 08/02/17 08/03/17 08/03/17 18:59 06:59 18:59 Intake Total 1420 410 240 Balance 1420 410 240 Weight 115.1 kg Intake: IV 100 Sodium Chloride 0.9% 1, 100 000 ml @ 100 mls/hr IV . Q10H [facility] Rx#:[id number] Oral 1320 410 240 Other: Voiding Method Toilet Toilet Diaper Diaper # Voids 2 1 1 # Bowel Movements 1 - Exam The patient is morbidly obese and she is calm and comfortable. Nonacute distress. She is not using excessive muscle breathing. Resting comfortably in bed.Head exam was generally normal. There was no scleral icterus or corneal arcus. Mucous membranes were moist. Neck is supple and is short and the patient has poor dentition. No oropharyngeal thrush. No with or neck masses. Lungs sounds are diminished bilaterally along with diffuse expiratory wheezes throughout the lung vega bilaterally and there is prolongation of expiratory phase of breathing.Cardiac exam revealed the PMI to be normally situated and sized. The rhythm was regular and no extrasystoles were noted during several minutes of auscultation. The first and second heart sounds were normal and physiologic splitting of the second heart sound was noted. There were no murmurs , rubs, clicks, or gallops. Abdomen is obese soft and organs cannot be accurately palpated. No direct tenderness rebound tenderness or guarding.Examination of the extremities revealed easily palpable radial, femoral and pedal pulses. There was no cyanosis, clubbing or edema. Neurologic exam is within normal and the patient is awake and alert and there is no focal neurological deficit. Skin exam is within normal without any ulcers or wounds. Psychiatric exam is within normal limits. Skeletal exam, the patient has chronic arthritic changes in her knees bilaterally. Scars of previous hematoma evacuation over the left knee area. Range of motion is limited and the patient has weakness in both lower extremities. - Labs CBC & Chem 7: 08/02/17 09:23 08/02/17 09:23 Labs: Abnormal Lab Results - Last 24 Hours (Table) 08/02/17 08/02/17 08/03/17 Range/Units 16:31 20:45 06:06 POC Glucose (mg/dL) 160 H 151 H 131 H (75-99) mg/dL 08/03/17 Range/Units 11:30 POC Glucose (mg/dL) 127 H (75-99) mg/dL Assessment and Plan Plan: Assessment 1 acute bronchial asthma exacerbation with difficulties in breathing, chest tightness, wheezing and ongoing bronchospasm despite being on bronchodilators and systemic dose for the past 3-4 days. Chest x-ray shows some increased pulmonary vascular markings without evidence of any airspace disease or pneumonia. On 08/02/2017 the patient has no evidence of pneumonia. She has some mild four- vessel congestion. The patient is on IV Solu-Medrol. The patient is on a combination of DuoNeb nebulized treatments around the clock in addition to Perforomist and Pulmicort neb last 2 minutes twice a day. She reports some modest clinical improvement compared to yesterday. On 08/03/2017 the patient continues to show some signs of improvement in her chest last bronchus spastic and wheezy compared to yesterday. She has no specific complaints for now. 2 shortness of breath secondary to above 3 obesity 4 chronic atrial fibrillation 5 rheumatoid arthritis 6 degenerative arthritis 7 TIA/CVA, history of 8 hypertension 9 fibromyalgia Plan We'll continue the same treatment plan with the intention of switching this patient to oral prednisone burst taper over the next 34 hours. Rest of the treatment will be kept unchanged. Clinically improved. It final chest x-ray but obtain for tomorrow. We'll continue to follow. Discharge planning is in progress. Encourage the patient increased level of activity as tolerated.
[2017-08-03 16:54] LABS: Glucose,Whole Blood 170 mg/dL (75-99)
--- NOTE | 2017-08-03 17:10 | P.PN ---
Subjective Progress note being dictated for Dr. Means Interval history:66-year-old female admitted for asthma exacerbation and A. fib with RVR. Patient is pretty status did improve did improve compared to yesterday and she can use to be tachycardic and continues to have wheezing at this time.. 07/30/2017 Patient can use to have significant wheezing on exam and was switched to oral Cardizem heart rate is still high. 7 12/31/2016 Patient is still wheezing but says she has significant improvement competitors today counseling her continued symptoms and rhonchus breath sounds all consult pulmonary for possibility of bronchoscopy. Patient is comparing of cough, denied any fever, chills, nausea, vomiting, abdominal pain, chest pain. 08/01/2017 received Kayexalate yesterday, potassium improving, down to 5.2. remains in atrial fibrillation, controlled in the low 100s for the most part except with exertion heart rate increases into the 140s for short duration, wheezing is improving. Cardizem increased per cardiology. Chest x-ray pending. 08/02/2017 maintained on IV steroids,ATC nebulized bronchodilators and antibiotics. breathing and cough improved, oxygen weaned down to 2 L, maintaining O2 sats of 95%. Chest x-ray reporting left lower lobe atelectasis. Potassium normalized. 08/03/2017 maintained on nebulized bronchodilators, systemic steroids .Decreased wheezing, breathing continues to improve. More alert .Good diet intake with no nausea vomiting. Denies chest pain, palpitations or increasing shortness of breath. Telemetry reporting atrial fibrillation, rate controlled, low 100s. Objective - Vital Signs Vital signs: Vital Signs Temp 98.8 F 08/03/17 12:00 Pulse 92 08/03/17 16:24 Resp 18 08/03/17 16:00 BP 125/78 08/03/17 12:00 Pulse Ox 92 L 08/03/17 12:00 Intake & Output 08/02/17 08/03/17 08/03/17 18:59 06:59 18:59 Intake Total 1420 410 240 Balance 1420 410 240 Weight 115.1 kg 115.1 kg Intake: IV 100 Sodium Chloride 0.9% 1, 100 000 ml @ 100 mls/hr IV . Q10H [facility] Rx#:[id number] Oral 1320 410 240 Other: Voiding Method Toilet Toilet Diaper Diaper # Voids 2 1 1 # Bowel Movements 1 - Exam GENERAL: The patient is alert and oriented x3, not in any acute distress. Well developed, well nourished. HEENT: Pupils are round and equally reacting to light. EOMI. No scleral icterus. No conjunctival pallor. Normocephalic, atraumatic. No pharyngeal erythema. No thyromegaly. CARDIOVASCULAR: S1 and S2 present. No murmurs, rubs, or gallops. Patient has irregular heartbeat tachycardic PULMONARY: Chest is clear to auscultation, no crackles. Fine ,diffuse Expiratory wheezing with fairly good air entry into bilateral lung vega ABDOMEN: Soft, nontender, nondistended, normoactive bowel sounds. No palpable organomegaly. MUSCULOSKELETAL: No joint swelling or deformity. EXTREMITIES: No cyanosis, clubbing, or pedal edema. NEUROLOGICAL: Gross neurological examination did not reveal any focal deficits. SKIN: No rashes. - Labs CBC & Chem 7: 08/02/17 09:23 08/02/17 09:23 Labs: Abnormal Lab Results - Last 24 Hours (Table) 08/02/17 08/03/17 08/03/17 Range/Units 20:45 06:06 11:30 POC Glucose (mg/dL) 151 H 131 H 127 H (75-99) mg/dL 08/03/17 Range/Units 16:27 POC Glucose (mg/dL) 170 H (75-99) mg/dL Assessment and Plan Plan: #1 acute hypoxic respiratory failure secondary to asthma exacerbation #2 probable acute bronchitis #3 atrial fibrillation with rapid regular rate #4 hypertension Plan: Continue on current medication regime , calcium channel blake, beta blake, Xarelto monitoring and symptomatic treatment. Steroid tapering as per pulmonary. Chest x-ray in a.m. Maintain nebulized broncho-dilators, steroids and antibiotics. Close monitoring of electrolytes with repeat labs ordered for a.m. increase ambulation as tolerated. discharge planning in for tomorrow pending pulmonary clearance. The impression and plan of care has been dictated as directed. : I performed a H&P examination of this patient and discussed the same with the dictator. I agree with the dictator's note. Any additional findings/opinions/ etc. will be noted.
[2017-08-03] MEDS: AZITHROMYCIN 500 MG TAB PO SCH (18:10)
[2017-08-03 21:18] LABS: Glucose,Whole Blood 134 mg/dL (75-99)
[2017-08-03] MEDS: AMITRIPTYLINE HCL 10 MG TAB PO SCH (21:32)
[2017-08-04] MEDS: SODIUM CHLORIDE 0.9% 1,000 ML IV SCH ×2 (03:58→14:20)
[2017-08-04 06:17] LABS: Glucose,Whole Blood 121 mg/dL (75-99)
[2017-08-04 06:55] LABS: Anisocytosis Slight; CH 28.6; CHCM 30.9; HCT 37.4 % (34.0-46.0); HDW 2.71; HGB 11.6 gm/dL (11.4-16.0); Hypochromasia Slight; Immature Gran Flag Marked; MCH 28.9 pg (25.0-35.0); MCHC 31.1 g/dL (31.0-37.0); MCV 93.2 fL (80.0-100.0); Mean Platelet Volume 7.8; RBC 4.02 m/uL (3.80-5.40); RDW 16.2 % (11.5-15.5); WBC 10.4 k/uL (3.8-10.6); WBC (Perox) 10.72
[2017-08-04] MEDS: INSULIN LISPRO (humaLOG) 300 UNIT/3 ML VIAL SQ SCH ×4 (07:04→22:20)
[2017-08-04 07:05] LABS: Anion Gap 7 mmol/L; Calcium 8.7 mg/dL (8.4-10.2); Carbon Dioxide 31 mmol/L (22-30); Chloride 101 mmol/L (98-107); Glucose 123 mg/dL (74-99); Non-African American GFR(MDRD) >60 (>60 ml/min/1.73 sqM); Sodium 139 mmol/L (137-145)
[2017-08-04] MEDS: sulfaSALAzine 500 MG TAB PO SCH ×4 (07:05→22:28)
[2017-08-04] MEDS: RIVAROXABAN 10 MG TAB PO SCH (07:06)
[2017-08-04 07:12] LABS: Add Differential Manual Differential
[2017-08-04 07:13] LABS: Blood Urea Nitrogen 38 mg/dL (7-17); Potassium 5.7 mmol/L (3.5-5.1)
[2017-08-04] MEDS: HYDROmorphone 1 MG/ML 1 ML SYRINGE IVP PRN ×3 (07:13→16:11)
[2017-08-04 08:35] LABS: Band Neutrophils % 2 %; Metamyelocytes % 2 %; Myelocytes % 6 %; Nucleated Red Blood Cells 0 /100 WBC (0-0); Total Cells Counted 200
[2017-08-04 08:36] LABS: Manual Review Performed
[2017-08-04 08:37] LABS: Polychromasia Present
[2017-08-04] MEDS: DIAZEPAM 5 MG TAB PO SCH (08:37)
[2017-08-04] MEDS: ASPIRIN 81 MG PO SCH (08:38)
[2017-08-04] MEDS: methylPREDNISolone SOD SUCCI 40 MG/ML 1 ML VIAL IV SCH ×4 (08:38→22:28)
[2017-08-04] MEDS: DOCUSATE 100 MG CAP PO SCH ×2 (08:38→22:28)
[2017-08-04] MEDS: CYCLOBENZAPRINE 5 MG TAB PO SCH ×3 (08:38→22:20)
[2017-08-04] MEDS: METOPROLOL TARTRATE 50 MG TAB PO SCH ×2 (08:38→22:19)
[2017-08-04] MEDS: DAPSONE 25 MG TAB PO SCH (08:38)
[2017-08-04] MEDS: DILTIAZEM ORAL 30 MG TAB PO SCH ×3 (08:38→22:19)
--- NOTE | 2017-08-04 08:39 | XR ---
EXAMINATION TYPE: XR chest 1V portable DATE OF EXAM: 08/04/2017 COMPARISON: 08/01/2017 HISTORY: COPD and shortness of breath TECHNIQUE: Single frontal view of the chest is obtained. FINDINGS: Persistent retrocardiac density is seen. Right lung remains clear. The mediastinal silhoue tte is within normal limits. No evidence of pulmonary vascular congestion. Mild degenerative changes of the thoracic spine and acromioclavicular joints. IMPRESSION: Persistent retrocardiac density, most likely related to left subsegmental atelectasis.
[2017-08-04] MEDS: BUDESONIDE 0.5 MG/2 ML NEBU INHALATION SCH ×2 (10:50→19:32)
[2017-08-04] MEDS: FORMOTEROL FUMARATE 20 MCG/2 ML NEBU INHALATION SCH ×2 (10:50→19:32)
[2017-08-04] MEDS: IPRATROPIUM-ALBUTEROL 3 ML NEB INHALATION PRN ×3 (10:51→19:32)
[2017-08-04 11:36] LABS: Glucose,Whole Blood 123 mg/dL (75-99)
[2017-08-04] MEDS ORDERED: SODIUM POLYSTYRENE SULFONATE 30 GM/120 ML BOTTLE RECTAL STA (15:47)
[2017-08-04] MEDS ORDERED: SODIUM POLYSTYRENE SULFONATE 15 GM/60 ML BOTTLE PO STA ×2 (15:51→18:25)
--- NOTE | 2017-08-04 15:54 | P.PN ---
Subjective Progress note being dictated for Dr. Means Interval history:66-year-old female admitted for asthma exacerbation and A. fib with RVR. Patient is pretty status did improve did improve compared to yesterday and she can use to be tachycardic and continues to have wheezing at this time.. 07/30/2017 Patient can use to have significant wheezing on exam and was switched to oral Cardizem heart rate is still high. 7 12/31/2016 Patient is still wheezing but says she has significant improvement competitors today counseling her continued symptoms and rhonchus breath sounds all consult pulmonary for possibility of bronchoscopy. Patient is comparing of cough, denied any fever, chills, nausea, vomiting, abdominal pain, chest pain. 08/01/2017 received Kayexalate yesterday, potassium improving, down to 5.2. remains in atrial fibrillation, controlled in the low 100s for the most part except with exertion heart rate increases into the 140s for short duration, wheezing is improving. Cardizem increased per cardiology. Chest x-ray pending. 08/02/2017 maintained on IV steroids,ATC nebulized bronchodilators and antibiotics. breathing and cough improved, oxygen weaned down to 2 L, maintaining O2 sats of 95%. Chest x-ray reporting left lower lobe atelectasis. Potassium normalized. 08/03/2017 maintained on nebulized bronchodilators, systemic steroids .Decreased wheezing, breathing continues to improve. More alert .Good diet intake with no nausea vomiting. Denies chest pain, palpitations or increasing shortness of breath. Telemetry reporting atrial fibrillation, rate controlled, low 100s. 08/04/2017 remains in atrial fibrillation, heart rates ranging from 90s to 140s , currently in the 120s. O2 sat on room air after ambulation 82%. Potassium 5.7. Objective - Vital Signs Vital signs: Vital Signs Temp 96.9 F L 08/04/17 15:11 Pulse 118 H 08/04/17 15:11 Resp 18 08/04/17 15:11 BP 136/94 08/04/17 15:11 Pulse Ox 91 L 08/04/17 15:11 Intake & Output 08/03/17 08/04/17 08/04/17 18:59 06:59 18:59 Intake Total 360 480 Balance 360 480 Weight 115.1 kg 116.1 kg Intake: Oral 360 480 Other: Voiding Method Toilet # Voids 2 1 3 - Exam GENERAL: The patient is alert and oriented x3, not in any acute distress. Well developed, well nourished. HEENT: Pupils are round and equally reacting to light. EOMI. No scleral icterus. No conjunctival pallor. Normocephalic, atraumatic. No pharyngeal erythema. No thyromegaly. CARDIOVASCULAR: S1 and S2 present. No murmurs, rubs, or gallops. Patient has irregular heartbeat tachycardic PULMONARY: Chest is clear to auscultation, no crackles. Fine ,diffuse Expiratory wheezing with fairly good air entry into bilateral lung vega ABDOMEN: Soft, nontender, nondistended, normoactive bowel sounds. No palpable organomegaly. MUSCULOSKELETAL: No joint swelling or deformity. EXTREMITIES: No cyanosis, clubbing, or pedal edema. NEUROLOGICAL: Gross neurological examination did not reveal any focal deficits. SKIN: No rashes. - Labs CBC & Chem 7: 08/04/17 06:32 08/04/17 06:32 Labs: Abnormal Lab Results - Last 24 Hours (Table) 08/03/17 08/03/17 08/04/17 Range/Units 16:27 21:16 06:06 RDW (11.5-15.5) % Metamyelocytes # (Man) (0) k/uL Myelocytes # (Manual) (0) k/uL Potassium (3.5-5.1) mmol/L Carbon Dioxide (22-30) mmol/L BUN (7-17) mg/dL Glucose (74-99) mg/dL POC Glucose (mg/dL) 170 H 134 H 121 H (75-99) mg/dL 08/04/17 08/04/17 08/04/17 Range/Units 06:32 06:32 11:31 RDW 16.2 H (11.5-15.5) % Metamyelocytes # (Man) 0.21 H (0) k/uL Myelocytes # (Manual) 0.62 H (0) k/uL Potassium 5.7 H (3.5-5.1) mmol/L Carbon Dioxide 31 H (22-30) mmol/L BUN 38 H (7-17) mg/dL Glucose 123 H (74-99) mg/dL POC Glucose (mg/dL) 123 H (75-99) mg/dL Assessment and Plan Plan: #1 acute hypoxic respiratory failure secondary to asthma exacerbation #2 probable acute bronchitis #3 atrial fibrillation with RVR #4 hypertension Plan: Continue on current medication regime , calcium channel blake, beta blake, Xarelto monitoring and symptomatic treatment. Kayexalate ordered. Close monitoring of electrolytes with repeat labs in a.m. Maintain nebulized broncho-dilators, steroids and antibiotics. Further recommendations from cardiology pending. Pulmonary clearance pending. The impression and plan of care has been dictated as directed. : I performed a H&P examination of this patient and discussed the same with the dictator. I agree with the dictator's note. Any additional findings/opinions/ etc. will be noted.
[2017-08-04] MEDS: AZITHROMYCIN 500 MG TAB PO SCH (16:03)
--- NOTE | 2017-08-04 16:30 | P.PN ---
Subjective A 66-year-old morbidly obese female patient with known history of bronchial asthma who was hospitalized for increased shortness of breath. The patient was getting progressively more dyspneic over the past few days prior to her admission dates. The patient was initially hospitalized on 07/27/2017 and she was in acute asthma exacerbation. She was having respiratory difficulties, she was actively bronchospastic and wheezy and having a harsh cough unable to bring up much of sputum. She felt that her chest was congested however she did not bring up much of sputum. The chest x-ray did not show any significant pulmonary infiltration and there was some limited atelectatic changes in lung bases bilaterally. Since admission, the patient was placed on DuoNeb nebulized treatments around the clock, IV Solu-Medrol and she was also placed on Zithromax. No sputum culture was obtained. Over the past 3-4 days, the patient had been receiving systemic steroids without much of an improvement and based on that a pulmonary consultation was requested. A repeat chest x-ray was done today and it showed some increased pulmonary vascular marking. No clear- cut airspace disease or consolidation. The echocardiogram showed an ejection fraction of 50-55%. No segmental wall motion abnormalities. No significant pulmonary hypertension and affect the PA pressure was mildly elevated at 34 mmHg. No pericardial effusion. No reported aspiration. She has poor dentition. No other complaints otherwise. Note that the patient is morbidly obese. On 08/02/2017 the patient is feeling slightly better compared to yesterday. Based on my evaluation yesterday the patient declined having a bronchoscopy. I added budesonide and Perforomist neb last treatment twice a day. She is also receiving IV Solu Medrol. She is also on DuoNeb the breast units around-the- clock. She is on empiric antibiotic coverage with Zithromax. She has a congested cough although improved compared to yesterday. No hemoptysis no pleurisy. Chest x-ray showed some mild pulmonary vascular congestion. No aspiration has been noted On 08/03/2017 I'm seeing this patient for a follow-up. The patient is doing better. She is less short of breath compared to yesterday. I think she is gradually improving as the patient is found to be less bronchospastic and wheezy. She remains on systemic steroids. She is also on a combination of budesonide and Perforomist neb last treatment twice a day and albuterol and Atrovent about treatments 4 times a day. No angina. No chest pain. No aspiration noted. She is tolerating her diet. On 08/04/2017 I'm seeing this patient in follow-up. The patient is less short of breath compared to yesterday. She is not having any magistral difficulties. Acute asthma exacerbation is essentially improved and septal. No cough. No sputum production. No hemoptysis. Mental status is within normal. She is getting out of bed and ambulating. Objective - Vital Signs Vital signs: Vital Signs Temp 96.9 F L 08/04/17 15:11 Pulse 118 H 08/04/17 15:11 Resp 18 08/04/17 15:58 BP 136/94 08/04/17 15:11 Pulse Ox 91 L 08/04/17 15:11 Intake & Output 08/03/17 08/04/17 08/04/17 18:59 06:59 18:59 Intake Total 360 480 Balance 360 480 Weight 115.1 kg 116.1 kg Intake: Oral 360 480 Other: Voiding Method Toilet # Voids 2 1 3 - Exam The patient is morbidly obese and she is calm and comfortable. Nonacute distress. She is not using excessive muscle breathing. Resting comfortably in bed.Head exam was generally normal. There was no scleral icterus or corneal arcus. Mucous membranes were moist. Neck is supple and is short and the patient has poor dentition. No oropharyngeal thrush. No with or neck masses. Lungs sounds are diminished bilaterally along with diffuse expiratory wheezes throughout the lung vega bilaterally and there is prolongation of expiratory phase of breathing.Cardiac exam revealed the PMI to be normally situated and sized. The rhythm was regular and no extrasystoles were noted during several minutes of auscultation. The first and second heart sounds were normal and physiologic splitting of the second heart sound was noted. There were no murmurs , rubs, clicks, or gallops. Abdomen is obese soft and organs cannot be accurately palpated. No direct tenderness rebound tenderness or guarding.Examination of the extremities revealed easily palpable radial, femoral and pedal pulses. There was no cyanosis, clubbing or edema. Neurologic exam is within normal and the patient is awake and alert and there is no focal neurological deficit. Skin exam is within normal without any ulcers or wounds. Psychiatric exam is within normal limits. Skeletal exam, the patient has chronic arthritic changes in her knees bilaterally. Scars of previous hematoma evacuation over the left knee area. Range of motion is limited and the patient has weakness in both lower extremities. - Labs CBC & Chem 7: 08/04/17 06:32 08/04/17 06:32 Labs: Abnormal Lab Results - Last 24 Hours (Table) 08/03/17 08/03/17 08/04/17 Range/Units 16:27 21:16 06:06 RDW (11.5-15.5) % Metamyelocytes # (Man) (0) k/uL Myelocytes # (Manual) (0) k/uL Potassium (3.5-5.1) mmol/L Carbon Dioxide (22-30) mmol/L BUN (7-17) mg/dL Glucose (74-99) mg/dL POC Glucose (mg/dL) 170 H 134 H 121 H (75-99) mg/dL 08/04/17 08/04/17 08/04/17 Range/Units 06:32 06:32 11:31 RDW 16.2 H (11.5-15.5) % Metamyelocytes # (Man) 0.21 H (0) k/uL Myelocytes # (Manual) 0.62 H (0) k/uL Potassium 5.7 H (3.5-5.1) mmol/L Carbon Dioxide 31 H (22-30) mmol/L BUN 38 H (7-17) mg/dL Glucose 123 H (74-99) mg/dL POC Glucose (mg/dL) 123 H (75-99) mg/dL Assessment and Plan Plan: Assessment 1 acute bronchial asthma exacerbation with difficulties in breathing, chest tightness, wheezing and ongoing bronchospasm despite being on bronchodilators and systemic dose for the past 3-4 days. Chest x-ray shows some increased pulmonary vascular markings without evidence of any airspace disease or pneumonia. On 08/02/2017 the patient has no evidence of pneumonia. She has some mild four- vessel congestion. The patient is on IV Solu-Medrol. The patient is on a combination of DuoNeb nebulized treatments around the clock in addition to Perforomist and Pulmicort neb last 2 minutes twice a day. She reports some modest clinical improvement compared to yesterday. On 08/03/2017 the patient continues to show some signs of improvement in her chest last bronchus spastic and wheezy compared to yesterday. She has no specific complaints for now. On 08/04/2017, the patient is improved considerably and discharge planning is in progress. Remains on DuoNeb nebulized treatments, Pulmicort Respules and Perforomist neb last treatment twice a day and Solu-Medrol IV. 2 shortness of breath secondary to above 3 obesity 4 chronic atrial fibrillation 5 rheumatoid arthritis 6 degenerative arthritis 7 TIA/CVA, history of 8 hypertension 9 fibromyalgia Plan May stop the IV Solu Medrol put the patient prednisone burst taper. DuoNeb neb last treatment [id number]. No need for any further antibiotic treatments. Point status stabilized. Discharge planning is in progress. Potassium level was elevated and the patient was given a dose of K glad by the medical team. Continue articulation with Quirino regarding chronic A. fib fibrillation.
[2017-08-04 16:56] LABS: Glucose,Whole Blood 129 mg/dL (75-99)
[2017-08-04 21:01] LABS: Glucose,Whole Blood 144 mg/dL (75-99)
[2017-08-04] MEDS: AMITRIPTYLINE HCL 10 MG TAB PO SCH (22:19)
[2017-08-05] MEDS: SODIUM CHLORIDE 0.9% 1,000 ML IV SCH ×2 (06:58→08:18)
[2017-08-05] MEDS: sulfaSALAzine 500 MG TAB PO SCH ×2 (06:58→11:09)
[2017-08-05 06:59] LABS: Glucose,Whole Blood 135 mg/dL (75-99)
[2017-08-05] MEDS: INSULIN LISPRO (humaLOG) 300 UNIT/3 ML VIAL SQ SCH ×2 (06:59→12:18)
[2017-08-05] MEDS: RIVAROXABAN 10 MG TAB PO SCH (07:00)
[2017-08-05 08:14] LABS: Anion Gap 9 mmol/L; Blood Urea Nitrogen 39 mg/dL (7-17); Calcium 8.6 mg/dL (8.4-10.2); Carbon Dioxide 30 mmol/L (22-30); Chloride 100 mmol/L (98-107); Glucose 117 mg/dL (74-99); Non-African American GFR(MDRD) 58 (>60 ml/min/1.73 sqM); Sodium 139 mmol/L (137-145)
[2017-08-05] MEDS: DOCUSATE 100 MG CAP PO SCH (08:14)
[2017-08-05] MEDS: ASPIRIN 81 MG PO SCH (08:16)
[2017-08-05] MEDS: DAPSONE 25 MG TAB PO SCH (08:16)
[2017-08-05] MEDS: DIAZEPAM 5 MG TAB PO SCH (08:16)
[2017-08-05] MEDS: DILTIAZEM ORAL 30 MG TAB PO SCH (08:16)
[2017-08-05] MEDS: METOPROLOL TARTRATE 50 MG TAB PO SCH (08:16)
[2017-08-05] MEDS: HYDROmorphone 1 MG/ML 1 ML SYRINGE IVP PRN (08:16)
[2017-08-05] MEDS: CYCLOBENZAPRINE 5 MG TAB PO SCH (08:16)
[2017-08-05] MEDS: BUDESONIDE 0.5 MG/2 ML NEBU INHALATION SCH (08:20)
[2017-08-05] MEDS: FORMOTEROL FUMARATE 20 MCG/2 ML NEBU INHALATION SCH (08:20)
[2017-08-05] MEDS: IPRATROPIUM-ALBUTEROL 3 ML NEB INHALATION PRN ×2 (08:20→11:55)
[2017-08-05 08:27] VITALS: TEMP 98.4
[2017-08-05] MEDS ORDERED: guaiFENesin SYRUP 100MG/5ML 200 MG/10 ML CUP PO PRN (10:50)
[2017-08-05 11:13] VITALS: BP 112/88; RESP 16
[2017-08-05 11:39] LABS: Glucose,Whole Blood 95 mg/dL (75-99)
[2017-08-05 11:57] VITALS: PULSE 100
--- NOTE | 2017-08-05 13:49 | P.DS ---
Providers Date of admission: 07/27/17 14:41 Expected date of discharge: 08/05/17 Attending physician: Sosa Means Consults: 07/28/17 14:46 Consult Physician Routine Consulting Provider: Kosta Lin Consult Reason/Comments: A.fib with RVR Do you want consulting provider notified?: Yes 07/31/17 14:35 Consult Physician Routine Consulting Provider: Sushma Mendez Consult Reason/Comments: Asthma exacerbation Do you want consulting provider notified?: Yes Primary care physician: Tri Glover [facility] Hospital Course: Final Diagnoses: #1 acute hypoxic respiratory failure secondary to asthma exacerbation #2 probable acute bronchitis #3 atrial fibrillation with RVR #4 hypertension Hospital course: This is a 66-year-old female admitted for asthma exacerbation and A. fib with RVR. Evaluated by cardiology and pulmonary. Initiated on Cardizem drip, converted to oral. Anticoagulated on Xarelto. Maintained on nebulized bronchodilators, systemic steroids, antibiotics. Weaned off of oxygen , maintaining O2 sats of 92% on room air after ambulation. Remains in atrial fibrillation with rate better controlled ranging in 90s to low 100s. Received Kayexalate for potassium of 5.7, currently down to 5. Significant clinical improvement. Patient has been cleared by all consults for discharge. Patient is being discharged home in a stable condition with guarded prognosis. The impression and plan of care has been dictated as directed as a scribe. : I performed a H&P examination of this patient and discussed the same with the dictator. I agree with the dictator's note. Any additional findings/opinions/ etc. will be noted. Patient Condition at Discharge: Stable Plan - Discharge Summary New Discharge Prescriptions: New Azithromycin [Zithromax] 500 mg PO DAILY@1600 #5 tab Diltiazem Oral [Cardizem*] 90 mg PO TID #90 tab Docusate [Colace] 100 mg PO BID #60 cap predniSONE 10 mg PO DIRECTED #30 tab Ipratropium-Albuterol Nebulize [Duoneb 0.5 mg-3 mg/3 ml Soln] 3 ml INHALATION QID #120 neb Continue Dapsone 100 mg PO DAILY Metoprolol Tartrate [Lopressor] 100 mg PO BID sulfaSALAzine [Azulfidine] 500 mg PO Q6H Rivaroxaban [Xarelto] 20 mg PO DAILY Aspirin EC [Ecotrin Low Dose] 81 mg PO DAILY #30 tablet. Amitriptyline HCl [Elavil] 10 mg PO HS Chlorzoxazone [Parafon Forte Dsc] 500 mg PO TID Diazepam [Valium] 10 mg PO DAILY Changed Albuterol Nebulized [Ventolin Nebulized] 2.5 mg INHALATION Q4H PRN #1 PRN Reason: Shortness Of Breath Discharge Medication List Dapsone 100 mg PO DAILY 06/20/14 [History] Metoprolol Tartrate [Lopressor] 100 mg PO BID 06/20/14 [History] sulfaSALAzine [Azulfidine] 500 mg PO Q6H 06/21/14 [History] Rivaroxaban [Xarelto] 20 mg PO DAILY 02/26/16 [History] Aspirin EC [Ecotrin Low Dose] 81 mg PO DAILY #30 tablet. 02/28/16 [Rx] Amitriptyline HCl [Elavil] 10 mg PO HS 02/21/17 [History] Chlorzoxazone [Parafon Forte Dsc] 500 mg PO TID 02/21/17 [History] Diazepam [Valium] 10 mg PO DAILY 07/27/17 [History] Albuterol Nebulized [Ventolin Nebulized] 2.5 mg INHALATION Q4H PRN #1 08/04/17 [Rx] Azithromycin [Zithromax] 500 mg PO DAILY@1600 #5 tab 08/04/17 [Rx] Diltiazem Oral [Cardizem*] 90 mg PO TID #90 tab 08/04/17 [Rx] Docusate [Colace] 100 mg PO BID #60 cap 08/04/17 [Rx] Ipratropium-Albuterol Nebulize [Duoneb 0.5 mg-3 mg/3 ml Soln] 3 ml INHALATION QID #120 neb 08/04/17 [Rx] predniSONE 10 mg PO DIRECTED #30 tab 08/04/17 [Rx] Follow up Appointment(s)/Referral(s): Oli Stokes MD [STAFF PHYSICIAN] - 2 Weeks (Message left. Office will call with appoinment time) Tri Adames III, MD [Primary Care Provider] - 3 Days (Please call office to schedule appointment) Sushma Mendez MD [STAFF PHYSICIAN] - 08/19/17 1:30 pm Ambulatory/Diagnostic Orders: Complete Blood Count w/diff [LAB.AMB] Time Frame: 3 Days, Location: Determined By Patient Patient Instructions/Handouts: Atrial Fibrillation (DC), Heart Healthy Diet (DC ) Activity/Diet/Wound Care/Special Instructions: activity: Limited until follow up.
--- NOTE | 2017-08-05 15:35 | P.PN ---
Subjective A 66-year-old morbidly obese female patient with known history of bronchial asthma who was hospitalized for increased shortness of breath. The patient was getting progressively more dyspneic over the past few days prior to her admission dates. The patient was initially hospitalized on 07/27/2017 and she was in acute asthma exacerbation. She was having respiratory difficulties, she was actively bronchospastic and wheezy and having a harsh cough unable to bring up much of sputum. She felt that her chest was congested however she did not bring up much of sputum. The chest x-ray did not show any significant pulmonary infiltration and there was some limited atelectatic changes in lung bases bilaterally. Since admission, the patient was placed on DuoNeb nebulized treatments around the clock, IV Solu-Medrol and she was also placed on Zithromax. No sputum culture was obtained. Over the past 3-4 days, the patient had been receiving systemic steroids without much of an improvement and based on that a pulmonary consultation was requested. A repeat chest x-ray was done today and it showed some increased pulmonary vascular marking. No clear- cut airspace disease or consolidation. The echocardiogram showed an ejection fraction of 50-55%. No segmental wall motion abnormalities. No significant pulmonary hypertension and affect the PA pressure was mildly elevated at 34 mmHg. No pericardial effusion. No reported aspiration. She has poor dentition. No other complaints otherwise. Note that the patient is morbidly obese. On 08/02/2017 the patient is feeling slightly better compared to yesterday. Based on my evaluation yesterday the patient declined having a bronchoscopy. I added budesonide and Perforomist neb last treatment twice a day. She is also receiving IV Solu Medrol. She is also on DuoNeb the breast units around-the- clock. She is on empiric antibiotic coverage with Zithromax. She has a congested cough although improved compared to yesterday. No hemoptysis no pleurisy. Chest x-ray showed some mild pulmonary vascular congestion. No aspiration has been noted On 08/03/2017 I'm seeing this patient for a follow-up. The patient is doing better. She is less short of breath compared to yesterday. I think she is gradually improving as the patient is found to be less bronchospastic and wheezy. She remains on systemic steroids. She is also on a combination of budesonide and Perforomist neb last treatment twice a day and albuterol and Atrovent about treatments 4 times a day. No angina. No chest pain. No aspiration noted. She is tolerating her diet. On 08/04/2017 I'm seeing this patient in follow-up. The patient is less short of breath compared to yesterday. She is not having any magistral difficulties. Acute asthma exacerbation is essentially improved and septal. No cough. No sputum production. No hemoptysis. Mental status is within normal. She is getting out of bed and ambulating. On 08/05/2017 the patient is completely normalized and she is not having any major respiratory difficulties and acute asthma exacerbation is essentially resolved. The plan is discharge this patient home today on a prednisone burst taper. She has completed course of antibiotics. She has Ventolin mehrdad last treatment at home. Prednisone burst taper will be also given to him at time of discharge. Objective - Vital Signs Vital signs: Vital Signs Temp 98.4 F 08/05/17 08:23 Pulse 100 08/05/17 12:08 Resp 16 08/05/17 11:13 BP 112/88 08/05/17 11:13 Pulse Ox 91 L 08/05/17 11:13 Intake & Output 08/04/17 08/05/17 08/05/17 18:59 06:59 18:59 Intake Total 780 180 Balance 780 180 Weight 116.2 kg Intake: Oral 780 180 Other: Voiding Method Toilet # Voids 1 1 0 - Exam The patient is morbidly obese and she is calm and comfortable. Nonacute distress. She is not using excessive muscle breathing. Resting comfortably in bed.Head exam was generally normal. There was no scleral icterus or corneal arcus. Mucous membranes were moist. Neck is supple and is short and the patient has poor dentition. No oropharyngeal thrush. No with or neck masses. Lungs sounds are diminished bilaterally yet the wheezing is essentially subsided and the patient is moving adequate breath sounds bilaterally..Cardiac exam revealed the PMI to be normally situated and sized. The rhythm was regular and no extrasystoles were noted during several minutes of auscultation. The first and second heart sounds were normal and physiologic splitting of the second heart sound was noted. There were no murmurs, rubs, clicks, or gallops. Abdomen is obese soft and organs cannot be accurately palpated. No direct tenderness rebound tenderness or guarding.Examination of the extremities revealed easily palpable radial, femoral and pedal pulses. There was no cyanosis , clubbing or edema. Neurologic exam is within normal and the patient is awake and alert and there is no focal neurological deficit. Skin exam is within normal without any ulcers or wounds. Psychiatric exam is within normal limits. Skeletal exam, the patient has chronic arthritic changes in her knees bilaterally. Scars of previous hematoma evacuation over the left knee area. Range of motion is limited and the patient has weakness in both lower extremities. - Labs CBC & Chem 7: 08/04/17 06:32 08/05/17 06:55 Labs: Abnormal Lab Results - Last 24 Hours (Table) 08/04/17 08/04/17 08/05/17 Range/Units 16:52 20:56 06:45 BUN (7-17) mg/dL Glucose (74-99) mg/dL POC Glucose (mg/dL) 129 H 144 H 135 H (75-99) mg/dL 08/05/17 Range/Units 06:55 BUN 39 H (7-17) mg/dL Glucose 117 H (74-99) mg/dL POC Glucose (mg/dL) (75-99) mg/dL Assessment and Plan Plan: Assessment 1 acute bronchial asthma exacerbation with difficulties in breathing, chest tightness, wheezing and ongoing bronchospasm despite being on bronchodilators and systemic dose for the past 3-4 days. Chest x-ray shows some increased pulmonary vascular markings without evidence of any airspace disease or pneumonia. On 08/02/2017 the patient has no evidence of pneumonia. She has some mild four- vessel congestion. The patient is on IV Solu-Medrol. The patient is on a combination of DuoNeb nebulized treatments around the clock in addition to Perforomist and Pulmicort neb last 2 minutes twice a day. She reports some modest clinical improvement compared to yesterday. On 08/03/2017 the patient continues to show some signs of improvement in her chest last bronchus spastic and wheezy compared to yesterday. She has no specific complaints for now. On 08/04/2017, the patient is improved considerably and discharge planning is in progress. Remains on DuoNeb nebulized treatments, Pulmicort Respules and Perforomist neb last treatment twice a day and Solu-Medrol IV. On 08/03/2017, the patient is fully recovered and the patient will be discharged home on a prednisone burst taper. 2 shortness of breath secondary to above 3 obesity 4 chronic atrial fibrillation 5 rheumatoid arthritis 6 degenerative arthritis 7 TIA/CVA, history of 8 hypertension 9 fibromyalgia Plan Discharge the patient home on DuoNeb nebulized treatments around the clock as needed, prednisone burst taper to be followed up on outpatient basis if needed. She is currently stable and back to her baseline.
== END 2017-08-05 14:48 | disposition home or self-care (01) | DRG 202 ==
LOC: EC 12:25 → 6SEL 14:41
PROVIDERS: ADMIT Hospitalist; ATTEND Hospitalist
DX: J45.22 Mild intermittent asthma with status asthmaticus (principal); J96.01 Acute respiratory failure with hypoxia; J44.0 Chronic obstructive pulmonary disease with (acute) lower respiratory infection; J44.1 Chronic obstructive pulmonary disease with (acute) exacerbation; Z68.42 Body mass index [BMI] 45.0-49.9, adult; J98.11 Atelectasis; E66.01 Morbid (severe) obesity due to excess calories; J20.9 Acute bronchitis, unspecified; M19.91 Primary osteoarthritis, unspecified site; M79.7 Fibromyalgia; M06.9 Rheumatoid arthritis, unspecified; I48.2 Chronic atrial fibrillation; F41.9 Anxiety disorder, unspecified; E11.9 Type 2 diabetes mellitus without complications; R32 Unspecified urinary incontinence; I10 Essential (primary) hypertension; Z79.2 Long term (current) use of antibiotics; Z79.01 Long term (current) use of anticoagulants; Z79.82 Long term (current) use of aspirin; Z79.899 Other long term (current) drug therapy; Z86.73 Personal history of transient ischemic attack (TIA), and cerebral infarction without residual deficits; Z91.030 Bee allergy status; Z91.041 Radiographic dye allergy status; Z88.5 Allergy status to narcotic agent; Z91.013 Allergy to seafood; Z88.8 Allergy status to other drugs, medicaments and biological substances; Z91.018 Allergy to other foods
CPT/HCPCS: 36415; 71010; 71020; 80048; 80053; 80061; 82550; 82553; 83036; 83735; 83880; 84443; 84484; 85025; 85027; 85610; 85730; 93005; 93306; 94640; 94760; 96361; 96365; 96375; 99285

== ENCOUNTER → 2017-08-16 | Outpatient (CLI) | payer MEDICARE, BC ==
--- NOTE | 2017-08-16 14:30 | XR ---
EXAMINATION TYPE: XR chest 2V DATE OF EXAM: 08/16/2017 COMPARISON: Prior chest x-ray 08/04/2017 HISTORY: Asthma, shortness of breath TECHNIQUE: Frontal and lateral views of the chest are obtained. FINDINGS: There is no focal air space opacity, pleural effusion, or pneumothorax seen. The cardiac silhouette size is stable accounting for differences in technique, patient is rotated. The osseous structures are intact. IMPRESSION: No acute cardiopulmonary process. Lung volumes are improved as compared to prior exam.
== END ==
LOC: RADXRMAIN 13:14
PROVIDERS: ATTEND Family Medicine
DX: J45.909 Unspecified asthma, uncomplicated (principal)
CPT/HCPCS: 71020

== ENCOUNTER 2017-12-21 14:37 | Emergency (ER) | payer BC, MEDICARE ==
[2017-12-21] MEDS ORDERED: methylPREDNISolone SOD SUCCI 125 MG/2 ML VIAL IV STA (15:19)
[2017-12-21] MEDS ORDERED: IPRATROPIUM 0.5 MG/2.5 ML NEBU INHALATION STA (15:19)
[2017-12-21] MEDS ORDERED: ALBUTEROL NEBULIZED 2.5 MG/3 ML INHALATION STA (15:19)
--- NOTE | 2017-12-21 15:21 | ED ---
General Adult HPI - General Chief complaint: Shortness of Breath Stated complaint: SOB Time Seen by Provider: 12/21/17 14:40 Source: patient, family, RN notes reviewed Mode of arrival: wheelchair Limitations: no limitations - History of Present Illness Initial comments: This is a 67-year-old female presents emergency Department with a past medical history significant for hypertension and COPD per patient comes in today stating that her breathing was worse and she was wheezing. Patient states she had a breathing treatment the doctor's office however that did not improve her shortness of breath. Patient denies any recent fever chills or cough. Patient denies chest pain difficulty breathing. Patient denies abdominal pain patient denies nausea vomiting diarrhea. Patient denies any numbness or weakness. Patient denies any dizziness lightheadedness or near syncopal episode. Patient denies any edema to the legs or calf tenderness. - Related Data Home Medications Medication Instructions Recorded Confirmed Dapsone 100 mg PO DAILY 06/20/14 12/21/17 Metoprolol Tartrate [Lopressor] 100 mg PO BID 06/20/14 12/21/17 Rivaroxaban [Xarelto] 20 mg PO DAILY 02/26/16 12/21/17 Amitriptyline HCl [Elavil] 10 mg PO HS 02/21/17 12/21/17 Chlorzoxazone [Parafon Forte Dsc] 500 mg PO TID PRN 02/21/17 12/21/17 Diazepam [Valium] 10 mg PO DAILY 07/27/17 12/21/17 Budesonide [Pulmicort] 0.5 mg INHALATION RT-BID 12/21/17 12/21/17 Diltiazem HCl 90 mg PO TID 12/21/17 12/21/17 Docusate [Colace] 100 mg PO DAILY PRN 12/21/17 12/21/17 Ipratropium-Albuterol Nebulize 3 ml INHALATION RT-Q6H 12/21/17 12/21/17 [Duoneb 0.5 mg-3 mg/3 ml Soln] Ondansetron Odt [Zofran Odt] 4 mg PO Q8HR PRN 12/21/17 12/21/17 Prevagen Extra Strength 20 mg PO DAILY 12/21/17 12/21/17 Previous Rx's Medication Instructions Recorded Aspirin EC [Ecotrin Low Dose] 81 mg PO DAILY #30 tablet. 02/28/16 predniSONE 40 mg PO DAILY #8 tab 12/21/17 Allergies Allergy/AdvReac Type Severity Reaction Status Date / Time banana Allergy Itching Verified 12/21/17 14:46 codeine Allergy Nausea & Verified 12/21/17 15:43 Vomiting honey Allergy Swelling Verified 12/21/17 15:43 Iodinated Contrast- Oral and Allergy Swelling Verified 12/21/17 14:46 IV Dye [Iodinated Contrast Media - IV Dye] iodine Allergy AVOIDS Verified 12/21/17 14:46 SHELL FISH ALLERGY morphine Allergy Nausea & Verified 12/21/17 14:46 Vomiting piroxicam [From Feldene] Allergy Swelling Verified 12/21/17 15:43 shellfish derived Allergy Swelling Verified 12/21/17 15:43 venom-honey bee Allergy Anaphylaxis Verified 12/21/17 15:43 [bee venom (honey bee)] Review of Systems ROS Statement: Those systems with pertinent positive or pertinent negative responses have been documented in the HPI. ROS Other: All systems not noted in ROS Statement are negative. Past Medical History Past Medical History: Atrial Fibrillation, CVA/TIA, Fibromyalgia, Hypertension, Rheumatoid Arthritis (RA) Additional Past Medical History / Comment(s): Morbid obesity, bronchial asthma, chronic atrial fibrillation, CVA, fibromyalgia, rheumatoid arthritis, difficulties with falls and gait, Tonia episodes of urine checked infection, chronic urinary incontinence, questionable autoimmune disease exact type has not been accurately specified History of Any Multi-Drug Resistant Organisms: None Reported Past Surgical History: Appendectomy, Cardiac Ablation, Section, Cholecystectomy, Orthopedic Surgery, Tubal Ligation Additional Past Surgical History / Comment(s): X3 C-SECTIONS, LT KNEE-EVACUTION OF HEMATOMA 2015, Past Anesthesia/Blood Transfusion Reactions: No Reported Reaction Past Psychological History: Anxiety Smoking Status: Never smoker Past Alcohol Use History: None Reported Past Drug Use History: None Reported - Past Family History Mother Family Medical History: Congestive Heart Failure (CHF), CVA/TIA, Diabetes Mellitus, Hypertension Father Family Medical History: Myocardial Infarction (NH) Sister(s) Family Medical History: Dementia Additional Family Medical History / Comment(s): schizophrenia Brother(s) Family Medical History: AFIB, Coronary Artery Disease (CAD), Dementia Additional Family Medical History / Comment(s): alcoholism, x3 stents General Exam - General Exam Comments Initial Comments: GENERAL: Patient is well-developed and well-nourished. Patient is nontoxic and well- hydrated and is in mild distress. ENT: Neck is soft and supple. No significant lymphadenopathy is noted. Oropharynx is clear. Moist mucous membranes. Neck has full range of motion without eliciting any pain. EYES: The sclera were anicteric and conjunctiva were pink and moist. Extraocular movements were intact and pupils were equal round and reactive to light. Eyelids were unremarkable. PULMONARY: She has diffuse expiratory wheezing CARDIOVASCULAR: There is a regular rate and rhythm without any murmurs gallops or rubs. ABDOMEN: Soft and nontender with normal bowel sounds. No palpable organomegaly was noted. There is no palpable pulsatile mass. SKIN: Skin is clear with no lesions or rashes and otherwise unremarkable. NEUROLOGIC: Patient is alert and oriented x3. Cranial nerves II through XII are grossly intact. Motor and sensory are also intact. Normal speech, volume and content. Symmetrical smile. MUSCULOSKELETAL: Normal extremities with adequate strength and full range of motion. No lower extremity swelling or edema. No calf tenderness. LYMPHATICS: No significant lymphadenopathy is noted PSYCHIATRIC: Normal psychiatric evaluation. Normal interpersonal interactions appears functionally intact in deals appropriately with others. No signs of depression. No signs of anxiety. Limitations: no limitations Course Vital Signs 12/21/17 12/21/17 12/21/17 14:38 15:45 15:53 Temperature 98.6 F Pulse Rate 71 73 Respiratory 20 20 20 Rate Blood Pressure 139/72 159/85 O2 Sat by Pulse 94 L 95 Oximetry 12/21/17 12/21/17 16:02 16:24 Temperature Pulse Rate 78 77 Respiratory Rate Blood Pressure O2 Sat by Pulse Oximetry Medical Decision Making - Medical Decision Making EKG shows atrial fibrillation 75 bpm QRS is 88 QTC is 412 QTC is 460. Patient' s EKG shows no ST segment elevation or depression or T wave abnormalities are noted. I will begin to really listened to the patient's lungs after she received her treatment she had no wheezing left she felt considerably better she was oxygenating at 96% on room air and the patient was requesting to go home. - Lab Data Result diagrams: 12/21/17 15:00 12/21/17 15:00 Lab Results 12/21/17 12/21/17 12/21/17 Range/Units 15:00 15:00 15:00 WBC 9.1 (3.8-10.6) k/uL RBC 4.33 (3.80-5.40) m/uL Hgb 12.1 (11.4-16.0) gm/dL Hct 40.0 (34.0-46.0) % MCV 92.3 (80.0-100.0) fL MCH 28.0 (25.0-35.0) pg MCHC 30.3 L (31.0-37.0) g/dL RDW 15.4 (11.5-15.5) % Plt Count 221 (150-450) k/uL Neutrophils % 47 % Lymphocytes % 40 % Monocytes % 5 % Eosinophils % 4 % Basophils % 1 % Neutrophils # 4.3 (1.3-7.7) k/uL Lymphocytes # 3.7 (1.0-4.8) k/uL Monocytes # 0.5 (0-1.0) k/uL Eosinophils # 0.4 (0-0.7) k/uL Basophils # 0.1 (0-0.2) k/uL Hypochromasia Slight PT (9.0-12.0) sec INR (<1.2) APTT (22.0-30.0) sec Sodium 144 (137-145) mmol/L Potassium 4.2 (3.5-5.1) mmol/L Chloride 105 (98-107) mmol/L Carbon Dioxide 27 (22-30) mmol/L Anion Gap 12 mmol/L BUN 19 H (7-17) mg/dL Creatinine 0.76 (0.52-1.04) mg/dL Est GFR (MDRD) Af Amer >60 (>60 ml/min/1.73 sqM) Est GFR (MDRD) Non-Af >60 (>60 ml/min/1.73 sqM) Glucose 92 (74-99) mg/dL Calcium 9.3 (8.4-10.2) mg/dL Magnesium 1.7 (1.6-2.3) mg/dL Total Bilirubin 0.3 (0.2-1.3) mg/dL AST 19 (14-36) U/L ALT 22 (9-52) U/L Alkaline Phosphatase 123 (38-126) U/L Total Creatine Kinase 31 (30-135) U/L CK-MB (CK-2) 0.4 (0.0-2.4) ng/mL CK-MB (CK-2) Rel Index 1.3 Troponin I <0.012 (0.000-0.034) ng/mL NT-Pro-B Natriuret Pep pg/mL Total Protein 7.5 (6.3-8.2) g/dL Albumin 4.2 (3.5-5.0) g/dL 12/21/17 12/21/17 Range/Units 15:00 15:00 WBC (3.8-10.6) k/uL RBC (3.80-5.40) m/uL Hgb (11.4-16.0) gm/dL Hct (34.0-46.0) % MCV (80.0-100.0) fL MCH (25.0-35.0) pg MCHC (31.0-37.0) g/dL RDW (11.5-15.5) % Plt Count (150-450) k/uL Neutrophils % % Lymphocytes % % Monocytes % % Eosinophils % % Basophils % % Neutrophils # (1.3-7.7) k/uL Lymphocytes # (1.0-4.8) k/uL Monocytes # (0-1.0) k/uL Eosinophils # (0-0.7) k/uL Basophils # (0-0.2) k/uL Hypochromasia PT 12.2 H (9.0-12.0) sec INR 1.3 H (<1.2) APTT 34.0 H (22.0-30.0) sec Sodium (137-145) mmol/L Potassium (3.5-5.1) mmol/L Chloride (98-107) mmol/L Carbon Dioxide (22-30) mmol/L Anion Gap mmol/L BUN (7-17) mg/dL Creatinine (0.52-1.04) mg/dL Est GFR (MDRD) Af Amer (>60 ml/min/1.73 sqM) Est GFR (MDRD) Non-Af (>60 ml/min/1.73 sqM) Glucose (74-99) mg/dL Calcium (8.4-10.2) mg/dL Magnesium (1.6-2.3) mg/dL Total Bilirubin (0.2-1.3) mg/dL AST (14-36) U/L ALT (9-52) U/L Alkaline Phosphatase (38-126) U/L Total Creatine Kinase (30-135) U/L CK-MB (CK-2) (0.0-2.4) ng/mL CK-MB (CK-2) Rel Index Troponin I (0.000-0.034) ng/mL NT-Pro-B Natriuret Pep 1400 pg/mL Total Protein (6.3-8.2) g/dL Albumin (3.5-5.0) g/dL Disposition Clinical Impression: Acute exacerbation of chronic obstructive airways disease Disposition: HOME SELF-CARE Instructions: COPD (Chronic Obstructive Pulmonary Disease) (ED) Additional Instructions: Patient should continue to breathing treatments at home and follow-up with her primary medical care doctor tomorrow. Prescriptions: predniSONE 40 mg PO DAILY #8 tab Referrals: Tri Adames III, MD [Primary Care Provider] - 1-2 days Time of Disposition: 17:08
[2017-12-21 15:40] LABS: Basophils # (A) 0.1 k/uL (0-0.2); Basophils % (A) 1 %; Eosinophils # (A) 0.4 k/uL (0-0.7); Eosinophils % (A) 4 %; HGB 12.1 gm/dL (11.4-16.0); Hypochromasia Slight; Lymphocytes # (A) 3.7 k/uL (1.0-4.8); Lymphocytes % (A) 40 %; MCHC 30.3 g/dL (31.0-37.0); MCV 92.3 fL (80.0-100.0); Mean Platelet Volume 7.8; Monocytes # (A) 0.5 k/uL (0-1.0); Monocytes % (A) 5 %; Neutrophils # (A) 4.3 k/uL (1.3-7.7); Neutrophils % (A) 47 %; Platelet Count 221 k/uL (150-450); RBC 4.33 m/uL (3.80-5.40); RDW 15.4 % (11.5-15.5); WBC 9.1 k/uL (3.8-10.6)
--- NOTE | 2017-12-21 15:40 | XR ---
EXAMINATION TYPE: XR chest 2V DATE OF EXAM: 12/21/2017 COMPARISON: 08/16/2017 TECHNIQUE: PA and lateral views submitted. HISTORY: Difficulty breathing FINDINGS: The lungs are clear and there is no pneumothorax, pleural effusion, or focal pneumonia. Heart size stable. Somewhat coarsened central interstitial pattern. Hypertrophic and degenerative change of the spine. IMPRESSION: 1. Coarsened central interstitial pattern could be seen with a bronchitis or interstitial pneumonitis . Venous congestion felt less likely correlate clinically.
[2017-12-21 15:48] LABS: INR 1.3 (<1.2); Prothrombin Time 12.2 sec (9.0-12.0)
[2017-12-21 15:59] LABS: Creatine Kinase 31 U/L (30-135)
[2017-12-21 16:00] LABS: ALT 22 U/L (9-52); AST 19 U/L (14-36); Albumin 4.2 g/dL (3.5-5.0); Alkaline Phosphatase 123 U/L (38-126); Anion Gap 12 mmol/L; Blood Urea Nitrogen 19 mg/dL (7-17); Calcium 9.3 mg/dL (8.4-10.2); Carbon Dioxide 27 mmol/L (22-30); Chloride 105 mmol/L (98-107); Glucose 92 mg/dL (74-99); Magnesium 1.7 mg/dL (1.6-2.3); Potassium 4.2 mmol/L (3.5-5.1); Sodium 144 mmol/L (137-145); Total Bilirubin 0.3 mg/dL (0.2-1.3); Total Protein 7.5 g/dL (6.3-8.2)
[2017-12-21 16:12] LABS: Creatine Kinase MB 0.4 ng/mL (0.0-2.4); Troponin I <0.012 ng/mL (0.000-0.034)
[2017-12-21 17:20] VITALS: BP 157/95; PULSE 88; RESP 16; TEMP 97.9
== END 2017-12-21 17:40 | disposition home or self-care (01) ==
LOC: EC 14:37
DX: J44.1 Chronic obstructive pulmonary disease with (acute) exacerbation (principal); I48.91 Unspecified atrial fibrillation; I10 Essential (primary) hypertension; F41.9 Anxiety disorder, unspecified; E66.01 Morbid (severe) obesity due to excess calories; Z68.41 Body mass index [BMI] 40.0-44.9, adult; Z86.73 Personal history of transient ischemic attack (TIA), and cerebral infarction without residual deficits; Z79.01 Long term (current) use of anticoagulants; Z79.51 Long term (current) use of inhaled steroids; Z79.899 Other long term (current) drug therapy; Z91.018 Allergy to other foods; Z91.041 Radiographic dye allergy status; Z91.013 Allergy to seafood; Z91.030 Bee allergy status; Z88.5 Allergy status to narcotic agent; Z88.8 Allergy status to other drugs, medicaments and biological substances
CPT/HCPCS: 36415; 94640; 83880; 80053; 82550; 82553; 83735; 84484; 85025; 85610; 85730; 71046; 99285; 96374; J2930

== ENCOUNTER 2018-09-18 16:16 | Inpatient (IN) | payer MEDICARE ==
[2018-09-18] MEDS ORDERED: IPRATROPIUM-ALBUTEROL 3 ML NEB INHALATION PRN (18:06)
[2018-09-18] MEDS ORDERED: DOCUSATE 100 MG CAP PO PRN (18:07)
[2018-09-18] MEDS ORDERED: MELATONIN 5 MG TABLET PO PRN (18:11)
[2018-09-18] MEDS ORDERED: ONDANSETRON 4 MG/2 ML VIAL IVP PRN (18:11)
--- NOTE | 2018-09-18 18:39 | XR ---
EXAMINATION TYPE: XR chest 1V portable DATE OF EXAM: 09/18/2018 COMPARISON: December 21, 2017 HISTORY: Cough TECHNIQUE: Single frontal view of the chest is obtained. FINDINGS: Heart and mediastinum are normal. Lungs are clear. Diaphragm is normal. Bony thorax appear s intact. IMPRESSION: Normal chest. No change.
[2018-09-18] MEDS ORDERED: LEVOFLOXACIN 500MG-D5W PMX 500 MG in DEXTROSE/WATER 1 100ML.BAG IVPB SCH (19:00)
[2018-09-18 19:15] LABS: Basophils % (A) 0 %; Eosinophils # (A) 0.3 k/uL (0-0.7); Eosinophils % (A) 3 %; HCT 38.1 % (34.0-46.0); HGB 11.8 gm/dL (11.4-16.0); Hypochromasia Slight; Lymphocytes # (A) 1.8 k/uL (1.0-4.8); Lymphocytes % (A) 16 %; MCH 29.3 pg (25.0-35.0); MCHC 31.1 g/dL (31.0-37.0); MCV 94.5 fL (80.0-100.0); Monocytes # (A) 0.5 k/uL (0-1.0); Monocytes % (A) 4 %; Neutrophils # (A) 8.3 k/uL (1.3-7.7); Neutrophils % (A) 75 %; Platelet Count 219 k/uL (150-450); RBC 4.03 m/uL (3.80-5.40); RDW 13.5 % (11.5-15.5)
[2018-09-18 19:23] LABS: Anion Gap 6 mmol/L; Blood Urea Nitrogen 13 mg/dL (7-17); Calcium 9.1 mg/dL (8.4-10.2); Carbon Dioxide 29 mmol/L (22-30); Chloride 104 mmol/L (98-107); Glucose 161 mg/dL (74-99); Sodium 139 mmol/L (137-145); Total Bilirubin 0.6 mg/dL (0.2-1.3); Total Protein 7.7 g/dL (6.3-8.2)
[2018-09-18 19:24] LABS: ALT 17 U/L (9-52); AST 32 U/L (14-36); Alkaline Phosphatase 76 U/L (38-126); Potassium 5.3 mmol/L (3.5-5.1)
[2018-09-18] MEDS: BUDESONIDE 0.5 MG/2 ML NEBU INHALATION SCH (19:37)
[2018-09-18] MEDS: IPRATROPIUM-ALBUTEROL 3 ML NEB INHALATION SCH (19:37)
[2018-09-18] MEDS: DILTIAZEM ORAL 60 MG TAB PO SCH ×2 (20:05→22:59)
[2018-09-18] MEDS: ASPIRIN 81 MG PO SCH (20:05)
[2018-09-18 20:18] LABS: Glucose,Whole Blood 141 mg/dL (75-99)
[2018-09-18] MEDS: methylPREDNISolone SOD SUCCI 125 MG/2 ML VIAL IV SCH ×2 (20:49→23:43)
[2018-09-18] MEDS: PANTOPRAZOLE 40 MG/10 ML VIAL IVP SCH (20:50)
[2018-09-18] MEDS: HEPARIN SODIUM,PORCINE 5,000 UNIT/ML 1 ML VIAL SQ SCH (20:50)
[2018-09-18] MEDS: METOPROLOL TARTRATE 50 MG TAB PO SCH (20:50)
[2018-09-18] MEDS: INSULIN ASPART 100 UNIT/ML 1 ML 10 ML VIAL SQ SCH (20:53)
[2018-09-18] MEDS ORDERED: AMITRIPTYLINE HCL 10 MG TAB PO SCH (21:00)
[2018-09-19 04:19] LABS: Hemoglobin A1C 4.2 % (4.0-6.0)
[2018-09-19 06:52] LABS: Glucose,Whole Blood 161 mg/dL (75-99)
[2018-09-19] MEDS: IPRATROPIUM-ALBUTEROL 3 ML NEB INHALATION SCH ×4 (08:27→19:53)
[2018-09-19] MEDS: BUDESONIDE 0.5 MG/2 ML NEBU INHALATION SCH (08:27)
[2018-09-19] MEDS: INSULIN ASPART 100 UNIT/ML 1 ML 10 ML VIAL SQ SCH ×4 (08:32→20:42)
[2018-09-19 09:20] LABS: Anion Gap 10 mmol/L; Blood Urea Nitrogen 13 mg/dL (7-17); Calcium 9.2 mg/dL (8.4-10.2); Carbon Dioxide 25 mmol/L (22-30); Chloride 103 mmol/L (98-107); Glucose 185 mg/dL (74-99); Potassium 4.9 mmol/L (3.5-5.1); Sodium 138 mmol/L (137-145)
[2018-09-19 09:23] LABS: Basophils % (A) 0 %; Eosinophils % (A) 0 %; HCT 37.4 % (34.0-46.0); HGB 11.6 gm/dL (11.4-16.0); Lymphocytes # (A) 1.1 k/uL (1.0-4.8); Lymphocytes % (A) 11 %; MCH 28.9 pg (25.0-35.0); MCV 93.3 fL (80.0-100.0); Mean Platelet Volume 7.3; Monocytes # (A) 0.1 k/uL (0-1.0); Monocytes % (A) 1 %; Neutrophils # (A) 9.1 k/uL (1.3-7.7); Neutrophils % (A) 88 %; Platelet Count 223 k/uL (150-450); RBC 4.01 m/uL (3.80-5.40); RDW 13.5 % (11.5-15.5); WBC 10.3 k/uL (3.8-10.6)
[2018-09-19] MEDS: ASPIRIN 81 MG PO SCH (09:24)
[2018-09-19] MEDS: DAPSONE 25 MG TAB PO SCH (09:24)
[2018-09-19] MEDS: DILTIAZEM ORAL 60 MG TAB PO SCH ×3 (09:24→22:27)
[2018-09-19] MEDS: METOPROLOL TARTRATE 50 MG TAB PO SCH ×2 (09:26→20:42)
[2018-09-19] MEDS: HEPARIN SODIUM,PORCINE 5,000 UNIT/ML 1 ML VIAL SQ SCH ×2 (09:26→20:42)
[2018-09-19] MEDS: methylPREDNISolone SOD SUCCI 125 MG/2 ML VIAL IV SCH (09:53)
[2018-09-19] MEDS: PANTOPRAZOLE 40 MG/10 ML VIAL IVP SCH (09:53)
[2018-09-19] MEDS ORDERED: CYCLOBENZAPRINE 5 MG TAB PO PRN (10:45)
[2018-09-19 11:17] LABS: Glucose,Whole Blood 173 mg/dL (75-99)
--- NOTE | 2018-09-19 11:51 | P.CNPUL ---
History of Present Illness Consult date: 09/19/18 Requesting physician: Jose Manuel Means Reason for consult: dyspnea, cough Chief complaint: Shortness of breath, cough, wheezing History of present illness: This a very pleasant 67-year-old female patient follows with Dr. Adames as her primary care physician. She has a history of obesity and atrial fibrillation with previous ablations, anticoagulated with Xarelto, CVA/TIA, fibromyalgia, hypertension, rheumatoid arthritis, unsteady gait, frequent urinary tract infections with urinary incontinence. She is a lifelong nonsmoker. She also has a history of chronic mild intermittent bronchial asthma. She was last seen here in July 2017 for an acute exacerbation. She did follow up with Dr. Mendez in our office 1-2 times in the past but has not been seen in several months. He states her asthma has been very well controlled. She's been on DuoNeb inhalations. She was intolerant to Advair secondary to atrial fibrillation. The patient had recently developed increasing shortness of breath , chest tightness and wheezing. She was seen at her PCPs office yesterday who directly admitted her for inpatient treatment. She is seen today in consultation on the regular medical floor. She is awake and alert in no acute distress. She is already breathing better today as compared to yesterday. Maintaining good O2 saturations in the 90s on room air. She's been afebrile. Hemodynamically stable. Her chest x-ray shows no acute pulmonary process. White count 10.3. Hemoglobin 11.6. Creatinine 0.71. Review of Systems Constitutional: Reports fatigue, Reports weight gain Eyes: denies blurred vision, denies decreased vision Ears: deny: decreased hearing Ears, nose, mouth and throat: Denies headache, Denies sore throat Cardiovascular: Reports decreased exercise tolerance, Reports dyspnea on exertion, Reports irregular heart beat, Reports shortness of breath Respiratory: Reports cough, Reports dyspnea, Reports wheezing Gastrointestinal: Denies abdominal pain, Denies diarrhea, Denies nausea, Denies vomiting Genitourinary: Denies dysuria, Denies hematuria Musculoskeletal: Denies myalgias Integumentary: Denies pruritus, Denies rash Neurological: Denies numbness, Denies weakness Psychiatric: Denies anxiety, Denies depression Endocrine: Denies fatigue, Denies weight change Hematologic/Lymphatic: Reports as per HPI Allergic/Immunologic: Reports as per HPI Past Medical History Past Medical History: Atrial Fibrillation, Heart Failure, CVA/TIA, Fibromyalgia , Hypertension, Rheumatoid Arthritis (RA) Additional Past Medical History / Comment(s): Morbid obesity, bronchial asthma, chronic atrial fibrillation, CVA affected dominat rt side but pt stated she regained use of it., fibromyalgia, rheumatoid arthritis, difficulties with falls and gait, Tonia episodes of urine checked infection, chronic urinary incontinence, " autoimmune disease-pemphigus""chronic gastro colitis", "chronic epsteine oliva syndrome", uti History of Any Multi-Drug Resistant Organisms: None Reported Past Surgical History: Appendectomy, Cardiac Ablation, Section, Cholecystectomy, Orthopedic Surgery, Tubal Ligation Additional Past Surgical History / Comment(s): X3 C-SECTIONS, LT KNEE-EVACUTION OF HEMATOMA 2015,hysterocopy d/t menopausal bleeding, lourdes knee arthroscopy Past Anesthesia/Blood Transfusion Reactions: No Reported Reaction Additional Past Anesthesia/Blood Transfusion Reaction / Comment(s): age 10 had blood transfusion-no known reaction Smoking Status: Never smoker - Past Family History Mother Family Medical History: Congestive Heart Failure (CHF), CVA/TIA, Diabetes Mellitus, Hypertension Father Family Medical History: Myocardial Infarction ([place]) Sister(s) Family Medical History: Dementia Additional Family Medical History / Comment(s): schizophrenia Brother(s) Family Medical History: AFIB, Coronary Artery Disease (CAD), Dementia Additional Family Medical History / Comment(s): alcoholism, x3 stents Medications and Allergies Home Medications Medication Instructions Recorded Confirmed Type Dapsone 100 mg PO DAILY 06/20/14 09/18/18 History Metoprolol Tartrate [Lopressor] 100 mg PO BID 06/20/14 09/18/18 History Rivaroxaban [Xarelto] 20 mg PO DAILY 02/26/16 09/18/18 History Aspirin EC [Ecotrin Low Dose] 81 mg PO DAILY #30 tablet. 02/28/16 09/18/18 Rx Chlorzoxazone [Parafon Forte Dsc] 500 mg PO TID PRN 02/21/17 09/18/18 History Budesonide [Pulmicort] 0.5 mg INHALATION RT-BID 12/21/17 09/18/18 History Ipratropium-Albuterol Nebulize 3 ml INHALATION RT-QID 12/21/17 09/18/18 History [Duoneb 0.5 mg-3 mg/3 ml Soln] Albuterol Inhaler [Ventolin Hfa 2 puff INHALATION RT-Q6H PRN 09/18/18 09/18/18 History Inhaler] Amitriptyline HCl [Elavil] 50 mg PO HS 09/18/18 09/18/18 History Diltiazem Cd [Cardizem CD] 240 mg PO DAILY 09/18/18 09/18/18 History sulfaSALAzine [Azulfidine] 500 mg PO TID 09/18/18 09/18/18 History Allergies Allergy/AdvReac Type Severity Reaction Status Date / Time banana Allergy Itching Verified 09/18/18 19:53 codeine Allergy Nausea & Verified 09/18/18 19:53 Vomiting honey Allergy Swelling Verified 09/18/18 19:53 Iodinated Contrast- Oral and Allergy Swelling Verified 09/18/18 19:53 IV Dye [Iodinated Contrast Media - IV Dye] iodine Allergy AVOIDS Verified 09/18/18 19:53 SHELL FISH ALLERGY morphine Allergy Nausea & Verified 09/18/18 19:53 Vomiting piroxicam [From Feldene] Allergy Swelling Verified 09/18/18 19:53 shellfish derived Allergy Swelling Verified 09/18/18 19:53 venom-honey bee Allergy Anaphylaxis Verified 09/18/18 19:53 [bee venom (honey bee)] Physical Exam Vitals: Vital Signs Temp Pulse Pulse Pulse Resp BP Pulse Ox 09/19/18 11:24 96 09/19/18 11:17 92 09/19/18 08:39 96 09/19/18 08:32 100 09/19/18 08:30 97 20 134/77 92 L 09/19/18 07:23 92 09/19/18 05:55 98 F 104 H 16 113/71 92 L 09/19/18 00:00 18 09/18/18 21:39 98.3 F 91 16 146/70 95 09/18/18 19:52 78 09/18/18 19:37 76 09/18/18 17:28 98.1 F 76 18 146/80 93 L Intake and Output 09/18/18 09/19/18 09/19/18 22:59 06:59 14:59 Intake Total 520 520 Balance 520 520 Intake: Intake, IV Titration 100 100 Amount Levofloxacin 500Mg-D5w 100 100 Pmx 500 mg In Dextrose/ Water 1 100ml.bag @ 100 mls/hr IVPB Q24H [facility] Rx#: [id number] Oral 420 420 Other: Voiding Method Toilet # Voids 2 Weight 104.78 kg 104.78 kg - Constitutional General appearance: mild distress, morbidly obese - EENT Eyes: EOMI, PERRLA ENT: hearing grossly normal Ears: bilateral: normal - Neck Neck: normal ROM Carotids: bilateral: upstroke normal Thyroid: bilateral: normal size - Respiratory Respiratory: bilateral: wheezing - Cardiovascular Rhythm: irregularly irregular Heart sounds: normal: S1, S2 - Gastrointestinal General gastrointestinal: normal bowel sounds - Integumentary Integumentary: normal turgor - Neurologic Neurologic: CNII-XII intact - Musculoskeletal Musculoskeletal: generalized weakness - Psychiatric Psychiatric: A&O x's 3, appropriate affect, intact judgment & insight Results - Laboratory Findings CBC and BMP: 09/19/18 08:18 09/19/18 08:18 PT/INR, D-dimer D-Dimer <0.17 mg/L FEU (<0.60) 09/18/18 18:58 Abnormal lab findings: Abnormal Labs 09/18/18 09/18/18 09/18/18 18:58 18:58 20:15 WBC 11.0 H Neutrophils # 8.3 H Potassium 5.3 H Glucose 161 H POC Glucose (mg/dL) 141 H 09/19/18 09/19/18 09/19/18 06:51 08:18 08:18 WBC Neutrophils # 9.1 H Potassium Glucose 185 H POC Glucose (mg/dL) 161 H 09/19/18 11:15 WBC Neutrophils # Potassium Glucose POC Glucose (mg/dL) 173 H - Diagnostic Findings Chest x-ray: image reviewed Assessment and Plan Assessment: Impression: #1 Acute exacerbation of mild intermittent chronic bronchial asthma with no clear evidence of pneumonia. #2 Obesity. #3 Chronic atrial fibrillation with previous ablations, anticoagulated with Xarelto. #4 Rheumatoid arthritis. #5 Degenerative arthritis. #6 History of CVA/TIA. #7 Hypertension. #8 Fibromyalgia. Plan: The patient was seen and evaluated by Dr. Covarrubias. Chest x-ray and labs were reviewed. We'll continue with her treatment for her asthma exacerbation. Continue DuoNeb inhalations, Pulmicort inhalations, IV Solu-Medrol. She is anticoagulated with Xarelto. We will increase her activity as tolerated. We' ll continue to follow and make further recommendations based on her clinical status. Probably home in the next 24-48 hours. I, the cosigning physician, performed a history & physical examination of the patient. Lungs sounds faint end expiratory wheeze.. Maintaining good O2 saturations in the 90s on room air. I discussed the assessment and plan of care with my nurse practitioner, Cheri Khan. I attest to the above note as dictated by her. Time with Patient: Greater than 30
[2018-09-19] MEDS: ACETAMINOPHEN TAB 325 MG TAB PO PRN ×2 (12:02→21:04)
--- NOTE | 2018-09-19 12:36 | P.HPIM ---
History of Present Illness 67-year-old pleasant female came in because of comments of shortness of breath cough without any significant sputum production patient does have history of asthma appears to be an asthma exacerbation with significant wheezing does not have any pneumonic process in the chest x-ray patient was started on systemic steroids inhalational treatments. He shouldn't does have history of atrial fibrillation on anticoagulation with Xarelto. Patient denied any fever chills nausea vomiting. Denied any fever chills patient does not have any leukocytosis or fever. Review of Systems REVIEW OF SYSTEMS: CONSTITUTIONAL: No fever, no malaise, no fatigue. HEENT: No recent visual problems or hearing problems. Denied any sore throat. CARDIOVASCULAR: No chest pain, orthopnea, PND, no palpitations, no syncope. PULMONARY: no hemoptysis. GASTROINTESTINAL: No diarrhea, no nausea, no vomiting, no abdominal pain. Normoactive bowel sounds. NEUROLOGICAL: No headaches, no weakness, no numbness. HEMATOLOGICAL: Denies any bleeding or petechiae. GENITOURINARY: Denies any burning micturition, frequency, or urgency. MUSCULOSKELETAL/RHEUMATOLOGICAL: Denies any joint pain, swelling, or any muscle pain. ENDOCRINE: Denies any polyuria or polydipsia. The rest of the 14-point review of systems is negative. Past Medical History Past Medical History: Atrial Fibrillation, Heart Failure, CVA/TIA, Fibromyalgia , Hypertension, Rheumatoid Arthritis (RA) Additional Past Medical History / Comment(s): Morbid obesity, bronchial asthma, chronic atrial fibrillation, CVA affected dominat rt side but pt stated she regained use of it., fibromyalgia, rheumatoid arthritis, difficulties with falls and gait, Tonia episodes of urine checked infection, chronic urinary incontinence, " autoimmune disease-pemphigus""chronic gastro colitis", "chronic epsteine oliva syndrome", uti History of Any Multi-Drug Resistant Organisms: None Reported Past Surgical History: Appendectomy, Cardiac Ablation, Section, Cholecystectomy, Orthopedic Surgery, Tubal Ligation Additional Past Surgical History / Comment(s): X3 C-SECTIONS, LT KNEE-EVACUTION OF HEMATOMA 2015,hysterocopy d/t menopausal bleeding, lourdes knee arthroscopy Past Anesthesia/Blood Transfusion Reactions: No Reported Reaction Additional Past Anesthesia/Blood Transfusion Reaction / Comment(s): age 10 had blood transfusion-no known reaction Smoking Status: Never smoker - Past Family History Mother Family Medical History: Congestive Heart Failure (CHF), CVA/TIA, Diabetes Mellitus, Hypertension Father Family Medical History: Myocardial Infarction ([place]) Sister(s) Family Medical History: Dementia Additional Family Medical History / Comment(s): schizophrenia Brother(s) Family Medical History: AFIB, Coronary Artery Disease (CAD), Dementia Additional Family Medical History / Comment(s): alcoholism, x3 stents Medications and Allergies Home Medications Medication Instructions Recorded Confirmed Type Dapsone 100 mg PO DAILY 06/20/14 09/18/18 History Metoprolol Tartrate [Lopressor] 100 mg PO BID 06/20/14 09/18/18 History Rivaroxaban [Xarelto] 20 mg PO DAILY 02/26/16 09/18/18 History Aspirin EC [Ecotrin Low Dose] 81 mg PO DAILY #30 tablet. 02/28/16 09/18/18 Rx Chlorzoxazone [Parafon Forte Dsc] 500 mg PO TID PRN 02/21/17 09/18/18 History Budesonide [Pulmicort] 0.5 mg INHALATION RT-BID 12/21/17 09/18/18 History Ipratropium-Albuterol Nebulize 3 ml INHALATION RT-QID 12/21/17 09/18/18 History [Duoneb 0.5 mg-3 mg/3 ml Soln] Albuterol Inhaler [Ventolin Hfa 2 puff INHALATION RT-Q6H PRN 09/18/18 09/18/18 History Inhaler] Amitriptyline HCl [Elavil] 50 mg PO HS 09/18/18 09/18/18 History Diltiazem Cd [Cardizem CD] 240 mg PO DAILY 09/18/18 09/18/18 History sulfaSALAzine [Azulfidine] 500 mg PO TID 09/18/18 09/18/18 History Allergies Allergy/AdvReac Type Severity Reaction Status Date / Time banana Allergy Itching Verified 09/18/18 19:53 codeine Allergy Nausea & Verified 09/18/18 19:53 Vomiting honey Allergy Swelling Verified 09/18/18 19:53 Iodinated Contrast- Oral and Allergy Swelling Verified 09/18/18 19:53 IV Dye [Iodinated Contrast Media - IV Dye] iodine Allergy AVOIDS Verified 09/18/18 19:53 SHELL FISH ALLERGY morphine Allergy Nausea & Verified 09/18/18 19:53 Vomiting piroxicam [From Feldene] Allergy Swelling Verified 09/18/18 19:53 shellfish derived Allergy Swelling Verified 09/18/18 19:53 venom-honey bee Allergy Anaphylaxis Verified 09/18/18 19:53 [bee venom (honey bee)] Physical Exam Vitals: Vital Signs Temp Pulse Pulse Pulse Resp BP Pulse Ox 09/19/18 12:12 98.3 F 103 H 20 113/67 92 L 09/19/18 11:24 96 09/19/18 11:17 92 09/19/18 08:39 96 09/19/18 08:32 100 09/19/18 08:30 97 20 134/77 92 L 09/19/18 07:23 92 09/19/18 05:55 98 F 104 H 16 113/71 92 L 09/19/18 00:00 18 09/18/18 21:39 98.3 F 91 16 146/70 95 09/18/18 19:52 78 09/18/18 19:37 76 09/18/18 17:28 98.1 F 76 18 146/80 93 L Intake and Output 09/18/18 09/19/18 09/19/18 22:59 06:59 14:59 Intake Total 520 520 Balance 520 520 Intake: Intake, IV Titration 100 100 Amount Levofloxacin 500Mg-D5w 100 100 Pmx 500 mg In Dextrose/ Water 1 100ml.bag @ 100 mls/hr IVPB Q24H [facility] Rx#: [id number] Oral 420 420 Other: Voiding Method Toilet # Voids 2 Weight 104.78 kg 104.78 kg PHYSICAL EXAMINATION: GENERAL: The patient is alert and oriented x3, not in any acute distress. Well developed, well nourished. HEENT: Pupils are round and equally reacting to light. EOMI. No scleral icterus. No conjunctival pallor. Normocephalic, atraumatic. No pharyngeal erythema. No thyromegaly. CARDIOVASCULAR: S1 and S2 present. No murmurs, rubs, or gallops. PULMONARY: Limited air entry into bilateral lung vega expiratory wheezing was appreciated ABDOMEN: Soft, nontender, nondistended, normoactive bowel sounds. No palpable organomegaly. MUSCULOSKELETAL: No joint swelling or deformity. EXTREMITIES: No cyanosis, clubbing, or pedal edema. NEUROLOGICAL: Gross neurological examination did not reveal any focal deficits. SKIN: No rashes. Results CBC & Chem 7: 09/19/18 08:18 09/19/18 08:18 Labs: Abnormal Lab Results - Last 24 Hours (Table) 09/18/18 09/18/18 09/18/18 Range/Units 18:58 18:58 20:15 WBC 11.0 H (3.8-10.6) k/uL Neutrophils # 8.3 H (1.3-7.7) k/uL Potassium 5.3 H (3.5-5.1) mmol/L Glucose 161 H (74-99) mg/dL POC Glucose (mg/dL) 141 H (75-99) mg/dL 09/19/18 09/19/18 09/19/18 Range/Units 06:51 08:18 08:18 WBC (3.8-10.6) k/uL Neutrophils # 9.1 H (1.3-7.7) k/uL Potassium (3.5-5.1) mmol/L Glucose 185 H (74-99) mg/dL POC Glucose (mg/dL) 161 H (75-99) mg/dL 09/19/18 Range/Units 11:15 WBC (3.8-10.6) k/uL Neutrophils # (1.3-7.7) k/uL Potassium (3.5-5.1) mmol/L Glucose (74-99) mg/dL POC Glucose (mg/dL) 173 H (75-99) mg/dL Thrombosis Risk Factor Assmnt - Choose All That Apply Each Factor Represents 1 point: Abnormal pulmonary function (COPD), Obesity ( BMI >25) Each Risk Factor Represents 2 Points: Age 61-74 years Thrombosis Risk Factor Assessment Total Risk Factor Score: 4 Thrombosis Risk Factor Assessment Level: Moderate Risk Assessment and Plan Plan: -Acute exacerbation of asthma patient appears to have moderate intermittent asthma no evidence of pneumonia. Patient will continue on systemic steroids. Patient may not in need antibiotics legal levofloxacin will be discontinued. -Atrial fibrillation with previous ablations and patient is on anti-correlation which will be continued -Rheumatoid arthritis -CVA TIA in the past -History of lichen planus for which patient is on dapsone which will be continued -History of colitis for which patient is on sulfasalazine. Type of colitis is unknown to me -History of CVA -Hypertension -Fibromyalgia For above-mentioned chronic medical problems patient will be resumed on appropriate home medications.
[2018-09-19 16:26] LABS: Glucose,Whole Blood 183 mg/dL (75-99)
[2018-09-19] MEDS: sulfaSALAzine 500 MG TAB PO SCH ×2 (17:15→22:27)
[2018-09-19] MEDS: BUDESONIDE 1 MG/2 ML NEBU INHALATION SCH (19:54)
[2018-09-19 20:36] LABS: Glucose,Whole Blood 193 mg/dL (75-99)
[2018-09-19] MEDS: AMITRIPTYLINE HCL 50 MG TAB PO SCH (20:41)
[2018-09-19] MEDS: methylPREDNISolone SOD SUCCI 40 MG/ML 1 ML VIAL IV SCH (20:42)
[2018-09-20] MEDS: IPRATROPIUM-ALBUTEROL 3 ML NEB INHALATION SCH ×4 (07:06→19:30)
[2018-09-20] MEDS: BUDESONIDE 1 MG/2 ML NEBU INHALATION SCH ×2 (07:06→19:29)
[2018-09-20 07:33] LABS: Glucose,Whole Blood 144 mg/dL (75-99)
[2018-09-20] MEDS: ASPIRIN 81 MG PO SCH (07:47)
[2018-09-20] MEDS: DAPSONE 25 MG TAB PO SCH (07:47)
[2018-09-20] MEDS: PANTOPRAZOLE 40 MG TABLET PO SCH (07:47)
[2018-09-20] MEDS: DILTIAZEM ORAL 60 MG TAB PO SCH ×3 (07:48→22:20)
[2018-09-20] MEDS: RIVAROXABAN 20 MG TAB PO SCH (07:51)
[2018-09-20] MEDS: METOPROLOL TARTRATE 50 MG TAB PO SCH ×2 (07:51→22:20)
[2018-09-20] MEDS: sulfaSALAzine 500 MG TAB PO SCH ×3 (07:52→22:20)
[2018-09-20] MEDS: ACETAMINOPHEN TAB 325 MG TAB PO PRN (07:53)
[2018-09-20 07:54] LABS: Basophils % (A) 0 %; Eosinophils # (A) 0.1 k/uL (0-0.7); Eosinophils % (A) 0 %; HCT 36.2 % (34.0-46.0); HGB 11.6 gm/dL (11.4-16.0); Lymphocytes # (A) 1.6 k/uL (1.0-4.8); Lymphocytes % (A) 12 %; MCHC 31.9 g/dL (31.0-37.0); Mean Platelet Volume 7.9; Monocytes # (A) 0.6 k/uL (0-1.0); Monocytes % (A) 4 %; Neutrophils # (A) 11.4 k/uL (1.3-7.7); Neutrophils % (A) 83 %; Platelet Count 248 k/uL (150-450); RBC 3.85 m/uL (3.80-5.40); RDW 13.7 % (11.5-15.5); WBC 13.7 k/uL (3.8-10.6)
[2018-09-20 08:12] LABS: Anion Gap 9 mmol/L; Blood Urea Nitrogen 24 mg/dL (7-17); Calcium 9.5 mg/dL (8.4-10.2); Carbon Dioxide 25 mmol/L (22-30); Chloride 106 mmol/L (98-107); Glucose 139 mg/dL (74-99); Sodium 140 mmol/L (137-145)
[2018-09-20] MEDS: INSULIN ASPART 100 UNIT/ML 1 ML 10 ML VIAL SQ SCH ×4 (08:18→22:27)
[2018-09-20] MEDS: methylPREDNISolone SOD SUCCI 40 MG/ML 1 ML VIAL IV SCH ×2 (08:44→22:19)
[2018-09-20] MEDS ORDERED: DILTIAZEM CD 240 MG CAP.ER.24H PO SCH (09:00)
[2018-09-20 11:54] LABS: Glucose,Whole Blood 172 mg/dL (75-99)
--- NOTE | 2018-09-20 14:30 | P.PN ---
Subjective Progress Note Date: 09/20/18 Principal diagnosis: Shortness of breath Progress note dated 09/20/2018 67-year-old female with a history of acute asthma exacerbation, obesity, chronic atrial fibrillation status post ablation, rheumatoid arthritis, DJD, CVA , hypertension, and fibromyalgia. She was seen yesterday in consultation. Her complaints included shortness of breath chest tightness wheezing and cough. We placed her on all the usual medications including duo nebs, Pulmicort, solumedrol, and long-acting beta agonist. She is anticoagulated with a factor X a inhibitor for her chronic atrial fibrillation. She is doing much better today. She feeling much better. Not yet ready for discharge. She still has shortness of breath chest tightness wheezing cough and chest congestion. Objective - Vital Signs Vital signs: Vital Signs Temp 97.1 F L 09/20/18 11:53 Pulse 99 09/20/18 11:53 Resp 20 09/20/18 11:53 BP 114/69 09/20/18 11:53 Pulse Ox 91 L 09/20/18 11:53 Intake & Output 09/19/18 09/20/18 09/20/18 18:59 06:59 18:59 Intake Total 1200 Balance 1200 Weight 107.5 kg Intake: Oral 1200 Other: Voiding Method Toilet Toilet Toilet # Voids 1 1 - Exam No acute distress, oriented 3. No acute respiratory distress. No audible wheezing. No use of accessory muscles. HEENT examination is grossly unremarkable. Mucous membranes are moist. No oral lesions. Neck supple. Full range of motion. No adenopathy thyromegaly or neck vein distention. Cardiovascular examination reveals an irregular rhythm and rate. S1-S2 normal. No discernible murmur noted. Heart sounds are distant. Lungs reveal bilateral expiratory wheezes and rhonchi. Breath sounds are diminished. There is prolongation on forced maneuver. The patient coughs and wheezes on forced maneuver. Breath sounds are equal bilaterally and improved compared to yesterday's exam. Abdomen soft bowel sounds are heard. No masses or tenderness. Extremities are intact. No cyanosis clubbing or edema. Skin is without rash or lesion. Neurologic examination is brief but nonfocal. - Labs CBC & Chem 7: 09/20/18 07:09 09/20/18 07:09 Labs: Abnormal Lab Results - Last 24 Hours (Table) 09/19/18 09/19/18 09/20/18 Range/Units 16:25 20:34 07:09 WBC 13.7 H (3.8-10.6) k/uL Neutrophils # 11.4 H (1.3-7.7) k/uL BUN (7-17) mg/dL Glucose (74-99) mg/dL POC Glucose (mg/dL) 183 H 193 H (75-99) mg/dL 09/20/18 09/20/18 09/20/18 Range/Units 07:09 07:32 11:53 WBC (3.8-10.6) k/uL Neutrophils # (1.3-7.7) k/uL BUN 24 H (7-17) mg/dL Glucose 139 H (74-99) mg/dL POC Glucose (mg/dL) 144 H 172 H (75-99) mg/dL Assessment and Plan Assessment: Assessment Acute exacerbation of asthma, which is mild and intermittent in nature, without evidence of pneumonia, but possibly, complicated by purulent tracheobronchitis Morbid obesity Chronic atrial fibrillation with previous ablation Rheumatoid arthritis DJD History of CVA History of hypertension History of fibromyalgia Plan: Plan dated 09/20/2018 The patient will continue on her current medications. This includes short acting beta agonist, short acting muscarinic antagonist, long-acting beta agonist, and inhaled corticosteroids. In addition, the patient will continue on systemic corticosteroids and oral antibiotics. The patient's overall situation has improved. She may be ready for discharge within the next 24-48 hours. We will continue to follow. Her prognosis is guarded. Her white count is 13.7 hemoglobin and hematocrit and platelet count all being normal. Likewise , sodium potassium chloride CO2 are all normal. Anion gap is normal. BUN is 24 with a normal creatinine. Time with Patient: Less than 30
[2018-09-20 16:41] LABS: Glucose,Whole Blood 155 mg/dL (75-99)
[2018-09-20 21:00] LABS: Glucose,Whole Blood 145 mg/dL (75-99)
[2018-09-20] MEDS: AMITRIPTYLINE HCL 50 MG TAB PO SCH (22:28)
[2018-09-21] MEDS: BUDESONIDE 1 MG/2 ML NEBU INHALATION SCH ×2 (06:59→19:35)
[2018-09-21] MEDS: IPRATROPIUM-ALBUTEROL 3 ML NEB INHALATION SCH ×4 (06:59→19:35)
[2018-09-21 07:30] LABS: Glucose,Whole Blood 133 mg/dL (75-99)
[2018-09-21 07:43] LABS: Basophils % (A) 0 %; Eosinophils % (A) 0 %; HCT 37.9 % (34.0-46.0); HGB 11.6 gm/dL (11.4-16.0); Hypochromasia Slight; Lymphocytes # (A) 1.5 k/uL (1.0-4.8); Lymphocytes % (A) 13 %; MCH 29.1 pg (25.0-35.0); MCHC 30.5 g/dL (31.0-37.0); MCV 95.3 fL (80.0-100.0); Mean Platelet Volume 7.7; Monocytes # (A) 0.4 k/uL (0-1.0); Monocytes % (A) 3 %; Neutrophils # (A) 9.7 k/uL (1.3-7.7); Neutrophils % (A) 83 %; Platelet Count 281 k/uL (150-450); RBC 3.97 m/uL (3.80-5.40); RDW 13.5 % (11.5-15.5); WBC 11.7 k/uL (3.8-10.6)
[2018-09-21 07:58] LABS: Anion Gap 8 mmol/L; Blood Urea Nitrogen 28 mg/dL (7-17); Calcium 9.4 mg/dL (8.4-10.2); Carbon Dioxide 28 mmol/L (22-30); Chloride 104 mmol/L (98-107); Glucose 129 mg/dL (74-99); Potassium 5.2 mmol/L (3.5-5.1); Sodium 140 mmol/L (137-145)
[2018-09-21] MEDS: PANTOPRAZOLE 40 MG TABLET PO SCH (08:05)
[2018-09-21] MEDS: AZITHROMYCIN 500 MG TAB PO SCH (08:06)
[2018-09-21] MEDS: ASPIRIN 81 MG PO SCH (08:06)
[2018-09-21] MEDS: DAPSONE 25 MG TAB PO SCH (08:07)
[2018-09-21] MEDS: DILTIAZEM ORAL 60 MG TAB PO SCH ×3 (08:08→22:22)
[2018-09-21] MEDS: methylPREDNISolone SOD SUCCI 40 MG/ML 1 ML VIAL IV SCH ×2 (08:09→20:23)
[2018-09-21] MEDS: INSULIN ASPART 100 UNIT/ML 1 ML 10 ML VIAL SQ SCH ×4 (08:09→20:23)
[2018-09-21] MEDS: METOPROLOL TARTRATE 50 MG TAB PO SCH ×2 (08:10→20:23)
[2018-09-21] MEDS: RIVAROXABAN 20 MG TAB PO SCH (08:11)
[2018-09-21] MEDS: sulfaSALAzine 500 MG TAB PO SCH ×3 (08:12→22:22)
--- NOTE | 2018-09-21 09:50 | P.PN ---
Subjective Progress Note Date: 09/21/18 Principal diagnosis: Acute exacerbation of mild intermittent bronchial asthma Progress note dated 09/20/2018 67-year-old female with a history of acute asthma exacerbation, obesity, chronic atrial fibrillation status post ablation, rheumatoid arthritis, DJD, CVA , hypertension, and fibromyalgia. She was seen yesterday in consultation. Her complaints included shortness of breath chest tightness wheezing and cough. We placed her on all the usual medications including duo nebs, Pulmicort, solumedrol, and long-acting beta agonist. She is anticoagulated with a factor X a inhibitor for her chronic atrial fibrillation. She is doing much better today. She feeling much better. Not yet ready for discharge. She still has shortness of breath chest tightness wheezing cough and chest congestion. On 09/21/2018 patient seen in follow-up on medical surgical floor, she is improving, less coughing, no chest tightness, lungs clear to auscultation, no wheezing. Patient is afebrile, currently on 2 L per nasal cannula, her pulse ox is 92%. No fever, no chills. Doing well, from pulmonary perspective patient is stable for discharge home today. Objective - Vital Signs Vital signs: Vital Signs Temp 98.5 F 09/21/18 05:00 Pulse 55 L 09/21/18 08:30 Resp 20 09/21/18 08:30 BP 132/84 09/21/18 05:00 Pulse Ox 92 L 09/21/18 05:00 Intake & Output 09/20/18 09/21/18 09/21/18 18:59 06:59 18:59 Intake Total 860 Balance 860 Weight 107.5 kg Intake: Oral 860 Other: Voiding Method Toilet Toilet Toilet # Voids 1 1 - Exam No acute distress, oriented 3. No acute respiratory distress. No audible wheezing. No use of accessory muscles. HEENT examination is grossly unremarkable. Mucous membranes are moist. No oral lesions. Neck supple. Full range of motion. No adenopathy thyromegaly or neck vein distention. Cardiovascular examination reveals an irregular rhythm and rate. S1-S2 normal. No discernible murmur noted. Heart sounds are distant. Lungs clear breath sounds diminished at the bases. Breath sounds are equal bilaterally and improved compared to yesterday's exam. Abdomen soft bowel sounds are heard. No masses or tenderness. Extremities are intact. No cyanosis clubbing or edema. Skin is without rash or lesion. Neurologic examination is brief but nonfocal. - Labs CBC & Chem 7: 09/21/18 07:24 09/21/18 07:24 Labs: Abnormal Lab Results - Last 24 Hours (Table) 09/20/18 09/20/18 09/20/18 Range/Units 11:53 16:40 20:58 WBC (3.8-10.6) k/uL MCHC (31.0-37.0) g/dL Neutrophils # (1.3-7.7) k/uL Potassium (3.5-5.1) mmol/L BUN (7-17) mg/dL Glucose (74-99) mg/dL POC Glucose (mg/dL) 172 H 155 H 145 H (75-99) mg/dL 09/21/18 09/21/18 09/21/18 Range/Units 07:19 07:24 07:24 WBC 11.7 H (3.8-10.6) k/uL MCHC 30.5 L (31.0-37.0) g/dL Neutrophils # 9.7 H (1.3-7.7) k/uL Potassium 5.2 H (3.5-5.1) mmol/L BUN 28 H (7-17) mg/dL Glucose 129 H (74-99) mg/dL POC Glucose (mg/dL) 133 H (75-99) mg/dL Assessment and Plan Plan: Assessment: Acute exacerbation of asthma, which is mild and intermittent in nature, without evidence of pneumonia, but possibly, complicated by purulent tracheobronchitis Morbid obesity Chronic atrial fibrillation with previous ablation Rheumatoid arthritis DJD History of CVA History of hypertension History of fibromyalgia Plan: Patient reports her breathing is easier, less shortness of breath, less chest tightness and wheezing. Lung sounds are essentially clear to auscultation on today's exam. Vitals are stable, no fever, no chills. No acute events overnight, from pulmonary perspective she is ready for discharge today, on short course of oral antibiotics, prednisone taper, and her maintenance inhalers and nebulized treatments, follow up with Dr. Mendez in the office in one week I performed a history & physical examination of the patient and discussed their management with my nurse practitioner, Letitia Michelle. I reviewed the nurse practitioner's note and agree with the documented findings and plan of care. Lung sounds are clear. The findings and the impression was discussed with the patient. I attest to the documentation by the nurse practitioner. Time with Patient: Less than 30
[2018-09-21 11:31] LABS: Glucose,Whole Blood 165 mg/dL (75-99)
[2018-09-21] MEDS ORDERED: SODIUM POLYSTYRENE SULFONATE 15 GM/60 ML BOTTLE PO STA (12:28)
[2018-09-21 17:10] LABS: Glucose,Whole Blood 129 mg/dL (75-99)
[2018-09-21 19:59] LABS: Glucose,Whole Blood 150 mg/dL (75-99)
[2018-09-21] MEDS: AMITRIPTYLINE HCL 50 MG TAB PO SCH (20:23)
--- NOTE | 2018-09-21 22:26 | P.PN ---
Subjective Progress Note Date: 09/20/18 Progress note being dictated for Dr. Means. Interval history:67-year-old pleasant female came in because of comments of shortness of breath cough without any significant sputum production patient does have history of asthma appears to be an asthma exacerbation with significant wheezing does not have any pneumonic process in the chest x-ray patient was started on systemic steroids inhalational treatments. He shouldn't does have history of atrial fibrillation on anticoagulation with Xarelto. Patient denied any fever chills nausea vomiting. Denied any fever chills patient does not have any leukocytosis or fever. 09/20/2018 maintained on nebulized bronchodilators, systemic steroids, antibiotics. Breathing improving, but Wheezing persists. Denies chest pain, palpitations or increasing shortness of breath. Afebrile. Mild tachycardia, continues to require 2 L nasal cannula to maintain O2 sats in the low 90s. Objective - Vital Signs Vital signs: Intake & Output 09/21/18 09/21/18 09/22/18 06:59 18:59 06:59 Intake Total 860 Balance 860 Weight 107.5 kg Intake: Oral 860 Other: Voiding Method Toilet Toilet # Voids 1 2 1 - Exam Temp 97.1 F L 09/20/18 11:53 Pulse 99 09/20/18 11:53 Resp 20 09/20/18 11:53 BP 114/69 09/20/18 11:53 Pulse Ox 91 L 09/20/18 11:53 GENERAL: The patient is alert and oriented x3, no acute distress. HEENT: Pupils are round and equally reacting to light. EOMI. No scleral icterus. No conjunctival pallor. Normocephalic, atraumatic. CARDIOVASCULAR: S1 and S2 present. No murmurs, rubs, or gallops. PULMONARY: Limited air entry into bilateral lung vega expiratory wheezing ABDOMEN: Soft, nontender, nondistended, normoactive bowel sounds. No palpable organomegaly. MUSCULOSKELETAL: No joint swelling or deformity. EXTREMITIES: No cyanosis, clubbing, or pedal edema. NEUROLOGICAL: Gross neurological examination did not reveal any focal deficits. SKIN: No rashes. - Labs CBC & Chem 7: 09/21/18 07:24 09/21/18 07:24 Labs: Abnormal Lab Results - Last 24 Hours (Table) 11/07/0109/21/18 09/21/18 Range/Units 07:19 07:24 07:24 WBC 11.7 H (3.8-10.6) k/uL MCHC 30.5 L (31.0-37.0) g/dL Neutrophils # 9.7 H (1.3-7.7) k/uL Potassium 5.2 H (3.5-5.1) mmol/L BUN 28 H (7-17) mg/dL Glucose 129 H (74-99) mg/dL POC Glucose (mg/dL) 133 H (75-99) mg/dL 09/21/18 09/21/18 09/21/18 Range/Units 11:29 17:08 19:55 WBC (3.8-10.6) k/uL MCHC (31.0-37.0) g/dL Neutrophils # (1.3-7.7) k/uL Potassium (3.5-5.1) mmol/L BUN (7-17) mg/dL Glucose (74-99) mg/dL POC Glucose (mg/dL) 165 H 129 H 150 H (75-99) mg/dL Assessment and Plan Assessment: -Acute exacerbation of asthma patient appears to have moderate intermittent asthma no evidence of pneumonia. -Atrial fibrillation with previous ablations on anticoagulation -Rheumatoid arthritis -CVA TIA in the past -History of lichen planus for which patient is on dapsone which will be continued -History of colitis for which patient is on sulfasalazine. Type of colitis is unknown to me -History of CVA -Hypertension -Fibromyalgia Plan: Continue on current medication regime ,monitoring and symptomatic treatment. Maintain nebulized bronchodilators, systemic steroids, antibiotics. Aggressive pulmonary toileting. Increasing dilation as tolerated. Discharge planning in progress for tomorrow pending pulmonary clearance. The impression and plan of care has been dictated as directed. : I performed a history and examination of this patient, discussed the same with the dictator. I agree with the dictator's note ,documented as a scribe. Any additional findings or plans will be noted.
--- NOTE | 2018-09-21 22:31 | P.PN ---
Subjective Progress Note Date: 09/21/18 Progress note being dictated for Dr. Means. Interval history:67-year-old pleasant female came in because of comments of shortness of breath cough without any significant sputum production patient does have history of asthma appears to be an asthma exacerbation with significant wheezing does not have any pneumonic process in the chest x-ray patient was started on systemic steroids inhalational treatments. He shouldn't does have history of atrial fibrillation on anticoagulation with Xarelto. Patient denied any fever chills nausea vomiting. Denied any fever chills patient does not have any leukocytosis or fever. 09/20/2018 maintained on nebulized bronchodilators, systemic steroids, antibiotics. Breathing improving, but Wheezing persists. Denies chest pain, palpitations or increasing shortness of breath. Afebrile. Mild tachycardia, continues to require 2 L nasal cannula to maintain O2 sats in the low 90s. 09/21/2018 breathing continues to improve. Continues to require 2 L nasal cannula O2 to maintain O2 sats in the low 90s, in a patient who does not wear oxygen at home. Earlier in a.m. wheezing significantly improved. By afternoon , increased wheezing. Denies chest pain, palpitations. Objective - Vital Signs Vital signs: Vital Signs Temp 98.3 F 09/21/18 21:00 Pulse 113 H 09/21/18 21:00 Resp 16 09/21/18 21:00 BP 177/95 09/21/18 21:00 Pulse Ox 94 L 09/21/18 21:00 Intake & Output 09/21/18 09/21/18 09/22/18 06:59 18:59 06:59 Intake Total 860 Balance 860 Weight 107.5 kg Intake: Oral 860 Other: Voiding Method Toilet Toilet # Voids 1 2 1 - Exam GENERAL: The patient is alert and oriented x3, no acute distress. HEENT: Pupils are round and equally reacting to light. EOMI. No scleral icterus. No conjunctival pallor. Normocephalic, atraumatic. CARDIOVASCULAR: S1 and S2 present. No murmurs, rubs, or gallops. PULMONARY: Limited air entry into bilateral lung vega, expiratory wheezing ABDOMEN: Soft, nontender, nondistended, normoactive bowel sounds. No palpable organomegaly. MUSCULOSKELETAL: No joint swelling or deformity. EXTREMITIES: No cyanosis, clubbing, or pedal edema. NEUROLOGICAL: Gross neurological examination did not reveal any focal deficits. SKIN: No rashes. - Labs CBC & Chem 7: 09/21/18 07:24 09/21/18 07:24 Labs: Abnormal Lab Results - Last 24 Hours (Table) 09/21/18 09/21/18 09/21/18 Range/Units 07:19 07:24 07:24 WBC 11.7 H (3.8-10.6) k/uL MCHC 30.5 L (31.0-37.0) g/dL Neutrophils # 9.7 H (1.3-7.7) k/uL Potassium 5.2 H (3.5-5.1) mmol/L BUN 28 H (7-17) mg/dL Glucose 129 H (74-99) mg/dL POC Glucose (mg/dL) 133 H (75-99) mg/dL 09/21/18 09/21/18 09/21/18 Range/Units 11:29 17:08 19:55 WBC (3.8-10.6) k/uL MCHC (31.0-37.0) g/dL Neutrophils # (1.3-7.7) k/uL Potassium (3.5-5.1) mmol/L BUN (7-17) mg/dL Glucose (74-99) mg/dL POC Glucose (mg/dL) 165 H 129 H 150 H (75-99) mg/dL Assessment and Plan Assessment: -Acute exacerbation of asthma patient appears to have moderate intermittent asthma no evidence of pneumonia. -Atrial fibrillation with previous ablations on anticoagulation -Rheumatoid arthritis -CVA TIA in the past -History of lichen planus for which patient is on dapsone which will be continued -History of colitis for which patient is on sulfasalazine. Type of colitis is unknown to me -History of CVA -Hypertension -Fibromyalgia Plan: Continue on current medication regime ,monitoring and symptomatic treatment. Maintain nebulized bronchodilators, systemic steroids, antibiotics. Aggressive pulmonary toileting. Increasing ambulation as tolerated. Discharge placed on hold; will attempt to wean off oxygen by tomorrow .Discharge planning in progress for tomorrow. The impression and plan of care has been dictated as directed. : I performed a history and examination of this patient, discussed the same with the dictator. I agree with the dictator's note ,documented as a scribe. Any additional findings or plans will be noted.
[2018-09-21] MEDS: ACETAMINOPHEN TAB 325 MG TAB PO PRN (23:04)
[2018-09-22 06:57] LABS: Glucose,Whole Blood 105 mg/dL (75-99)
[2018-09-22 07:42] LABS: Basophils % (A) 0 %; Eosinophils % (A) 0 %; HCT 36.8 % (34.0-46.0); HGB 11.1 gm/dL (11.4-16.0); Lymphocytes # (A) 2.8 k/uL (1.0-4.8); Lymphocytes % (A) 24 %; MCH 28.7 pg (25.0-35.0); MCHC 30.3 g/dL (31.0-37.0); MCV 94.8 fL (80.0-100.0); Mean Platelet Volume 7.8; Monocytes % (A) 9 %; Neutrophils # (A) 7.6 k/uL (1.3-7.7); Neutrophils % (A) 65 %; Platelet Count 257 k/uL (150-450); RBC 3.89 m/uL (3.80-5.40); RDW 13.5 % (11.5-15.5); WBC 11.7 k/uL (3.8-10.6)
[2018-09-22 07:48] LABS: Calcium 9.1 mg/dL (8.4-10.2)
[2018-09-22] MEDS: INSULIN ASPART 100 UNIT/ML 1 ML 10 ML VIAL SQ SCH ×2 (08:16→12:37)
[2018-09-22] MEDS: IPRATROPIUM-ALBUTEROL 3 ML NEB INHALATION SCH ×2 (08:34→12:42)
[2018-09-22] MEDS: BUDESONIDE 1 MG/2 ML NEBU INHALATION SCH (08:34)
[2018-09-22] MEDS: AZITHROMYCIN 500 MG TAB PO SCH (08:46)
[2018-09-22] MEDS: ASPIRIN 81 MG PO SCH (08:46)
[2018-09-22] MEDS: DILTIAZEM ORAL 60 MG TAB PO SCH (08:47)
[2018-09-22] MEDS: PANTOPRAZOLE 40 MG TABLET PO SCH (08:47)
[2018-09-22] MEDS: DAPSONE 25 MG TAB PO SCH (08:47)
[2018-09-22] MEDS: METOPROLOL TARTRATE 50 MG TAB PO SCH (08:54)
[2018-09-22] MEDS: methylPREDNISolone SOD SUCCI 40 MG/ML 1 ML VIAL IV SCH (08:54)
[2018-09-22] MEDS: RIVAROXABAN 20 MG TAB PO SCH (08:55)
[2018-09-22] MEDS: sulfaSALAzine 500 MG TAB PO SCH (08:55)
[2018-09-22 11:35] LABS: Glucose,Whole Blood 132 mg/dL (75-99)
[2018-09-22 12:11] VITALS: BP 152/94; RESP 20; TEMP 98.8
[2018-09-22 12:47] VITALS: PULSE 88
--- NOTE | 2018-09-22 13:47 | P.PN ---
Subjective Progress Note Date: 09/22/18 Principal diagnosis: Acute exacerbation of mild intermittent bronchial asthma Progress note dated 09/20/2018 67-year-old female with a history of acute asthma exacerbation, obesity, chronic atrial fibrillation status post ablation, rheumatoid arthritis, DJD, CVA , hypertension, and fibromyalgia. She was seen yesterday in consultation. Her complaints included shortness of breath chest tightness wheezing and cough. We placed her on all the usual medications including duo nebs, Pulmicort, solumedrol, and long-acting beta agonist. She is anticoagulated with a factor X a inhibitor for her chronic atrial fibrillation. She is doing much better today. She feeling much better. Not yet ready for discharge. She still has shortness of breath chest tightness wheezing cough and chest congestion. On 09/21/2018 patient seen in follow-up on medical surgical floor, she is improving, less coughing, no chest tightness, lungs clear to auscultation, no wheezing. Patient is afebrile, currently on 2 L per nasal cannula, her pulse ox is 92%. No fever, no chills. Doing well, from pulmonary perspective patient is stable for discharge home today. On 09/22/2018 patient seen in follow-up on medical surgical floor. Yesterday her discharge was held because of mildly elevated potassium level, which was 5.2 , and on today's labs is 5.0, and the rest of the electrolytes and renal profile are relatively remarkable. Patient has some residual scattered wheezes , but good air entry noted bilaterally, patient is breathing easier. Room air pulse ox is 92%. She has ambulated, tolerated activity fairly well, she does get dyspnea with exertion. Patient has been treated with IV steroids, nebulized bronchodilators, and antibiotics, and she is improving. Objective - Vital Signs Vital signs: Vital Signs Temp 98.8 F 09/22/18 12:10 Pulse 88 09/22/18 12:57 Resp 20 09/22/18 12:10 BP 152/94 09/22/18 12:10 Pulse Ox 92 L 09/22/18 12:10 Intake & Output 09/21/18 09/22/18 09/22/18 18:59 06:59 18:59 Intake Total 150 Balance 150 Weight 102.5 kg Intake: Oral 150 Other: Voiding Method Toilet Toilet Toilet # Voids 2 1 0 # Bowel Movements 1 - Exam No acute distress, oriented 3. No acute respiratory distress. No audible wheezing. No use of accessory muscles. HEENT examination is grossly unremarkable. Mucous membranes are moist. No oral lesions. Neck supple. Full range of motion. No adenopathy thyromegaly or neck vein distention. Cardiovascular examination reveals an irregular rhythm and rate. S1-S2 normal. No discernible murmur noted. Heart sounds are distant. Lungs clear breath sounds diminished at the bases. A few scattered wheezes noted on today's exam. Abdomen soft bowel sounds are heard. No masses or tenderness. Extremities are intact. No cyanosis clubbing or edema. Skin is without rash or lesion. Neurologic examination is brief but nonfocal. - Labs CBC & Chem 7: 09/22/18 06:59 09/22/18 06:59 Labs: Abnormal Lab Results - Last 24 Hours (Table) 09/21/18 09/21/18 09/22/18 Range/Units 17:08 19:55 06:56 WBC (3.8-10.6) k/uL Hgb (11.4-16.0) gm/dL MCHC (31.0-37.0) g/dL BUN (7-17) mg/dL POC Glucose (mg/dL) 129 H 150 H 105 H (75-99) mg/dL 09/22/18 09/22/18 09/22/18 Range/Units 06:59 06:59 11:34 WBC 11.7 H (3.8-10.6) k/uL Hgb 11.1 L (11.4-16.0) gm/dL MCHC 30.3 L (31.0-37.0) g/dL BUN 34 H (7-17) mg/dL POC Glucose (mg/dL) 132 H (75-99) mg/dL Assessment and Plan Plan: Assessment: Acute exacerbation of asthma, which is mild and intermittent in nature, without evidence of pneumonia, but possibly, complicated by purulent tracheobronchitis Morbid obesity Chronic atrial fibrillation with previous ablation Rheumatoid arthritis DJD History of CVA History of hypertension History of fibromyalgia Plan: Patient denies any worsening dyspnea, still has some residual wheezes, but overall improving. She has ambulated, tolerated activity well, is on room air, no fever, no chills, vitals are stable. Serum potassium is 5.0, rest of electrolytes and renal profile are unremarkable. From pulmonary perspective patient is stable for discharge home today. Follow up with Dr. Mendez in the office in one week I performed a history & physical examination of the patient and discussed their management with my nurse practitioner, Letitia Michelle. I reviewed the nurse practitioner's note and agree with the documented findings and plan of care. Lung sounds are clear. The findings and the impression was discussed with the patient. I attest to the documentation by the nurse practitioner. Time with Patient: Less than 30
--- NOTE | 2018-09-22 14:43 | P.DS ---
Providers Date of admission: 09/18/18 16:39 Attending physician: Jose Manuel Means Consults: 09/18/18 18:10 Consult Physician Routine Consulting Provider: Natan Covarrubias Reason/Comments: asthma exac Do you want consulting provider notified?: Yes Primary care physician: Tri [facility] Course: 67-year-old pleasant female came in because of comments of shortness of breath cough without any significant sputum production patient does have history of asthma appears to be an asthma exacerbation with significant wheezing does not have any pneumonic process in the chest x-ray patient was started on systemic steroids inhalational treatments. He shouldn't does have history of atrial fibrillation on anticoagulation with Xarelto. Patient denied any fever chills nausea vomiting. Denied any fever chills patient does not have any leukocytosis or fever. 09/20/2018 maintained on nebulized bronchodilators, systemic steroids, antibiotics. Breathing improving, but Wheezing persists. Denies chest pain, palpitations or increasing shortness of breath. Afebrile. Mild tachycardia, continues to require 2 L nasal cannula to maintain O2 sats in the low 90s. 09/21/2018 breathing continues to improve. Continues to require 2 L nasal cannula O2 to maintain O2 sats in the low 90s, in a patient who does not wear oxygen at home. Earlier in a.m. wheezing significantly improved. By afternoon , increased wheezing. Denies chest pain, palpitations. 09/22/2018 Patient is clinically doing well is not requiring [place] patient will be discharged today on weaning dose of steroids. PHYSICAL EXAMINATION: GENERAL: The patient is alert and oriented x3, not in any acute distress. Well developed, well nourished. HEENT: Pupils are round and equally reacting to light. EOMI. No scleral icterus. No conjunctival pallor. Normocephalic, atraumatic. No pharyngeal erythema. No thyromegaly. CARDIOVASCULAR: S1 and S2 present. No murmurs, rubs, or gallops. PULMONARY: Minimal expiratory wheezing. ABDOMEN: Soft, nontender, nondistended, normoactive bowel sounds. No palpable organomegaly. MUSCULOSKELETAL: No joint swelling or deformity. EXTREMITIES: No cyanosis, clubbing, or pedal edema. NEUROLOGICAL: Gross neurological examination did not reveal any focal deficits. SKIN: No rashes. Assessment and Plan Assessment: -Acute exacerbation of asthma patient appears to have moderate intermittent asthma no evidence of pneumonia. -Atrial fibrillation with previous ablations on anticoagulation -Rheumatoid arthritis -CVA TIA in the past -History of lichen planus for which patient is on dapsone which will be continued -History of colitis for which patient is on sulfasalazine. Type of colitis is unknown to me -History of CVA -Hypertension -Fibromyalgia Plan - Discharge Summary Discharge Rx Participant: No New Discharge Prescriptions: New Azithromycin [Zithromax] 500 mg PO DAILY #4 tab Diltiazem Oral [Cardizem*] 90 mg PO TID #135 tab predniSONE 10 mg PO DIRECTED #30 tab Continue Dapsone 100 mg PO DAILY Metoprolol Tartrate [Lopressor] 100 mg PO BID Rivaroxaban [Xarelto] 20 mg PO DAILY Aspirin EC [Ecotrin Low Dose] 81 mg PO DAILY #30 tablet. Chlorzoxazone [Parafon Forte Dsc] 500 mg PO TID PRN PRN Reason: Muscle Pain Budesonide [Pulmicort] 0.5 mg INHALATION RT-BID Ipratropium-Albuterol Nebulize [Duoneb 0.5 mg-3 mg/3 ml Soln] 3 ml INHALATION RT-QID sulfaSALAzine [Azulfidine] 500 mg PO TID Amitriptyline HCl [Elavil] 50 mg PO HS Albuterol Inhaler [Ventolin Hfa Inhaler] 2 puff INHALATION RT-Q6H PRN PRN Reason: Shortness Of Breath Discontinued Diltiazem Cd [Cardizem CD] 240 mg PO DAILY Discharge Medication List Dapsone 100 mg PO DAILY 06/20/14 [History] Metoprolol Tartrate [Lopressor] 100 mg PO BID 06/20/14 [History] Rivaroxaban [Xarelto] 20 mg PO DAILY 02/26/16 [History] Aspirin EC [Ecotrin Low Dose] 81 mg PO DAILY #30 tablet. 02/28/16 [Rx] Chlorzoxazone [Parafon Forte Dsc] 500 mg PO TID PRN 02/21/17 [History] Budesonide [Pulmicort] 0.5 mg INHALATION RT-BID 12/21/17 [History] Ipratropium-Albuterol Nebulize [Duoneb 0.5 mg-3 mg/3 ml Soln] 3 ml INHALATION RT -QID 12/21/17 [History] Albuterol Inhaler [Ventolin Hfa Inhaler] 2 puff INHALATION RT-Q6H PRN 09/18/18 [ History] Amitriptyline HCl [Elavil] 50 mg PO HS 09/18/18 [History] sulfaSALAzine [Azulfidine] 500 mg PO TID 09/18/18 [History] Azithromycin [Zithromax] 500 mg PO DAILY #4 tab 09/21/18 [Rx] Diltiazem Oral [Cardizem*] 90 mg PO TID #135 tab 09/21/18 [Rx] predniSONE 10 mg PO DIRECTED #30 tab 09/21/18 [Rx] Follow up Appointment(s)/Referral(s): Tri Adames III, MD [Primary Care Provider] - 09/25/18 2:00 pm (09/25) Sushma Mendez MD [STAFF PHYSICIAN] - 09/28/18 3:00 pm Ambulatory/Diagnostic Orders: Complete Blood Count w/diff [LAB.AMB] Time Frame: 3 Days, Location: None Selected Patient Instructions/Handouts: Diltiazem (By mouth), Prednisone (By mouth), Azithromycin (By mouth), Asthma (GEN), COPD (Chronic Obstructive Pulmonary Disease) (GEN) Activity/Diet/Wound Care/Special Instructions: O2 sat. On room air After ambulation: 91-92%
== END 2018-09-22 14:44 | disposition home or self-care (01) | DRG 202 ==
LOC: 3NMEDONC 16:39
PROVIDERS: ADMIT Internal Medicine; ATTEND Internal Medicine
DX: J45.21 Mild intermittent asthma with (acute) exacerbation (principal); Z68.41 Body mass index [BMI] 40.0-44.9, adult; E66.01 Morbid (severe) obesity due to excess calories; I48.2 Chronic atrial fibrillation; I50.9 Heart failure, unspecified; I11.0 Hypertensive heart disease with heart failure; M06.9 Rheumatoid arthritis, unspecified; M19.90 Unspecified osteoarthritis, unspecified site; K52.9 Noninfective gastroenteritis and colitis, unspecified; M79.7 Fibromyalgia; R32 Unspecified urinary incontinence; L43.9 Lichen planus, unspecified; Z79.01 Long term (current) use of anticoagulants; Z79.52 Long term (current) use of systemic steroids; Z81.8 Family history of other mental and behavioral disorders; Z82.49 Family history of ischemic heart disease and other diseases of the circulatory system; Z83.3 Family history of diabetes mellitus; Z86.73 Personal history of transient ischemic attack (TIA), and cerebral infarction without residual deficits; Z87.440 Personal history of urinary (tract) infections; Z90.49 Acquired absence of other specified parts of digestive tract; Z98.51 Tubal ligation status; Z79.899 Other long term (current) drug therapy; Z91.030 Bee allergy status; Z91.041 Radiographic dye allergy status; Z88.5 Allergy status to narcotic agent; Z91.013 Allergy to seafood; Z91.018 Allergy to other foods
CPT/HCPCS: 71045; 80048; 80053; 83036; 85025; 85379; 87502; 94640; 94760

== ENCOUNTER → 2024-06-29 | Outpatient (CLI) | payer MEDICARE | END | disposition home or self-care (01) | LOC: LABPRL 12:00 | PROVIDERS: ATTEND Family Medicine | DX: R77.9 Abnormality of plasma protein, unspecified (principal) | CPT/HCPCS: 84165; 84166 ==